=== PATIENT | male | born 1970 | race Caucasian/White ===

== ENCOUNTER → 2025-03-07 | Outpatient (CLI) | payer SELFPAY ==
--- NOTE | 2025-03-07 | LES_PTH ---
PATIENT: YEMI SALEH LOC: [facility] U#:[id number] AGE/SX: 54/M ROOM: RE03/07/[address]: Dr. Thaddeus Ro MD : [id number] BED: DIS: 03/07/2025 SPEC #: [id number] RECD: 03/07/25 14:49 STATUS: ROCIO REAlondra #: [id number] VALERIA: 03/07/25 00:[address]: Thaddeus Ro DEPT: SURGICAL PATHOLOGY RECD BY: Anibal Hickman ENTERED: 03/08/25 10:11 SP TYPE: Lesion OTHR DR: HENRRY Darnell Tissues: A - Skin of forearm, NOS Procedures: Surgery Specimen Level IV HEADER OPERATION: Left forearm biopsy PRE-OP DIAGNOSIS: Left forearm biopsy TISSUE SUBMITTED: A- Left forearm tissue MICROSCOPIC DIAGNOSIS A. Left forearm, core biopsy: * Focal epidermis with solar lentigo. * Fragments of keratin debris with focal squamous lining, consistent with epidermal inclusion cyst. * No evidence of malignancy seen in these sections. MICROSCOPIC DESCRIPTION Slides are reviewed. GROSS DESCRIPTION A. Received in formalin in a container labeled with the patient's name, date of , and forearm tissue are multiple white-simon, wispy, and friable fragments of soft tissue measuring 1.5 x 0.6 x 0.3 cm in aggregate. No distinct skin is identified. The specimen is submitted in toto in A1. [facility] 03/07/2025 CPT:25582
== END | disposition home or self-care (01) ==
PROVIDERS: PCP Physician Assistant; Referring Provider Surgery; Visit Provider Surgery
DX: L81.4 Other melanin hyperpigmentation (principal); L72.0 Epidermal cyst
CPT/HCPCS: 88305

== ENCOUNTER 2025-04-16 14:27 | Observation (INO) | payer SELFPAY ==
--- NOTE | 2025-04-09 07:30 | EKG12_ITS ---
Test Reason : PREOP Blood Pressure : */* mmHG Vent. Rate : 72 BPM Atrial Rate : 72 BPM P-R Int : 168 ms QRS Dur : 98 ms QT Int : 382 ms P-R-T Axes : 44 -13 33 degrees QTcB Int : 418 ms Normal sinus rhythm Inferior infarct , age undetermined Abnormal ECG Confirmed by ANTONIO JENNINGS, RC ([id number]), video effects editor KALEB ROSALES ([id number]) on 04/10/2025 11:01:26 AM Referred By: Thaddeus Ro Confirmed By: RC ALVAREZ MD
[2025-04-09 09:13] LABS: Hematocrit 45.0 % (40-54); Hemoglobin 14.6 g/dL (13.0-16.5); Mean Corp Hgb Conc 32.4 g/dL (32-36); Mean Corpuscular Volume 91.1 fL (80-94); Mean Platelet Vol. 10.8 fl (6.2-12.0); Platelet Count 325 K/mm3 (150-450); RBC Distribution Width CV 13.1 % (11.6-14.6); RBC Distribution Width SD 42.8 fl (35.1-43.9); Red Blood Count 4.94 M/mm3 (4.6-6.2); White Blood Count 8.6 K/mm3 (4.4-11.0)
[2025-04-09 09:45] LABS: Anion Gap 14 (5-15); BUN 15 mg/dL (4-19); BUN/Creat Ratio 13.1 RATIO (10-20); Calcium,Total 9.3 mg/dL (7.6-11.0); Carbon Dioxide 21.5 mmol/L (21.0-32.0); Chloride 102 mmol/L (98-108); Glucose 265 mg/dL (70-99); Potassium 4.8 mmol/L (3.3-5.1)
--- NOTE | 2025-04-09 21:55 | PAT.ANESEVAL ---
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 When Was Last Pacemaker Check QUESTION #4 FULL TEXT: You/Your Family Experience fever (hyperthermia) with Anesthesia Last Oral Intake Last Oral intake: Last Oral Intake NPO since Meds taken in AM with sips of water? Meds patient instructed to take am of surgery PONV PONV - sprinkler repair technician: PONV - sprinkler repair technician Female No 04/02/25 11:11 HX of Motion Sickness No 04/02/25 11:11 HX of N/V After Surgery No 04/02/25 11:11 Non-Smoker Yes 04/02/25 11:11 Duration of Surgery greater No 04/02/25 11:11 than 60 minutes Number of Risk Factors 1 04/02/25 11:11 PONV Score Low Risk 04/02/25 11:11 Height & Weight Height & Weight: Anesthesia: Height & Weight Height 5 ft 10 in 03/07/25 09:22 Respiratory Assessment Respiratory Assessment - sprinkler repair technician: Respiratory Tract Infection Hx - sprinkler repair technician Hx Respiratory Tract Infection No 04/02/25 11:11 STOP Sleep Apnea STOP Sleep Apnea - sprinkler repair technician: STOP Sleep Apnea - sprinkler repair technician Hx Hypertension Yes 04/02/25 11:11 Hx Sleep Apnea No 04/02/25 11:11 CPAP BIPAP Do you snore loudly (louder No 04/02/25 11:11 than talking or can be heard Do you often feel tired/ No 04/02/25 11:11 fatigued/ sleepy during daytime? Has anyone observed you stop No 04/02/25 11:11 breathing during sleep? STOP Results Negative 04/02/25 11:11 QUESTION #5 FULL TEXT : Do you snore loudly (louder than talking or can be heard through closed doors)? 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 Specify any problems Hx of Preganancy in last 3 N/A 04/02/25 11:11 Months Nurse Filling Out Transfusion [facility] 04/02/25 11:11 & Questions: Date: 04/02/25 04/02/25 11:11 Time: 11:18 04/02/25 11:11 Patient unable to answer at this time (ie. 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 Home Medications ?Medication ?Instructions ?Recorded ?Last Taken ?Type aspirin 81 mg tablet,delayed 81 mg PO QDAY 03/07/25 Unknown History release (Adult Aspirin Regimen) atorvastatin 40 mg tablet 40 mg PO QPM 03/07/25 Unknown History carvedilol 3.125 mg tablet 3.125 mg PO BID 03/07/25 Unknown History clopidogrel 75 mg tablet 75 mg PO QDAY 03/07/25 Unknown History glipizide 10 mg tablet, extended 10 mg PO QDAY 03/07/25 Unknown History release 24 hr metformin 1,000 mg tablet 1,000 mg PO BID 03/07/25 Unknown History rosuvastatin 10 mg tablet (Crestor) 10 mg PO QDAY 03/07/25 Unknown History Allergy/AdvReac Type Severity Reaction Status Date / Time No Known Allergies Allergy Verified 04/02/25 11:09 Surgical History H/O lithotripsy Hx of right heart catheterization Social History (Updated 03/07/25 @ 09:22 by Harriet Lozano LPN) Smoking Status: Former smoker alcohol intake: never substance use type: does not use Audit: Pertinent Findings Pertinent Findings EKG Perinent findings: April 09, 2025. Normal sinus rhythm. Inferior infarct, age undetermined. Recommendation Anesthesia Recommendation Anesthesia recommendation: OPTIMIZED for anesthesia
--- NOTE | 2025-04-10 08:31 | PAT.ANESEVAL ---
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 When Was Last Pacemaker Check QUESTION #4 FULL TEXT: You/Your Family Experience fever (hyperthermia) with Anesthesia Last Oral Intake Last Oral intake: Last Oral Intake NPO since Meds taken in AM with sips of water? Meds patient instructed to take am of surgery PONV PONV - mental health unit lead psychologist: PONV - mental health unit lead psychologist Female No 04/02/25 11:11 HX of Motion Sickness No 04/02/25 11:11 HX of N/V After Surgery No 04/02/25 11:11 Non-Smoker Yes 04/02/25 11:11 Duration of Surgery greater No 04/02/25 11:11 than 60 minutes Number of Risk Factors 1 04/02/25 11:11 PONV Score Low Risk 04/02/25 11:11 Height & Weight Height & Weight: Anesthesia: Height & Weight Height 5 ft 10 in 03/07/25 09:22 Respiratory Assessment Respiratory Assessment - mental health unit lead psychologist: Respiratory Tract Infection Hx - mental health unit lead psychologist Hx Respiratory Tract Infection No 04/02/25 11:11 STOP Sleep Apnea STOP Sleep Apnea - mental health unit lead psychologist: STOP Sleep Apnea - mental health unit lead psychologist Hx Hypertension Yes 04/02/25 11:11 Hx Sleep Apnea No 04/02/25 11:11 CPAP BIPAP Do you snore loudly (louder No 04/02/25 11:11 than talking or can be heard Do you often feel tired/ No 04/02/25 11:11 fatigued/ sleepy during daytime? Has anyone observed you stop No 04/02/25 11:11 breathing during sleep? STOP Results Negative 04/02/25 11:11 QUESTION #5 FULL TEXT : Do you snore loudly (louder than talking or can be heard through closed doors)? 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 Specify any problems Hx of Preganancy in last 3 N/A 04/02/25 11:11 Months Nurse Filling Out Transfusion [facility] 04/02/25 11:11 & Questions: Date: 04/02/25 04/02/25 11:11 Time: 11:18 04/02/25 11:11 Patient unable to answer at this time (ie. 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 Home Medications ?Medication ?Instructions ?Recorded ?Last Taken ?Type aspirin 81 mg tablet,delayed 81 mg PO QDAY 03/07/25 Unknown History release (Adult Aspirin Regimen) atorvastatin 40 mg tablet 40 mg PO QPM 03/07/25 Unknown History carvedilol 3.125 mg tablet 3.125 mg PO BID 03/07/25 Unknown History clopidogrel 75 mg tablet 75 mg PO QDAY 03/07/25 Unknown History glipizide 10 mg tablet, extended 10 mg PO QDAY 03/07/25 Unknown History release 24 hr metformin 1,000 mg tablet 1,000 mg PO BID 03/07/25 Unknown History rosuvastatin 10 mg tablet (Crestor) 10 mg PO QDAY 03/07/25 Unknown History Allergy/AdvReac Type Severity Reaction Status Date / Time No Known Allergies Allergy Verified 04/02/25 11:09 Surgical History H/O lithotripsy Hx of right heart catheterization Social History (Updated 03/07/25 @ 09:22 by Harriet Lozano LPN) Smoking Status: Former smoker alcohol intake: never substance use type: does not use Audit: Pertinent Findings HISTORY of Pertinent Findings History of Pertinent Findings: EKG Pertinent Findings EKG Perinent findings April 09, 2025. Normal sinus 04/09/25 21:58 rhythm. Inferior infarct, age undetermined. Recommendation Anesthesia Recommendation Anesthesia recommendation: F/U recommended (Contact Dr. Ro with A1C and glucose results, ask for clearance from him as this will impair wound healing for the mastectomy)
[2025-04-16] VITALS (15 sets, daily range): BP systolic 128–170; BP diastolic 66–96; PULSE 75–93; RESP 16–20; TEMP 36.2–36.8; O2SAT 89–97; BMI 39.5
--- NOTE | 2025-04-16 09:32 | NM_ITS ---
PROCEDURE: LYMPH NODE INJECTION ONLY 04/16/2025 REASON FOR EXAM: LEFT BREAST CANCER TECHNIQUE: LYMPH NODE INJECTION ONLY Multiple injections of 99m Tc filtered Lymphoseek were administered into the left breast tissue surrounding the lesion site. Anterior and lateral projection images of the chest were subsequently obtained. A hand-held gamma probe was also used to iona the site of sentinel lymph node on the skin surface. At the end of the procedure, the probe was supplied to the general surgery service for intraoperative localization of the sentinel node. RADIOPHARMACEUTICAL DOSE: Intradermal injection of 580 uCi Lymphoseek for left sentinel node imaging. COMPARISON: None. NM/Lymph Node Injection Only IMPRESSION: Intradermal injection Lymphoseek in the left breast for sentinel node imaging. Reading Location: [place] [id number]
[2025-04-16] MEDS: Lactated Ringers 1,000 ML 15 ML IV (10:08)
--- NOTE | 2025-04-16 10:32 | PCM.PRE.AN2 ---
ASA Classification* ASA Classification ASA Classification: 3 Assessment & Plan Anesthesia* Anesthesia Assessment Anesthesia Assessment: Discussed sedation and/or anesthesia options, risks, benefits, and alternatives with patient/parents/legal guardian/POA. Questions invited. The patient/parents/legal guardian/POA seems to understand and agrees to proceed with anesthesia plan. Reviewed the physical assessment, medical history, allergy history and patient home medications list prior to surgery/procedure/anesthetic and documented any changes. Performed airway and anesthesia risk assessments. Anesthesia Type Anesthesia Type: General History Source History Obtained from:: Patient and Chart Anesthesia Focused Assessment* Temperature: 98.1 F Pulse Rate: 75 Blood Pressure: 170/96 Respiratory Rate: 20 Pulse Ox: 96 Oxygen Delivery Method: Room Air Airway Assessment Mouth opens: >3 cm Mallampati Score: II Teeth Condition: Intact Neck Range of motion (ROM): Full ROM Labs Anesthesia Preop lab: CBC WBC 8.6 K/mm3 (4.4-11.0) 04/09/25 07:45 04/09/25 RBC 4.94 M/mm3 (4.6-6.2) 04/09/25 07:45 04/09/25 Hgb 14.6 g/dL (13.0-16.5) 04/09/25 07:45 04/09/25 Hct 45.0 % (40-54) 04/09/25 07:45 04/09/25 Plt Count 325 K/mm3 (150-450) 04/09/25 07:45 04/09/25 CHEMISTRY Potassium 4.8 mmol/L (3.3-5.1) 04/09/25 07:45 04/09/25 Sodium 137 mmol/L (133-145) 04/09/25 07:45 04/09/25 BUN 15 mg/dL (4-19) 04/09/25 07:45 04/09/25 Creatinine 1.14 mg/dL (0.70-1.20) 04/09/25 07:45 04/09/25 Glucose 265 mg/dL (70-99) H 04/09/25 07:45 04/09/25 POC Glucose 247 mg/dL (74-106) H 04/16/25 09:53 04/16/25 COAG Pre-Assessment Diagnosis/Proposed Procedure Planned Operative Procedure(s): (L) Mastectomy Left with SLN biopsy and excision of left forearm mass Anesthesia History Anesthesia History - 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 When Was Last Pacemaker Check QUESTION #4 FULL TEXT: You/Your Family Experience fever (hyperthermia) with Anesthesia Last Oral Intake Last Oral intake: Last Oral Intake NPO since 21:00 04/16/25 09:55 Meds taken in AM with sips of Yes 04/16/25 09:55 water? Meds patient instructed to take am of surgery PONV PONV - channel lip stiffener insoles: PONV - channel lip stiffener insoles Female No 04/02/25 11:11 HX of Motion Sickness No 04/02/25 11:11 HX of N/V After Surgery No 04/02/25 11:11 Non-Smoker Yes 04/02/25 11:11 Duration of Surgery greater No 04/02/25 11:11 than 60 minutes Number of Risk Factors 1 04/02/25 11:11 PONV Score Low Risk 04/02/25 11:11 Height & Weight Height & Weight: Anesthesia: Height & Weight Height 5 ft 10 in 04/16/25 09:55 Weight: 125 kg 04/16/25 09:55 Body Mass Index (BMI) 39.5 04/16/25 09:55 Respiratory Assessment Respiratory Assessment - channel lip stiffener insoles: Respiratory Tract Infection Hx - channel lip stiffener insoles Hx Respiratory Tract Infection No 04/02/25 11:11 STOP Sleep Apnea STOP Sleep Apnea - channel lip stiffener insoles: STOP Sleep Apnea - channel lip stiffener insoles Hx Hypertension Yes 04/02/25 11:11 Hx Sleep Apnea No 04/02/25 11:11 CPAP BIPAP Do you snore loudly (louder No 04/02/25 11:11 than talking or can be heard Do you often feel tired/ No 04/02/25 11:11 fatigued/ sleepy during daytime? Has anyone observed you stop No 04/02/25 11:11 breathing during sleep? STOP Results Negative 04/02/25 11:11 QUESTION #5 FULL TEXT : Do you snore loudly (louder than talking or can be heard through closed doors)? 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 Specify any problems Hx of Preganancy in last 3 N/A 04/02/25 11:11 Months Nurse Filling Out Transfusion [facility] 04/02/25 11:11 & Questions: Date: 04/02/25 04/02/25 11:11 Time: 11:18 04/02/25 11:11 Patient unable to answer at this time (ie. confused, unrespo /Reproduction History /Reproductive History - channel lip stiffener insoles: /Reproductive Hx- channel lip stiffener insoles Hx Now Gestational Age (in weeks): EDC: Hx Hx Para Hx Section SAB Active Medications Active Medications: Current Medications Generic Name Dose Route Start Last Admin Trade Name Freq PRN Reason Stop Dose Admin Cefazolin Sodium 3 gm/ Sodium 115 mls @ 200 mls/hr 04/16/25 11:00 Chloride IV 04/16/25 11:34 INTRAOP ONE Lactated Ringer's 1,000 mls @ 15 mls/hr 04/16/25 09:45 04/16/25 10:08 IV 15 mls/hr .Q48H JACQUIE Administration PFSH Medical History Cardiology follow-up encounter Wears dentures Diabetes History of renal disease Fatty liver High cholesterol Easy bruising Dietary restriction Former smoker Hypertension History of heart attack Mass of left forearm Normal colonoscopy 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 Home Medications ?Medication ?Instructions ?Recorded ?Last Taken ?Type aspirin 81 mg tablet,delayed 81 mg PO QDAY 03/07/25 04/08/25 History release (Adult Aspirin Regimen) atorvastatin 40 mg tablet 40 mg PO QPM 03/07/25 04/15/25 History carvedilol 3.125 mg tablet 3.125 mg PO BID 03/07/25 04/16/25 History clopidogrel 75 mg tablet 75 mg PO QDAY 03/07/25 04/08/25 History glipizide 10 mg tablet, extended 10 mg PO QDAY 03/07/25 04/15/25 History release 24 hr metformin 1,000 mg tablet 1,000 mg PO BID 03/07/25 04/15/25 History rosuvastatin 10 mg tablet (Crestor) 10 mg PO QDAY 03/07/25 04/15/25 History Allergy/AdvReac Type Severity Reaction Status Date / Time No Known Allergies Allergy Verified 04/16/25 09:50 Surgical History H/O lithotripsy Hx of right heart catheterization Social History (Updated 03/07/25 @ 09:22 by Harriet Lozano LPN) Smoking Status: Former smoker alcohol intake: never substance use type: does not use Review of Systems (Anesthesia) ROS Narrative System reviewed and no additional complaints, except as documented. Physical Exam Const alert, oriented x3 and average body habitus HEENT dentition normal Neck full ROM Resp normal respiratory effort and normal air movement Cardio regular rate and regular rhythm Back/Spine normal ROM Extremity full ROM Skin Rashes: no rashes Neuro oriented x3 and moves all extremities
--- NOTE | 2025-04-16 10:52 | PCM.HP.STD ---
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 Home Medications ?Medication ?Instructions ?Recorded ?Last Taken ?Type aspirin 81 mg tablet,delayed 81 mg PO QDAY 03/07/25 04/08/25 History release (Adult Aspirin Regimen) atorvastatin 40 mg tablet 40 mg PO QPM 03/07/25 04/15/25 History carvedilol 3.125 mg tablet 3.125 mg PO BID 03/07/25 04/16/25 History clopidogrel 75 mg tablet 75 mg PO QDAY 03/07/25 04/08/25 History glipizide 10 mg tablet, extended 10 mg PO QDAY 03/07/25 04/15/25 History release 24 hr metformin 1,000 mg tablet 1,000 mg PO BID 03/07/25 04/15/25 History rosuvastatin 10 mg tablet (Crestor) 10 mg PO QDAY 03/07/25 04/15/25 History Allergy/AdvReac Type Severity Reaction Status Date / Time No Known Allergies Allergy Verified 04/16/25 09:50 Surgical History H/O lithotripsy Hx of right heart catheterization Social History (Updated 03/07/25 @ 09:22 by Harriet Lozano LPN) Smoking Status: Former smoker alcohol intake: never substance use type: does not use ROS Constitutional Constitutional: Reports systems reviewed and no addt'l complaints, except as documented Eyes Eyes: Reports systems reviewed and no addt'l complaints, except as documented ENT HEENT: Reports systems reviewed and no addt'l complaints, except as documented Cardiovascular Cardiovascular: Reports systems reviewed and no addt'l complaints, except as documented Respiratory/Chest Respiratory/Chest: Reports systems reviewed and no addt'l complaints, except as documented Gastrointestinal Gastrointestinal: Reports systems reviewed and no addt'l complaints, except as documented Genitourinary Genitourinary: Reports systems reviewed and no addt'l complaints, except as documented Musculoskeletal Musculoskeletal: Reports systems reviewed and no addt'l complaints, except as documented Integumentary Integumentary: Reports systems reviewed and no addt'l complaints, except as documented Vital Signs Vital Signs Vital Signs: 04/16/25 09:55 04/16/25 09:55 04/16/25 10:33 Temperature 98.1 F 98.1 F Temperature Source Temporal Pulse Rate 75 75 Respiratory Rate 20 H 20 H Respiratory Pattern Normal Blood Pressure 170/96 H 170/96 H Blood Pressure Mean 120 Blood Pressure Source Monitor Blood Pressure Position Semi-Fowlers Blood Pressure Location Left Arm Pulse Ox 96 96 Oxygen Delivery Method Room Air Room Air Weight Weight: 275 lb 9.245 oz Body Mass Index (BMI) 39.5 Physical Exam Const alert, oriented x3 and no apparent distress Results Lab / Micro Data 04/09/25 07:45 04/09/25 07:45 Labs: Laboratory Results - last 24 hr 04/16/25 09:53: POC Glucose 247 H Assessment & Plan Assessment/Plan (1) Mass of left forearm: (2) 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
[2025-04-16] MEDS: Cefazolin 3 GM in 0.9% Normal Saline (100mL Bag) 100 ML IV (11:00)
--- NOTE | 2025-04-16 11:00 | LYMN_PTH ---
PATIENT: YEMI SALEH LOC: MS3 U#:[id number] AGE/SX: 54/M [place] [facility] [place]16/[address]: Dr. Thaddeus Ro MD : 1970 BED: 1 DIS: 04/17/2025 SPEC #: [id number] RECD: 04/16/25 12:09 STATUS: ROCIO REAlondra #: [id number] VALERIA: 04/16/25 11:[address]: Thaddeus Ro DEPT: SURGICAL PATHOLOGY RECD BY: Anibal Hickman ENTERED: 04/16/25 12:53 SP TYPE: LYMPH NODE OTHR DR: HENRRY Darnell Tissues: A - LYMPH NODE BIOPSY B - Left breast, NOS C - LYMPH NODE BIOPSY D - Forearm, NOS Procedures: Frozen Section (charge) Immunohistochemical Stains Frozen Section Add'l ([facility]) Surgery Specimen Level V IHC Stain ADDITIONAL HEADER OPERATION: Mastectomy with left sentinel lymph node biopsy and excision of left forearm PRE-OP DIAGNOSIS: Mass of left forearm, 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 Left sentinel lymph node, biopsy: Negative for macrometastasis. B. Left sentinel lymph node, #2, biopsy: Negative for macrometastasis. MICROSCOPIC DIAGNOSIS A. Lymph node, sentinel, left excision: - Negative for metastasis (0/1). - IHC for panKeratin supports the histologic impression. B. Breast, left, invasive ductal carcinoma, mastectomy: - Invasive carcinoma with sebaceus differentiation (2.1 cm), surgical margins free - see note. Note: The histologic differential diagnosis includes sebaceous carcinoma of the skin vs invasive ductal carcinoma of the breast with sebaceous differentiation. Formal (outside) consultation with a breast expert pathologist is PENDING and the beauty sales consultant's opinion will be reported in an addendum. C. Lymph node, sentinel, left, excision: - Negative for metastasis (0/1). - IHC for panKeratin supports the histologic impression. D. Forearm, left, mass, excision: - Epidermal inclusion cyst. COMMENT The case was discussed with Dr Tu Ro 05/07/25. The case will be sent for formal consultation with a breast specialist pathologist. The beauty sales consultant's diagnosis will be reported in an addendum. MICROSCOPIC DESCRIPTION Slides are reviewed. All matched controls reacted appropriately. These tests were developed and their performance characteristics determined by [facility]. They may not have been cleared or approved by the U.S. Food and Drug Administration. The FDA has determined that such clearance or approval is not necessary.? The above immunohistochemical/dualISH?markers are reviewed by the Pathologist. GROSS DESCRIPTION A. Received fresh for frozen section diagnosis labeled with the patient's name and date of . Designated as left sentinel lymph node is a 1.0 x 0.7 x 0.4 cm intact lymph node. Blue dye is present. The specimen is serially sectioned and entirely submitted for frozen section diagnosis and subsequently placed in cassette A1 for permanent sections. B. Received fresh and subsequently placed in formalin, labeled with the patient's name and date of . Designated as L breast mastectomy long tag lateral short tag superior is a 472.2 g mastectomy measuring 21.4 x 17.3 x 4.5 cm (ML/SI/AP). The specimen is surfaced by a 16.0 x 6.5 cm dos santos skin ellipse. There is a central nipple and areola, 1.4 cm and 2.3 cm, respectively. The nipple is firm with red-purple discoloration. There is blue surgical dye discoloration of the skin at the inferior and posterior aspects of the specimen. An axillary tail is not grossly present. Muscle is not present on the posterior aspect.There is a long suture designated as lateral and a short suture designated as superior. The specimen is inked as follows: Superior: BlueInferior: Green Posterior: BlackMedial: YellowLateral: Louisa The specimen is serially sectioned into 18 levels revealing a 2.1 x 2.0 x 1.9 cm indurated, white subareolar mass with slightly irregular borders, spanning levels 9 and 10. A ribbon biopsy clip is identified in level 9. The mass is located the following distances from:Superior: 3.6 cmInferior: 1.7 cmPosterior: 3.1 cmNipple: Grossly involved No secondary masses are grossly appreciated The remaining cut surfaces are fibrofatty (95% fatty, 5% fibrotic) with patchy blue dye discoloration throughout. Produce Team Member sections are submitted as follows: B1: Mass to nipple/areolaB2: Mass to nipple and areola with biopsy siteB3: Mass to surrounding parenchyma, level 10B4: Closest superior/inferior margins, level 9/10B5: Closest posterior margin, level 9B6: Upper outer quadrant, level 17B7: Upper inner quadrant, level 6B8: Lower outer quadrant, level 14B9: Lower inner quadrant, level 7 Cold ischemic time: 36 minutesFormalin fixation time: 31 hours C. Received fresh for frozen section diagnosis labeled with the patient's name and date of . Designated as left sentinel node #2 is a 1.3 x 0.8 x 0.8 cm lymph node with attached soft tissue. Blue dye is present. Sectioning reveals an additional, possible 0.9 x 0.5 x 0.2 cm lymph node which is bisected. The specimen is entirely submitted for frozen section diagnosis and subsequently placed 2 cassettes as follows: C1: Smaller, possible lymph nodeC2: Larger lymph node with blue dye D. Received in formalin labeled with the patient's name and date of . Designated as left forearm mass is a 3.3 x 2.3 x 0.4 cm previously disrupted dos santos-white cyst wall with adherent, sebaceous like material. Produce Team Member sections are submitted in 1 cassette. [place] 04/17/2025 CPT:[id number] ADDENDUM ADDENDUM ADDENDUM ADDENDUM ADDENDUM ADDENDUM ADDENDUM ADDENDUM ADDENDUM ADDENDUM ADDENDUM ADDENDUM ADDENDUM ADDENDUM ADDENDUM ADDENDUM ADDENDUM ADDENDUM ADDENDUM ADDENDUM ADDENDUM ADDENDUM ADDENDUM ADDENDUM ADDENDUM ADDENDUM ADDENDUM 07/04/2025 08:46 ADDENDUM 05/31/2025 16:28 ADDENDUM 05/31/2025 16:28 ADDENDUM 05/31/2025 16:28 ADDENDUM 05/31/2025 16:28 ADDENDUM 05/31/2025 16:28 This addendum is added to incorporate an outside pathology consultation report. The case was examined at [facility] by Dr. Jay and the following diagnosis was rendered. Left breast, mastectomy: Invasive carcinoma with sebaceous differentiation, involving skin, subcutaneous tissue and breast tissue, 2.1cm by report. See note. NOTE: On provided immunostains the tumor cells are positive for ER (>95%, moderate to strong), MS (>95%, strong), AR (>95%, strong), CK7, GATA3 and TRPS1 and show strong membrane staining for E-cadherin. They are negative for HER2 (0; null) and negative mucin on a provided mucicarmine stain. On immunostains performed at [facility], the tumor cells are negative for CD10 and D2-40. On the slides provided for review, the bulk of the tumor appears to be in skin and subcutaneous tissue with superficial involvement of the breast paranchema. While this raises concern for a cutaneous rather than a breast origin, after reviewing this case Dr. Rusty Cummins ([facility] Dermatopathology) favors a breast over a cutaneous origin for the following reasons : 1) there is no clear evidence of an epidermal connection or in situ component; 2) sebaceous carcinomas are less likely than breast carcinomas to express ER and MS, particularly extra-ocular sebaceous carcinomas which are typically triple negative; 3) the strong expression of TRPS1 is uncommon in sebaceous carcinomas, However, the possibility of a cutaneous origin cannot be completely excluded. Please see complete above mentioned consultation report in EMR This addendum is added to incorporate an outside pathology consultation report. ONCOTYPE DX BREAST RECURRENCE SCORE REPORT: Recurrence Score Result: 7 Distant recurrence Risk at 10 years: 5% Group Average Absolute Chemotherapy Benefit: No apparent chemotherapy benefit (<1%) Please see complete above mentioned consultation report in EMR
[2025-04-16] MEDS: Bupiv/Epi 0.25% 30 ML Vial ×2 (11:25→12:31)
--- NOTE | 2025-04-16 13:15 | PCM.POST.ANE ---
Anesthesia: Postop Eval I Current Vital Signs Temperature: 97.3 F Pulse Rate: 82 Blood Pressure: 148/94 Respiratory Rate: 16 Pulse Ox: 94 Oxygen Delivery Method: Nasal Cannula Oxygen Flow Rate (L/min): 4 Assessment Airway patent: Yes Spontaneous unlabored respirations: Yes Mental status: Awake and Calm nausea: No Vomiting: No Anesthesia Complication: No Fluid Hydration Crystalloid volume administer (ml): 1,000 Total IV fluid infused: 1,000 Progress Note Anesthesia document: Postop Eval 1 completed: Yes
--- NOTE | 2025-04-16 13:19 | PCM.OPRPT ---
Problems Associated Problem List Diagnoses (1) Mass of left forearm: (2) 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: Oncology: Neville Requirements . Oncology surgical intervention performed: [place] Node Biopsy for Breast Cancer performed [place] Node Bx - Breast Cancer: Synoptic Portion: Element Response Options Operation performed with curative intent. Yes Tracer(s) used to identify sentinel nodes in the upfront surgery (non-neoadjuvant) setting (select all that apply). Dye; Radioactive tracer Tracer(s) used to identify sentinel nodes in the neoadjuvant setting (select all that apply).[ N/A.] All nodes (colored or non-colored) present at the end of a dye-filled lymphatic channel were removed. Yes All significantly radioactive nodes were removed. Yes All palpably suspicious nodes were removed. Yes Biopsy-proven positive nodes marked with clips prior to chemotherapy were identified N/A.] Multi Select Codes Integumentary Integumentary CPT Codes: 33907 Mast simple complete Musculoskeletal Musculoskeletal CPT Codes: 69501 Ex arm/elbow anastasia deep < 5 cm Respiratory/Cardiovascular Resp/Cardiovascular CPT Codes: 59811 Biopsy/removal lymph nodes Operative Report (Standard) Operative Information Date of Procedure: 04/16/25 Pre-Operative Diagnosis: 1. Left breast cancer 2. Left forearm sebaceous cyst Post-Operative Diagnosis: Same Surgery/Procedure Performed: 1. Left breast simple mastectomy 2. Left axillary sentinel lymph node biopsy 3. Excision of left forearm sebaceous cyst airline flight attendant: Yes Clinical Programmer: Jaymie Lakhani Tasks completed by operations administrative assistant: Closing and Retracting Additional statistical assistant?: No Type of Anesthesia: General and Local RN Documented Start/Stop Times: Operation Date: 04/16/25 11:00 Case Time Into Pre-Op 04/16/25 09:31 Anesthesia Start 04/16/25 11:00 Into Room 04/16/25 11:00 Out of Pre-Op 04/16/25 11:00 Procedure Start 04/16/25 11:26 Procedure End 04/16/25 13:04 Anesthesia End 04/16/25 13:06 Out of Room 04/16/25 13:06 Into Recovery 04/16/25 13:11 Procedure Start Time: 11:26 Procedure Stop Time: 13:04 Select all DRAINS/GRAFTS/IMPLANTS that apply: Implanted device Implanted device details: MONSERRAT drain x 2 Special Medications: 3 g Ancef IV preop Estimated Blood Loss: 30 cc Specimen collected: Yes Description of specimen(s) removed: 1. Left breast tissue 2. Left axillary sentinel lymph node x 2 3. Left forearm subcutaneous mass Description of surgery: The patient is a 54-year-old male recently seen through the office with an abnormality involving the left breast/nipple. This was biopsied at an outside hospital and came back positive for infiltrating ductal carcinoma. He also described a mass on the forearm of the left upper extremity. I offered him a left breast mastectomy with sentinel lymph node biopsy along with excision of the left forearm mass. We discussed the details of the planned procedure including risk benefits and alternatives. He wished to proceed. Patient was brought to the operative room today following informed consent. Preoperative antibiotics were given and a timeout was performed. Earlier in the day Lymphoseek was injected into the left periareolar area. Once placed on the operative table general anesthesia was induced. Once asleep 10 mL of Lymphazurin blue was injected into the left periareolar area. The area was then prepped and draped in the usual sterile manner. The planned incision was marked out using 2 hemostats and a suture and then the marking pen was used to traced the planned incision. Local anesthetic was injected into the area of planned incision. #10 blade was then used to make the incisions. Bovie electrocautery was then used to develop a subcutaneous plane. Skin rakes were used to aid with retraction. The superior flap was created first followed by the inferior flap. Once these flaps were taken down to the chest wall superiorly and inferiorly, the left breast tissue was taken off the chest wall in a medial to lateral fashion. The left breast was oriented such that a long stitch ivy the lateral aspect of the specimen and a short stitch ivy the superior aspect. This was then sent off for permanent pathology. Next the sentinel lymph node portion of the operation was begun. Neoprobe was used to identify regions of elevated radioactivity. Careful dissection was performed using a tonsil. A total of 2 sentinel lymph nodes were identified by both blue dye as well as elevated radioactivity counts. These were sent to pathology for frozen section. The frozen section for both lymph nodes eventually came back as negative. The wound was then irrigated with a liter of saline. Hemostasis was excellent. 2 MONSERRAT drains were then brought out through the left chest laterally. These were then secured to the skin using drain sutures. The mastectomy incision was then closed in layers using first 2-0 Vicryl in a subdermal layer. 4-0 Vicryl was then used to run the skin incision. Skin glue and a Mepilex was then applied. Attention was then turned to the left forearm. Local anesthetic was infiltrated into this region. About a 3 cm incision was made overlying the left forearm mass. The mass itself measured 4.6 cm in greatest diameter. Clinically that this was consistent with a sebaceous cyst. The cyst capsule and contents were excised completely. The resultant wound was then copiously irrigated and then closed using 3-0 Vicryl and 4-0 Vicryl. Skin glue and an OpSite were then applied as dressing. The patient was then awakened from anesthesia. A double wide [place] wrap was placed around the chest for compression. He was placed back on the transport cart and taken to recovery in good condition Surgical Findings: [place] lymph nodes x 2 both negative Complications Complications: No Admit VTE Documentation VTE Present on Admission: No VTE Mechan Device Prophylaxis: SCD's VTE Pharm Prophylaxis ordered?: No Reason prophylaxis not ordered: Treatment Not Indicated
--- NOTE | 2025-04-16 14:17 | POSTOPAN2_ITS ---
Anesthesia Postop Eval I Sum Postop Eval Completion status Anesthesia document: Postop Eval 1 completed: Yes Anesthesia Postop Eval I Summary Anesthesia Postop Eval I Summary: Anesthesia Postop Eval I: Assessment Summary Airway patent Yes 04/16/25 13:16 HOME OFFICE REPRESENTATIVE.[email or web address] Spontaneous unlabored Yes 04/16/25 13:16 HOME OFFICE REPRESENTATIVE.ANANT respirations Mental status Awake,Calm 04/16/25 13:16 HOME OFFICE REPRESENTATIVE.[email or web address] nausea No 04/16/25 13:16 HOME OFFICE REPRESENTATIVE.[email or web address] Vomiting No 04/16/25 13:16 HOME OFFICE REPRESENTATIVE.[email or web address] Anesthesia Postop Eval I: Fluid Summary Crystalloid volume administer 1,000 04/16/25 13:16 HOME OFFICE REPRESENTATIVE.SKOBY (ml) Colloids volume administered ( ml) Blood Product volume administered (ml) Total IV fluid infused 1,000 04/16/25 13:16 HOME OFFICE REPRESENTATIVE.[email or web address] Anesthesia Postop Eval I: Summary Notes Anesthesia Complication No 04/16/25 13:16 HOME OFFICE REPRESENTATIVE.ANANT Anesthesia Complication Comment: Post-operative progress note Anesthesia: Postop Eval II Evaluation Mental status: Awake and Calm Pain Level: 4 nausea: No Vomiting: No Complications Anesthesia Complication: No
--- NOTE | 2025-04-16 14:17 | PCM.POSTANE2 ---
Anesthesia Postop Eval I Sum Postop Eval Completion status Anesthesia document: Postop Eval 1 completed: Yes Anesthesia Postop Eval I Summary Anesthesia Postop Eval I Summary: Anesthesia Postop Eval I: Assessment Summary Airway patent Yes 04/16/25 13:16 INTAKE ASSESSOR.[email or web address] Spontaneous unlabored Yes 04/16/25 13:16 INTAKE ASSESSOR.ANANT respirations Mental status Awake,Calm 04/16/25 13:16 INTAKE ASSESSOR.[email or web address] nausea No 04/16/25 13:16 INTAKE ASSESSOR.SKOBY Vomiting No 04/16/25 13:16 INTAKE ASSESSOR.[email or web address] Anesthesia Postop Eval I: Fluid Summary Crystalloid volume administer 1,000 04/16/25 13:16 INTAKE ASSESSOR.[email or web address] (ml) Colloids volume administered ( ml) Blood Product volume administered (ml) Total IV fluid infused 1,000 04/16/25 13:16 INTAKE ASSESSOR.[email or web address] Anesthesia Postop Eval I: Summary Notes Anesthesia Complication No 04/16/25 13:16 INTAKE ASSESSOR.ANANT Anesthesia Complication Comment: Post-operative progress note Anesthesia: Postop Eval II Evaluation Mental status: Awake and Calm Pain Level: 4 nausea: No Vomiting: No Complications Anesthesia Complication: No
[2025-04-16] MEDS: 0.9% Saline Lock 10 ML Syringe IV ×2 (19:38→22:36)
[2025-04-16] MEDS: 0.9% Normal Saline (1000mL) 1,000 ML 100 ML IV (22:36)
--- OUTSIDE RECORDS SUMMARY | 2025-04-16 22:57 | XMS RPT_ITS | CCD ---
Author Organization [facility] Care Team Providers Care Insole Rounder Name Role Phone Ivy Julian PA-C Unavailable Ivy Julian PA-C Unavailable Cardiology Provider Unavailable Unavailable General Surgery Provider Unavailable Unavail able Seble VALLESN, Kat Unavailable Seth VALLESN, Clara Unavailable Unavailable Trung DROP BOARD MAN, Negro Unavailable Unavailable Inder DROP BOARD MAN, Nerissa K Unavailable Unavai Ernestine Sawyer Unavailable Unavailable Rick DROP BOARD MAN, Rosio Sultana Unavailable Unavailab ras Crowley LPN, Anastasiya Unavailable Unavailabl e Unavailable Unavailable Holli Sam LPN Unavailable Unavailabl e Unavailable Unavailable IVY LAWRENCE Primary Care Physician [phone] [facility] Attending Unava ilIVY Lopez Primary Care Unavailable GUSTAVO BELLO MD Attending Unavailable IVY LAWRENCE Primary Care Unavailable GUSTAVO BELLO MD Attending Unavailable IVY LAWRENCE Primary Care Unavailable [facility] [place] Attending Unava ilmelanie SALES IVY Primary Care Unavailable IVY JULIAN Primary Care Provider Yang Ibanez DO Emergency Provider UnavailLakesha Benitez MD Attending Provider Lakesha Bradford Attending Unavailable DINO GOMEZ Primary Care Unavailable Lakesha Bradford Attending Unavailable DINO GOMEZ Primary Care Unavailable Lakesha Bradford Attending Unavailable DINO GOMEZ Primary Care Unavailable DINO GOMEZ Primary Care Unavailable Yang Ibanez Attending Unavailable Lakesha Bradford Attending Unavailable DINO GOMEZ Primary Care Unavailable JUSTICE SHANNON Attending Unavailable ELIEL SALES IVY Primary Care Unavailable [facility] Unavailable IVY JULIAN Primary Care Unavailable IVY JULIAN Consulting Unavailable IVY JULIAN Attending Unavailable IVY JULIAN Admitting Unavailable PROVIDER, UNKNOWN Consulting Unavailable IVY JULIAN Consulting Unavailable LAKESHA CHOWDARY Admitting Unavailable LAKESHA CHOWDARY Primary Care Unavailable LAKESHA CHOWDARY Attending Unavailable PROVIDER, UNKNOWN Consulting Unavailable Julian PA, Ivy Primary Care Provider Ivy Lawrence Referring Provider [phone] Jia JENNINGS, Dr. Thaddeus Forte Attending Provider Jia JENNINGS, Dr. Thaddeus Forte Referring Provider Thaddeus Ro Attending Unavailable Ivy Lawrence Primary Care Unavailable Ivy Lawrence Referring Unavailable Thaddeus Ro Attending Unavailable Thaddeus Ro Referring Unavailable Eliel SALES Ivy Primary Care Unavailable Thaddeus Ro Referring Unavailable Eliel SALES, [place] Primary Care Unavailable Thaddeus Ro Attending Unavailable Medications Current Medications Medication Drug Class(es) Dates Sig (Normalized) Sig (Original) acetaminophen 300 mg-codeine 30 mg tablet (1 source) Start: 06-11-2024 take 1 tablet by mouth every six hours as needed acetaminophen 300 mg-codeine 30 mg tablet acetaminophen 300 mg-codeine 30 mg tablet, TAKE 1 TABLET BY MOUTH EVERY 6 HOURS NEEDED Start Date: 06/11/24 Status: Ordered aspirin 81 mg delayed release oral tablet (20 sources) Platelet Aggregation Inhibitor, Nonsteroidal Anti-inflammatory Drug Start: 03-07-2025 take 1 tablet by mouth once daily Aspirin (Adult Aspirin Regimen) 81 mg tablet,delayed release (DR/EC) Active 81 mg PO daily March 07, 2025 12:00am Start: 06-06-2024 take 1 tablet by naveen th once daily Aspirin 81 mg Tablet Active 81 MG PO Every Day June 06, 2024 12:00am Start: 07-08-2021 take 1 tablet by naveen th once daily Aspirin Childrens 81 MG Oral Tablet Chewable ; 1 Tablet Chewable daily for 0 days Quantity: 90 {Tablet} Refills: 1 Ordered: 08-Jul-2021 SARAH Julian Start: 08-Jul-2021 Start: 11-15-2014 Aspir-Low 81 m g oral delayed release tablet Dose : 81 mg = 1 tab(s), Oral, Daily, # 30 tab(s), 5 Refill(s) Start Date: 11/15/14 Status: Ordered atorvastatin 40 mg oral tablet (20 sources) HMG-CoA Reductase Inhibitor Start: 12-07-2024 atorvastatin 40 mg tablet ; 1 (one) tablet at bedtime or with evening meal for 0 days Quantity: 90 {Tablet} Refills: 0 Ordered: 07-Dec-2024 SARAH Julian Start: 07-Dec-2024 Comments: replacing pravastatin Start: 12-03-2024 atorvastatin 4 0 mg tablet ; 1 (one) tablet at bedtime or with evening meal for 0 days Quantity: 90 {Tablet} Refills: 0 Ordered: 03-Dec-2024 MD Hal Vora Start: 03-Dec-2024 Comments: replacing pravastatin Start: 09-03-2024 atorvastatin 4 0 mg tablet ; 1 (one) tablet at bedtime or with evening meal for 0 days Quantity: 30 {Tablet} Refills: 2 Ordered: 03-Sep-2024 MD Hal Vora Start: 03-Sep-2024 Comments: replacing pravastatin Start: 08-03-2023 atorvastatin 4 0 mg tablet ; 1 (one) tablet at bedtime or with evening meal for 0 days Quantity: 30 {Tablet} Refills: 2 Ordered: 03-Aug-2023 KOREY Nino Start: 03-Aug-2023 Comments: replacing pravastatin Start: 10-07-2015 End: 06-09-2016 take 1.5 tablets by mouth once daily ATORVASTATIN CALCIUM, 20MG (Oral Tablet) ; 1.5 Tablet qd for 0 days Quantity: 45 {Tablet} Refills: 5 Ordered: 09-Jun-2016 KOREY Crowley Start: 07-Oct-2015 End: 09-Jun-2016 Status: Inactive Comment on above: replacing pravastati n carvedilol 3.125 mg oral tablet (20 sources) alpha-Adrenergic Hermila, beta-Adrenergic Hermila Start: 12-03-2024 carvediloL 3.125 mg tablet ; 1 Tablet two times daily for 0 days Quantity: 180 {Tablet} Refills: 0 Ordered: 01-Mar-2025 SARAH Julian Start: 01-Mar-2025 Start: 11-15-2014 carvediloL 3.1 25 mg tablet ; 1 Tablet bid for 30 days Quantity: 180 {Tablet} Refills: 1 Ordered: 30-May-2023 SARAH Julian Start: 30-May-2023 clopidogrel 75 mg oral tablet (20 sources) P2Y12 Platelet Inhibitor Start: 12-03-2024 clopidogreL 75 mg tablet ; 1 Tablet daily for 0 days Quantity: 90 {Tablet} Refills: 0 Ordered: 01-Mar-2025 SARAH Julian Start: 01-Mar-2025 Start: 11-15-2014 clopidogreL 75 mg tablet ; 1 Tablet daily for 0 days Quantity: 90 {Tablet} Refills: 1 Ordered: 30-May-2023 SARAH Julian Start: 30-May-2023 glipiZIDE er 10 mg 24 hr extended release oral tablet (20 sources) Sulfonylurea Start: 12-03-2024 glipiZIDE ER 1 0 mg tablet, extended release 24 hr ; 1 (one) Tablet daily for 0 days Quantity: 90 {Tablet} Refills: 0 Ordered: 01-Mar-2025 SARAH Julian Start: 01-Mar-2025 Start: 06-06-2024 take 1 tablet by naveen th once daily Glipizide 5 mg Tablet Active 5 MG PO Every Day June 06, 2024 12:00am Start: 05-28-2024 glipiZIDE ER 1 0 mg tablet, extended release 24 hr ; 1 (one) Tablet daily for 0 days Quantity: 90 {Tablet} Refills: 1 Ordered: 28-May-2024 SARAH Julian Start: 28-May-2024 Comments: Dose increase 12/31/22 Start: 11-28-2023 glipiZIDE ER 1 0 mg tablet, extended release 24 hr ; 1 (one) Tablet daily for 0 days Quantity: 90 {Tablet} Refills: 1 Ordered: 28-Nov-2023 SARAH Julian Start: 28-Nov-2023 Comments: Dose increase 12/31/22 Start: 05-30-2023 glipiZIDE ER 1 0 mg tablet, extended release 24 hr ; 1 (one) Tablet daily for 0 days Quantity: 90 {Tablet} Refills: 1 Ordered: 30-May-2023 SARAH Julian Start: 30-May-2023 Comments: Dose increase 12/31/22 Comment on above: Dose increase 3 metFORMIN hydrochloride 1000 mg oral tablet (20 sources) Biguanide Start: 01-18-2025 metFORMIN 1,000 mg tablet ; 1 (one) Tablet BID for 0 days Quantity: 180 {Tablet} Refills: 5 Ordered: 18-Jan-2025 SARAH Julian Start: 18-Jan-2025 Start: 05-29-2024 metFORMIN 1,00 0 mg tablet ; 1 (one) Tablet BID for 0 days Quantity: 180 {Tablet} Refills: 5 Ordered: 29-May-2024 MD Hal Vora Start: 29-May-2024 Start: 03-11-2023 take 1 tablet by [facility] twice daily metFORMIN HCl 1000 MG Oral Tablet ; 1 (one) Tablet BID for 0 days Quantity: 180 {Tablet} Refills: 5 Ordered: 11-Mar-2023 SARAH Julian Start: 11-Mar-2023 Start: 11-15-2014 metFORMIN 500 mg oral tablet Dose : 500 mg = 1 tab(s), Oral, BIDM, # 60 tab(s), 5 Refill(s) Start Date: 11/15/14 Status: Ordered nitroglycerin 0.4 mg sublingual tablet (20 sources) Nitrate Vasodilator Start: 12-30-2021 Nitrostat 0.4 MG Sublingual Tablet Sublingual ; 1 Tablet prn chest pain for 0 days Quantity: 1 {Tablet} Refills: 0 Ordered: 30-Dec-2021 SARAH Julian Start: 30-Dec-2021 Start: 11-15-2014 Nitrostat 0.4 mg sublingual tablet Dose : 0.4 mg = 1 tab(s), Sublingual, q5min, PRN Chest pain, # 150 tab(s), 5 Refill(s) Start Date: 11/15/14 Status: Ordered ondansetron 4 mg oral tablet (5 sources) Serotonin-3 Receptor Antagonist Start: 06-11-2024 take 1 tablet by mouth every six hours as needed ondansetron 4 mg oral tablet TAKE 1 TABLET BY MOUTH EVERY 6 HOURS NEEDED Start Date: 06/11/24 Status: Ordered Start: 06-06-2024 End: 06-14-2024 take 1 tablet by mouth every six hours Ondansetron 4 mg tablet,disintegrating Discontinued 4 MG PO Q6H June 06, 2024 12:00am June 14, 2024 3:35pm pravastatin sodium 40 mg oral tablet (20 sources) HMG-CoA Reductase Inhibitor Start: 06-06-2024 take 1 tablet by mouth once daily Pravastatin 40 mg Tablet Active 40 MG PO Every Day June 06, 2024 12:00am Start: 03-11-2023 End: 08-03-2023 pravastatin 40 mg tablet ; 1 (one) Tablet qhs for 0 days Quantity: 90 {Tablet} Refills: 5 Ordered: 03-Aug-2023 SARAH Julian Start: 11-Mar-2023 End: 03-Aug-2023 Status: Inactive Comments: dose increase Comment on above: dose increase rosuvastatin calcium 10 mg oral tablet (6 sources) HMG-CoA Reductase Inhibitor Start: 02-28-20 Crestor 10 mg tablet ; 1 (one) tablet at bedtime or with evening meal for 0 days Quantity: 30 {Tablet} Refills: 3 Ordered: 27-Feb-2025 SARAH Julian Start: 27-Feb-2025 Comments: No longer on atorvastatin Comment on above: No longer on atorvas tatin tamsulosin hydrochloride 0.4 mg oral capsule (1 source) alpha-Adrenergic Hermila Start: 06-11-20 take 1 capsule by mouth at bedtime tamsulosin 0.4 mg oral capsule TAKE 1 CAPSULE BY MOUTH AT BEDTIME Start Date: 06/11/24 Status: Ordered Completed/Discontinued Medications Medication Drug Class(es) Dates Sig (Normalized) Sig (Original) acetaminophen 300 mg / codeine phosphate 30 mg oral tablet (3 sources) Opioid Agonist Start: 06-20-2024 End: 06-23-2024 take 1 tablet by mouth every four hours as needed Acetaminophen-Code ine 300-30 mg tablet Discontinued 1 TAB PO Every 4 Hours as Needed 29 12June 20, 2024 12:00am June 23, 2024 12:01am acetaminophen 325 mg / oxyCODONE hydrochloride 5 mg oral tablet (4 sources) Opioid Agonist Start: 06-06-2024 End: 06-14-2024 take 1 tablet by mouth every six hours as needed Oxycodone-Acetamin ophen (Percocet) 5-325 mg tablet Discontinued 1 TAB PO Q6H as needed June 06, 2024 June 14, 2024 3:35pm azithromycin 250 mg oral tablet (20 sources) Macrolide Antimicrobial Start: 01-24-2013 End: 11-13-2014 ZITHROMAX Z-LINDSAY, 250MG (Oral Tablet) ; 2 (two) Tablet today and then 1 tablet daily x 4 days for 0 days Quantity: 1 {z-lindsay} Refills: 0 Ordered: 13-Nov-2014 KOREY Crowley Start: 24-Jan-2013 End: 13-Nov-2014 Status: Inactive cephalexin 500 mg oral capsule (3 sources) Cephalosporin Antibacterial Start: 06-20-2024 End: 06-25-2024 take 1 capsule by mouth every six hours Cephalexin 500 mg capsule Discontinued 500 MG PO Every 6 Hours 05 03June 20, 2024 12:00am June 25, 2024 12:01am lisinopril 10 mg oral tablet (20 sources) Angiotensin Converting Enzyme Inhibitor Start: 07-08-2023 End: 09-30-2023 lisinopriL 10 mg tablet ; 1 (one) tablet daily for 0 days Quantity: 30 {Tablet} Refills: 5 Ordered: 30-Sep-2023 SARAH Julian Start: 08-Jul-2023 End: 30-Sep-2023 Status: Inactive Problems Active Problems Problem Classification Problem Date Documented Da te Episodic/Chronic Abdominal pain (1 source) Unspecified abdominal pain; Translations: [Unspecified abdominal pain] Onset: 06-06-2024 Episodic Calculus of urinary tract (8 sources) Calculus of ureter; Translations: [Kidney stone] Onset: 06-11-2024 Episodic Cancer of breast (11 sources) Malignant neoplasm of unspecified site of left male breast; Translations: [Malignant neoplasm of other and unspecified sites of male breast] Onset: 03-07-2025 03-01-2025 Chronic Coronary atherosclerosis and other heart disease (20 sources) Acute coronary syndrome; Translations: [Acute ischemic heart disease, unspecified] 07-18-2019 Chronic Diabetes mellitus with complications (20 sources) Diabetes mellitus; Translations: [Type 2 diabetes mellitus with hyperglycemia] 09-30-2023 Chronic Diabetes mellitus without complication (20 sources) Diabetes mellitus without complication; Translations: [Type 2 diabetes mellitus without complications] 12-30-2022 Chronic Disorders of lipid metabolism (20 sources) Hyperlipidemia; Translations: [Hyperlipidemia, unspecified] 09-30-2023 Chronic Essential hypertension (20 sources) Hypertensive disorder; Translations: [Essential (primary) hypertension] 09-30-2023 Chronic Immunizations and screening for infectious disease (20 sources) Needs influenza immunization; Translations: [Encounter for immunization] 07-02-2020 Episodic Nonmalignant breast conditions (20 sources) Lump in left breast; Translations: [Unspecified lump in the left breast, unspecified quadrant] 01-18-2025 Episodic Other circulatory disease (20 sources) H/O: heart disorder; Translations: [Personal history of other diseases of the circulatory system] 09-30-2023 Episodic Other connective tissue disease (20 sources) Plantar fasciitis; Translations: [Plantar fascial fibromatosis] 01-15-2019 Episodic Other diseases of kidney and ureters (2 sources) Unspecified hydronephrosis; Translations: [Unspecified hydronephrosis] Onset: 06-11-2024 Episodic Other diseases of kidney and ureters (4 sources) Hydronephrosis; Translations: [Unspecified hydronephrosis] 06-06-2024 Episodic Other gastrointestinal disorders (20 sources) Stool DNA-based colorectal cancer screening positive; Translations: [Other fecal abnormalities] 12-30-2022 Episodic Other nutritional; endocrine; and metabolic disorders (20 sources) Body mass index 30+ - obesity; Translations: [Body mass index (BMI) 34.0-34.9, adult] 01-15-2019 Chronic Other skin disorders (14 sources) Nodule of subcutaneous tissue of upper limb; Translations: [Localized swelling, mass and lump, unspecified upper limb] 01-21-2025 Episodic Other skin disorders (2 sources) Mass of forearm; Translations: [Localized swelling, mass and lump, left upper limb] 03-07-2025 Episodic Other skin disorders (1 source) Other melanin hyperpigmentation; Translations: [Other melanin hyperpigmentation] Onset: 03-13-2025 Episodic Other upper respiratory infections (20 sources) Acute upper respiratory infections of unspecified site 01-24-2013 Episodic Screening and history of mental health and substance abuse codes (20 sources) Patient encounter status; Translations: [Encounter for screening for malignant neoplasm of colon] 12-30-2021 Episodic Spondylosis; intervertebral disc disorders; other back problems (20 sources) Backache; Translations: [Dorsalgia, unspecified] 11-13-2014 Episodic Unclassified (20 sources) Follow up for multiple chronic conditions - The patient is here for follow-up of diabetes, hyperlipidemia, hypertension and obesity. The patient always takes the prescribed medications. No side effects noted. The patient has an active lifestyle but no regular exercise program. The patient's glucose levels are monitored several time(s) per week. The patient states that the disease has no overall impact. Note for Multiple chronic conditions follow-up: BP this morning was 142/80. Has been doing better with eating and weight is down 9 pounds since last OV. 09-30-2023 Unclassified (20 sources) Follow up for multiple chronic conditions - The patient is here for follow-up of diabetes, hyperlipidemia and hypertension. The patient always takes the prescribed medications. No side effects noted. The patient has an active lifestyle but no regular exercise program. The patient's glucose levels are monitored several time(s) per week, out of office blood pressure checks occur frequently and dietary compliance is fairly good usually adhering to recommendations. The patient states that there is no recent angina or dyspnea, weight has increased and they do not have headaches. The patient states that the disease has no overall impact. 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 07-08-2023 Unclassified (20 sources) Follow up for multiple chronic conditions - The patient is here for follow-up of diabetes, hyperlipidemia and hypertension. The patient always takes the prescribed medications. No side effects noted. The patient has an active lifestyle but no regular exercise program. The patient's out of office blood pressure checks occur occasionally and dietary compliance is fairly good usually adhering to recommendations. The patient states that weight has decreased. The patient states that the disease has no overall impact. 06-30-2022 Unclassified (8 sources) Follow up for multiple chronic conditions - The patient is here for follow-up of depression, diabetes, hyperlipidemia and hypertension. The patient always takes the prescribed medications. No side effects noted. The patient has an active lifestyle but no regular exercise program. The patient's glucose levels are monitored on rare occasion, out of office blood pressure checks occur rarely and dietary compliance is fairly good usually adhering to recommendations. The patient states that weight has increased. The patient states that the disease has no overall impact. Note for Multiple chronic conditions follow-up: Currently dealing with dental issues so eating hasn't been as good recently. 12-30-2021 Unclassified (8 sources) [ADDITIONAL REASON] Well adult male - The patient feels well with no complaints and has good energy level. The patient has a balanced diet and takes no supplemental vitamins & iron. The patient exercises none (very active at work). The patient sleeps 6 hours per night. 12-30-2021 Unclassified (20 sources) Follow up for multiple chronic conditions - The patient is here for follow-up of coronary artery disease, diabetes, hyperlipidemia and hypertension. The patient always takes the prescribed medications. No side effects noted. The patient has an active lifestyle but no regular exercise program. The patient's glucose levels are monitored on rare occasion, out of office blood pressure checks occur rarely and dietary compliance is fairly good usually adhering to recommendations. The patient states that weight has decreased. The patient states that the disease has no overall impact. Note for Multiple chronic conditions follow-up: Tolerating higher dose of statin just fine.No concerns today. 07-01-2021 Unclassified (20 sources) Follow up for multiple chronic conditions - The patient is here for follow-up of coronary artery disease, diabetes, hyperlipidemia and hypertension. The patient always takes the prescribed medications. No side effects noted. The patient has an active lifestyle but no regular exercise program. The patient's glucose levels are monitored on rare occasion, out of office blood pressure checks occur rarely and dietary compliance is fairly good usually adhering to recommendations. The patient states that weight has decreased. The patient states that the disease has no overall impact. Note for Multiple chronic conditions follow-up: Received cologuard but never did it and isn't sure where the kit is at. 12-31-2020 Unclassified (20 sources) Follow up for multiple chronic conditions - The patient is here for follow-up of coronary artery disease, diabetes, hyperlipidemia and hypertension. The patient always takes the prescribed medications. No side effects noted. The patient has an active lifestyle but no regular exercise program. The patient's glucose levels are monitored on rare occasion, out of office blood pressure checks occur rarely and dietary compliance is fairly good usually adhering to recommendations. The patient states that weight has increased (27 lb). The patient states that the disease has no overall impact. Note for Multiple chronic conditions follow-up: YAN 08/04.Weight is up 27 pounds - hasn't been watching his diet. 07-02-2020 Unclassified (20 sources) Follow up for multiple chronic conditions - The patient is here for follow-up of coronary artery disease, diabetes, hyperlipidemia and hypertension. The patient always takes the prescribed medications. No side effects noted. The patient engages in regular exercise program 3-5 times per week. The patient's glucose levels are monitored on rare occasion (does not check), out of office blood pressure checks occur rarely (check it once this past month-states was good.) and dietary compliance is fairly good usually adhering to recommendations. The patient states that breathing effort is stable, there is no recent angina or dyspnea, there are no vision changes or weakness (check here in office last.), pain is worse (none), sleep patterns have improved and they do not have headaches. Note for Multiple chronic conditions follow-up: Last office visit 01/17/2019.No concerns today. 07-18-2019 Unclassified (20 sources) Follow up for multiple chronic conditions - The patient is here for follow-up of coronary artery disease, diabetes, hyperlipidemia and hypertension. The patient always takes the prescribed medications. No side effects noted. The patient has an active lifestyle but no regular exercise program. The patient's glucose levels are monitored on rare occasion (hasnt in last 6months), out of office blood pressure checks occur rarely (check this am 124/70.) and dietary compliance is fairly good usually adhering to recommendations. The patient states that breathing effort is stable, there is no recent angina or dyspnea, there are no vision changes or weakness (check here in office last.), pain is worse (left leg- lower back; planning to see chiropractor as that usually helps), sleep patterns have improved and they do not have headaches. 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 01-17-2019 Unclassified (20 sources) Follow up for multiple chronic conditions - The patient is here for follow-up of coronary artery disease, diabetes, hyperlipidemia and hypertension. The patient always takes the prescribed medications. No side effects noted. The patient has an active lifestyle but no regular exercise program. The patient's glucose levels are monitored on rare occasion and dietary compliance is fairly good usually adhering to recommendations. The patient states that breathing effort is stable, there is no recent angina or dyspnea, there are no vision changes or weakness, pain is generally stable (lower back.), sleep patterns have improved and they do not have headaches. Note for Multiple chronic conditions follow-up: Weight is down 3 pounds from last OV. 07-19-2018 Unclassified (20 sources) Follow up for multiple chronic conditions - The patient is here for follow-up of diabetes, hyperlipidemia, hypertension and other condition(s) (acute coronary syndrome). The patient always takes the prescribed medications. No side effects noted. The patient has an active lifestyle but no regular exercise program. The patient's glucose levels are monitored several time(s) per week (once), out of office blood pressure checks occur occasionally and dietary compliance is fairly good usually adhering to recommendations. The patient states that there is no recent angina or dyspnea, there are no vision changes or weakness, weight has increased (3 pounds) and they do not have headaches. Note for Multiple chronic conditions follow-up: No concerns today. Hasn't been eating as many salads recently due to dental work. 01-18-2018 Unclassified (20 sources) Follow-up for multiple chronic conditions ([facility]) - The patient is here for follow-up of hypertension, hyperlipidemia, diabetes and other condition(s) (acute coronary syndrome). The patient always takes the prescribed medications. No side effects noted. The patient has an active lifestyle but no regular exercise program. The patient's glucose levels are monitored several time(s) a month (about once a month and usually around 110-120), out of office blood pressure checks occur rarely (only if he feels like he needs to) and dietary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 [address] [place], [address] Glucose [Mass/Vol] 265 mg/dL High 70-99 [facility] Comment on above: Performed By: #### L 501.9985, L100.0500, L500.2500 #### [facility] [address] [place], [address] Potassium [Moles/Vol] 4.8 mmol/L Normal 3.3-5.1 [facility] Comment on above: Result Comment: Hemo lysis present, Results??could be affected. ?? Performed By: #### L 501.9985, L100.0500, L500.2500 #### [facility] [address] [place], [address] Sodium [Moles/Vol] 137 mmol/L Normal 133-145 [facility] Comment on above: Performed By: #### L 501.9985, L100.0500, L500.2500 #### [facility] [address] [place], [address] Urea nitrogen [Mass/Vol] 15 mg/dL Normal 4-19 [facility] Comment on above: Performed By: #### L 501.9985, L100.0500, L500.2500 #### [facility] [address] [place], [address] CBC-Complete Blood Cnt No Di ffon 04-09-2025 Erythrocyte distribution width (RBC) [Ratio] 13.1 % Normal 11.6-14.6 [facility] Comment on above: Performed By: #### L 501.9985, L100.0500, L500.2500 #### [facility] [address], [address] Hematocrit (Bld) [Volume fraction] 45.0 % Normal 40-54 [facility] Comment on above: Performed By: #### L 501.9985, L100.0500, L500.2500 #### [facility] [address] [place], [address] Hemoglobin (Bld) [Mass/Vol] 14.6 g/dL Normal 13.0-16.5 [facility] Comment on above: Performed By: #### L 501.9985, L100.0500, L500.2500 #### [facility] [address] [place], [address] MCH (RBC) [Entitic mass] 29.6 pg Normal 27.0-32.0 [facility] Comment on above: Performed By: #### L 501.9985, L100.0500, L500.2500 #### [facility] [address] [place], [address] MCHC (RBC) [Mass/Vol] 32.4 g/dL Normal 32-36 [facility] Comment on above: Performed By: #### L 501.9985, L100.0500, L500.2500 #### [facility] [address] [place], [address] MCV (RBC) [Entitic vol] 91.1 fL Normal 80-94 [facility] Comment on above: Performed By: #### L 501.9985, L100.0500, L500.2500 #### [facility] [address] [place], [address] Platelet mean volume (Bld) [Entitic vol] 10.8 fL Normal 6.2-12.0 [facility] Comment on above: Performed By: #### L 501.9985, L100.0500, L500.2500 #### [facility] [address] [place], [address] Platelets (Bld) [#/Vol] 325 10*3/uL Normal 150-450 [facility] Comment on above: Performed By: #### L 501.9985, L100.0500, L500.2500 #### [facility] [address] [place], [address] RBC (Bld) [#/Vol] 4.94 10*6/uL Normal 4.6-6.2 [facility] Comment on above: Performed By: #### L 501.9985, L100.0500, L500.2500 #### [facility] [address] [place], [address] RDW SD 42.8 fl Normal 35.1-43.9 [facility] Comment on above: Performed By: #### L 501.9985, L100.0500, L500.2500 #### [facility] [address] [place], [address] WBC (Bld) [#/Vol] 8.6 10*3/uL Normal 4.4-11.0 [facility] Comment on above: Performed By: #### L 501.9985, L100.0500, L500.2500 #### [facility] [address] [place], [address] Hemoglobin A1con 04-09-2025 HbA1c (Bld) [Mass fraction] 8.4 % High <=5.6 [facility] Comment on above: Result Comment: Norm al < 5.7 % Prediabetic 5.7 - 6.4 % Diabetic >or= 6.5 % Please note range changes. Performed By: #### L 501.9985, L100.0500, L500.2500 #### [facility] [address] [facility] [place], [address] MR/PAT.ANEon 04-09-2025 MR/PAT.[facility] Medical Records Department [address] [place] [address] PAT - Anesthesia 04/09/252154 MR#: [id number] Acct: [id number] Name: DELFINOYEMI Rep #: [id number] : 1970 54 From: Taras Sparrow MD PCP: HENRRY Darnell Status:PRE [facility] Y Race: C Location: [facility] Pre-Assessment Diagnosis/Proposed Procedure Planned Operative Procedure(s): (L) Mastectomy Left with SLN biopsy and excision of left forearm mass Anesthesia History Anesthesia History - director of managed care: Anesthesia History - director of managed care Hx Hospitalization Yes: [facility] 04/02/25 11:11 Any Problems With Anesthesia No 04/02/25 11:11 Cholinesterase deficiency No 04/02/25 11:11 You/Your Family Experience No 04/02/25 11:11 fever (hyperthermia) with Relationship Recent Exposure to Contagious Disease Does patient have nerve No 04/02/25 11:11 stimulator Patient instructed to have device shut off --Does patient have Pacemaker or ICD? When Was Last Pacemaker Check QUESTION #4 FULL TEXT: You/Your Family Experience fever (hyperthermia) with Anesthesia Last Oral Intake Last Oral intake: Last Oral Intake NPO since Meds taken in AM with sips of water? Meds patient instructed to take am of surgery PONV PONV - director of managed care: PONV - director of managed care Female No 04/02/25 11:11 HX of Motion Sickness No 04/02/25 11:11 HX of N/V After Surgery No 04/02/25 11:11 Non-Smoker Yes 04/02/25 11:11 Duration of Surgery greater No 04/02/25 11:11 than 60 minutes Number of Risk Factors 1 04/02/25 11:11 PONV Score Low Risk 04/02/25 11:11 Height Weight Height Weight: Anesthesia: Height Weight Height 5 ft 10 in 03/07/25 09:22 Respiratory Assessment Respiratory Assessment - director of managed care: Respiratory Tract Infection Hx - director of managed care Hx Respiratory Tract Infection No 04/02/25 11:11 STOP Sleep Apnea STOP Sleep Apnea - director of managed care: STOP Sleep Apnea - director of managed care Hx Hypertension Yes 04/02/25 11:11 Hx Sleep Apnea No 04/02/25 11:11 CPAP BIPAP Do you snore loudly (louder No 04/02/25 11:11 than talking or can be heard Do you often feel tired/ No 04/02/25 11:11 fatigued/ sleepy during daytime? Has anyone observed you stop No 04/02/25 11:11 breathing during sleep? STOP Results Negative 04/02/25 11:11 QUESTION #5 FULL TEXT : Do you snore loudly (louder than talking or can be heard through closed doors)? 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 Specify any problems Hx of Preganancy in last 3 N/A 04/02/25 11:11 Months Nurse Filling Out Transfusion [facility] 04/02/25 11:11 Questions: Date: 04/02/25 04/02/25 11:11 Time: 11:18 04/02/25 11:11 Patient unable to answer at this time (ie. 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 Normal [facility] pathology reportOrd ered By: Tiffanie Banuelos on 03-12-2025 Surgical pathology study [facility] Specimen Level Clau 03-07-2025 Surgery Specimen Level IV Patient Age/Sex Location Account Attending Physician YEMI SALEH 54[id number]. Thaddeus Ro MD Specimen: [id number] Received: 03/07/25 Status: ROCIO [place] Num: [id number] Spec Type: Lesion Subm Dr: Dr. Thaddeus Ro MD HEADER OPERATION: Left forearm biopsy PRE-OP DIAGNOSIS: Left forearm biopsy TISSUE SUBMITTED: A- Left forearm tissue MICROSCOPIC DIAGNOSIS A. Left forearm, core biopsy: * Focal epidermis with solar lentigo. * Fragments of keratin debris with focal squamous lining, consistent with epidermal inclusion cyst. * No evidence of malignancy seen in these sections. MICROSCOPIC DESCRIPTION Slides are reviewed. GROSS DESCRIPTION A. Received in formalin in a container labeled with the patient's name, date of , and forearm tissue are multiple white-simon, wispy, and friable fragments of soft tissue measuring 1.5 x 0.6 x 0.3 cm in aggregate. No distinct skin is identified. The specimen is submitted in toto in A1. [facility] 03/07/2025 CPT:94208 Patient Age/Sex Location Account Attending Physician YEMI SALEH 54/M [facility] [id number] Dr. Thaddeus Ro MD Signed (signature on file) Dr. Tiffanie Banuelos MD 03/12/25 0906 Normal [facility] Comment on above: Performed By: #### P SUIV #### [facility] [address] [place], [place], [id number] Surgery Visit Reporton 03-07 Surgery Visit Report [facility] [address] [place] [address] OFFICE VISIT Date of Service: 03/07/25 MR#: [id number] Acct: [id number] Name: YEMI SALEH Rep #: [id number] : 1970 Provider: Dr. Thaddeus og MD Age/Sex: 54/M Location: [facility] Status: Signed Intake Vital Signs 03/07/25 09:22 Height 5 ft 10 in Weight: 278 lb 8 oz BMI 39.9 BP 155/84 H Blood Pressure Location Rt brachial Position Sitting Respiration 18 Pulse 84 Pulse Source Monitor Temp 97.2 F L Temp Source Temporal Pulse Oximetry (%) 98 Oxygen Delivery Method room air Intake Visit Reasons: BREAST CANCER- SELF PAY - DISCUSS OPTIONS Chief Complaint: breast cancer- self pay- discuss options Accompanied by: Is patient in pain?: No Allergies No Known Allergies Allergy (Unverified 03/07/25 09:22) Medications ???Medication ???Instructions ???Recorded ???Confirmed ???Type aspirin 81 mg tablet,delayed 81 mg PO QDAY 03/07/25 03/07/25 Hi story release (Adult Aspirin Regimen) atorvastatin 40 mg tablet 40 mg PO QPM 03/07/25 03/07/25 His tory carvedilol 3.125 mg tablet 3.125 mg PO BID 03/07/25 03/07/25 History clopidogrel 75 mg tablet 75 mg PO QDAY 03/07/25 03/07/25 Hi story glipizide 10 mg tablet, extended 10 mg PO QDAY 03/07/25 03/07/25 Hi story release 24 hr metformin 1,000 mg tablet 1,000 mg PO BID 03/07/25 03/07/25 History rosuvastatin 10 mg tablet (Crestor) 10 mg PO QDAY 03/07/25 03/07/25 History PFSH Medical History (Updated 03/07/25 @ 12:06 by Darcy Souza) Mass of left forearm Normal colonoscopy 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 Patient had a recent episode of trauma to the left nipple region. He stated that he had pain for many hours after this incident. In the process of examining this area he noticed that this area was quite hard and he found this concerning. He brought this to the attention of his PCP who ordered imaging. These imaging studies showed a suspicious 2 cm mass. Ultrasound-guided core biopsy was performed and came back as an infiltrating ductal carcinoma. Patient sought initial opinion from a surgeon in [place] however he is seeking a second opinion. He presents today to discuss treatment options. Patient also describes a mass on the left forearm that he has had for 20+ years. He also wonders if this could be addressed at the same time as well. ROS General General: Yes breast cancer; No weight change, appetite, fatigue, colon cancer or weakness HEENT HEENT: No difficulty swallowing, eye injury, eye surgery, swollen glands or hoarseness Endo Endocrine: Yes diabetes mellitus; No thyroid disease, thyroid cancer, Hair loss, heat intolerance or cold intolerance Skin Skin: No rash or changing moles Musc Musculoskeletal: Yes back problems; No arthritis, rheumatoid arthritis, gout or joint pain Cardio Cardiovascular: Yes heart disease, heart attack and heart stent; No murmur, pacemaker, atrial fibrillation, high blood pressure, palpitations, shortness of breath with exertion or chest pain Psych Psychiatric: No depression, anxiety or hearing voices Resp Respiratory: No shortness of breath, No sleep apnea, No cough, No COPD, No asthma, No emphysema and No wheezing Gastro Gastrointestinal: No abdominal pain, No nausea or vomiting, No diarrhea, No constipation, No blood in stool, No acid reflux, Yes hemorrhoids, No ulcers, No gallbladder problem and No black,tarry stools Evens Hematologic: Yes blood thinners, No blood disorders, No bleeding, No anemia and No blood clots Neuro Neurologic: No numbness, No tingling and No weakness Exam Const General: cooperative, comfortable and no acute distress [facility] Head: normal to inspection Eyes General: appearance normal, both eyes and all related structures Neck Neck: normal visual inspection Chest Other: Examination of the right breast and axilla are unremarkable. Examination of the left breast reveals obvious mass just deep to the left nipple areolar complex. This measures about 2 or so centimeters in size. The nipple itself appears swollen compared to the right. I did not appreciate any obvious lymphadenopathy in the left axilla. Skin Other: Examination of the left forearm revealed about a 4 cm subcutaneous mass on the dorsal aspect of the le (more content not included)... Normal [facility] Final Surgical Pathology Rep elicia 02-25-2025 Final Surgical Pathology Report . Pathology Reports Accession: Collected Date/Time: Received Date/Time: Pathologist: [id number] 02/21/2025 13:46 EDT 02/22/2025 09:06 EDT NERY HOLLINS MD Final Surgical Pathology Report DIAGNOSIS: LEFT BREAST 12:00: - INVASIVE GRADE 2 DUCTAL CARCINOMA Comment: IHC pending Breast Biomarker Reporting Template TEST(S) PERFORMED: ESTROGEN RECEPTOR (ER) STATUS: Positive (greater than 10% of cells demonstrate nuclear positivity) PERCENTAGE OF CELLS WITH NUCLEAR POSITIVITY: 71-80% AVERAGE INTENSITY OF STAINING: Strong PROGESTERONE RECEPTOR (PGR) STATUS: Positive PERCENTAGE OF CELLS WITH NUCLEAR POSITIVITY: 71-80% AVERAGE INTENSITY OF STAINING: Strong HER2 BY IMMUNOHISTOCHEMISTRY: Negative (Score 0) COLD ISCHEMIA AND FIXATION TIMES: Meet requirements specified in latest version of the ASCO / CAP Guidelines, unless otherwise specified in the gross description. COMMENT(S): Test types for ER, GA and Her2: All FDA cleared, Vendor: [employer]. Primary antibody clones: ER: SP1, GA:1E2, Her2:4B5; Detection system: Ultraview If specimens were decalcified, loss of immunoreactivity may occur; negative results should be interpreted with caution. Isolated GA positivity (in the absence of ER staining) at low levels is not a reproducible result, could be an artifact, and may not be clinically significant. Invasive carcinomas with 1 to 10% of cells staining for ER (not PgR) are reported as Low Positive and the following comment is applicable: There are limited data on the overall benefit of endocrine therapies for patients with low level (1-10%) ER expression but they currently suggest possible benefit, so patients are considered eligible for endocrine treatment. There are data that suggest invasive cancers with these results are heterogeneous in both behavior and biology and often have gene expression profiles more similar to ER negative cancers. ASSEMBLER DIELECTRIC HEATER TUMOR BLOCK(S): A COMMENT: [facility] [id number] CLINICAL INFORMATION: UNSPECIFIED LUMP IN LEFT BREAST, SUBAREOLAR; HIGH SUSPICION MASS SPECIMEN: A LEFT BREAST MASS 12:00 POSITION GROSS DESCRIPTION: All parts labelled with patient name and [id number] Received in formalin labelled left breast 12:00 Are 7 cylindrical breast cores ranging from 0.3 to 1.5 cm. Specimen removed from patient @1346. Placed in Formalin Fixative @1346. Cold Ischemia time 1 minute. Pathology Reports Accession: Collected Date/Time: Received Date/Time: Pathologist: [id number] 02/21/2025 13:46 EDT 02/22/2025 09:06 EDT NERY HOLLINS MD GROSS DESCRIPTION: Total time in formalin (in processor) 1 hrs. Total Time in Formalin Fixative 37 hrs. TS-1 Fernando Mcnally, Pathologists' Thermograph Operator (ASCP) Performed by FERNANDO MCNALLY MICROSCOPIC DESCRIPTION: The microscopic examination is performed, except in the case of Gross Only. Verified by Pathology Report verified by [facility] NERY HOLLINS Sign out Date: 02/25/2025 14:56 Performing Lab: [facility], [address] [place] [address] Pathology Dept Disclaimer If ancillary studies were utilized, the following Laboratory Developed Test (LDT) disclaimer will apply: Under CLIA requirements, [facility] is qualified to perform high complexity testing. For all ancillary stains, positive and negative controls stain appropriately. Performance characteristics of immunohistochemical and chromogenic in-situ hybridization tests have been determined by [facility]. These tests are used for clinical purposes, They should not be regarded as investigational or for research. Normal [facility] LT MAMM CLIP PLACEMENTon LT MAMM CLIP PLACEMENT [place] [address] Patient: YEMI SALEH Phone#: : 1970 Age: 54 Gender: M Pt. Type: Out Account: [id number] Location: Ordering: LAKESHA CHOWDARY Exam Date: 02/21/2025/14:18 Family Phys: Charge Code: [id number] Physician: [place] Order #: [id number] Dose#: PROCEDURE: LEFT MAMMOGRAM CLIP PLACEMENT COMPARISON: [facility], , 3D BILAT DIAGNOSTIC, 01/21/2025, 9:24. INDICATIONS: Clip placement. FINDINGS: LEFT BREAST: A metallic marker is present in the retroareolar breast. CONCLUSION: Postprocedure mammogram for biopsy marker placement PLEASE NOTE: A NORMAL MAMMOGRAM DOES NOT EXCLUDE THE POSSIBILITY OF BREAST CANCER. A CLINICALLY SUSPICIOUS PALPABLE LUMP SHOULD BE BIOPSIED. THIS FACILITY UTILIZES A REMINDER SYSTEM TO ENSURE THAT ALL PATIENTS RECEIVE REMINDER LETTERS FOR APPOINTMENTS. THIS INCLUDES REMINDERS FOR ROUTINE MAMMOGRAMS, DIAGNOSITC MAMMOGRAMS, OR OTHER BREAST IMAGING INTERVENTIONS WHEN APPROPRIATE. THIS PATIENT WILL BE PLACED IN THE APPROPRIATE REMINDER SYSTEM. Dictated by: Susie Martinez MD on 02/21/2025 at 14:53 Approved by: Susie Martinez MD on 02/21/2025 at 14:54 Normal [facility] US CORE BX BREAST LEFT 1ST L ESIONon 02-21-2025 US CORE BX BREAST LEFT 1ST LESION [place] [address] Patient: YEMI SALEH Phone#: : 1970 Age: 54 Gender: M Pt. Type: Out Account: [id number] Location: Ordering: LAKESHA CHOWDARY Exam Date: 02/21/2025/12:51 Family Phys: Charge Code: [id number] Physician: [place] Order #: [id number] Dose#: This report includes an Addendum and supersedes previous reports for this exam. PROCEDURE: PERCUTANEOUS LT BREAST ULTRASOUND GUIDED BIOPSY COMPARISON: None. INDICATIONS: Left breast mass DESCRIPTION: The risks and benefits were explained to the patient. Informed consent was obtained. Using ultrasound the lesion was localized. The skin was marked. The skin was prepped and draped in the usual sterile fashion. An ultrasound-guided biopsy was performed in the usual sterile manner. FINDINGS: SPECIMEN #, LOCATION: Left breast retroareolar lesion measuring 1.9 x 1.8 x 2.1 cm. Five passes were performed. BIOPSY NEEDLE: 12 gauge Achieve core biopsy needle. MARKERS(S) PLACED: A single metallic marker was placed in the appropriate targeted location. MEDICATION: 2% lidocaine with epinephrine administered locally. 2% lidocaine administered superficially. COMPLICATIONS: None. PATHOLOGY LAB: Specimen submitted to pathology. CONCLUSION: Uneventful ultrasound-guided breast biopsy. The patient was instructed to obtain follow up care and biopsy results from the referring physician. An addendum to this report will be provided with radiological-pathological correlation after the pathology results are available. Dictated by: Susie Martinez MD on 02/21/2025 at 14:51 Approved by: Susie Martinez MD on 02/21/2025 at 14:52 ADDENDUM: The pathology report is now available and shows malignancy (invasive grade 2 ductal carcinoma) concordant with the imaging findings. Continued Report - Page 2 of 2 Patient: YEMI SALEH Phone#: : 1970 Age: 54 Gender: M Pt. Type: Out Account: [id number] Location: Ordering: LAKESHA CHOWDARY Exam Date: 02/21/2025/12:51 Family Phys: Charge Code: [id number] Physician: [place] Order #: [id number] Dose#: Dictated by: Susie Martinez MD on 03/05/2025 at 8:31 Approved by: Susie Martinez MD on 03/05/2025 at 8:32 Normal [facility] 3D MAMM BILAT DIAGNOSTICon 0 01-21-2025 3D MAMM BILAT DIAGNOSTIC [place] [address] Patient: YEMI SALEH Phone#: : 1970 Age: 54 Gender: M Pt. Type: Out Account: [id number] Location: Ordering: [facility] Exam Date: 01/21/2025/9:24 Family Phys: Charge Code: [id number] Physician: [place] Order #: [id number] Dose#: PROCEDURE: BILATERAL DIAGNOSTIC BREAST TOMOSYNTHESIS MAMMOGRAM WITH CAD COMPARISON: None. INDICATIONS: Left breast mass. BREAST COMPOSITION: Almost entirely fatty. FINDINGS: DIAGNOSTIC CATEGORY 0--INCOMPLETE: NEED ADDITIONAL IMAGING EVALUATION. RIGHT BREAST: No significant suspicious finding. LEFT BREAST: MASS (finding with convex borders visible on two orthogonal views), characterized by microlobulated suspicious morphology, subareolar depth, 12 o'clock position, and 16 x 14 x 14 mm size. Additional evaluation by ultrasound will be performed. RECOMMENDATIONS: ULTRASOUND: LEFT BREAST --We will call the patient back for an ultrasound and provide an additional report. PLEASE NOTE: A NORMAL MAMMOGRAM DOES NOT EXCLUDE THE POSSIBILITY OF BREAST CANCER. A CLINICALLY SUSPICIOUS PALPABLE LUMP SHOULD BE BIOPSIED. THIS FACILITY UTILIZES A REMINDER SYSTEM TO ENSURE THAT ALL PATIENTS RECEIVE REMINDER LETTERS FOR APPOINTMENTS. THIS INCLUDES REMINDERS FOR ROUTINE MAMMOGRAMS, DIAGNOSITC MAMMOGRAMS, OR OTHER BREAST IMAGING INTERVENTIONS WHEN APPROPRIATE. THIS PATIENT WILL BE PLACED IN THE APPROPRIATE REMINDER SYSTEM. Dictated by: Radha Gonzalez MD on 01/21/2025 at 11:04 Approved by: Radha Gonzalez MD on 01/21/2025 at 11:07 Normal [facility] US BREAST LT UNILATERAL COMP LETEon 01-21-2025 US BREAST LT UNILATERAL [place] [address] Patient: YEMI SALEH Phone#: : 1970 Age: 54 Gender: M Pt. Type: Out Account: [id number] Location: Ordering: [facility] Exam Date: 01/21/2025/9:01 Family Phys: Charge Code: [id number] Physician: [place] Order #: [id number] Dose#: PROCEDURE: ULTRASOUND BREAST LT COMPARISON: None. INDICATIONS: Left breast mass. TECHNIQUE: Breast ultrasound was performed, with evaluation focusing on all four quadrants. FINDINGS: DIAGNOSTIC CATEGORY 4c-HIGH SUSPICION, BUT NOT CLASSIC FOR MALIGNANCY; SUSPICIOUS LEFT BREAST: Solid suspicious-appearing lesion, hypoechoic echotexture, subareolar depth, 12 o'clock position, and 17 x 20 x 17 mm size. The finding correlates with the mammogram finding. RECOMMENDATIONS: ULTRASOUND-GUIDED CORE BIOPSY: LEFT BREAST PLEASE NOTE: A NORMAL MAMMOGRAM DOES NOT EXCLUDE THE POSSIBILITY OF BREAST CANCER. A CLINICALLY SUSPICIOUS PALPABLE LUMP SHOULD BE BIOPSIED. Dictated by: Radha Gonzalez MD on 01/21/2025 at 11:14 Approved by: Radha Gonzalez MD on 01/21/2025 at 11:15 Normal [facility] COMPREHENSIVE METABOLIC PANE [place] 01-19-2025 Albumin [Mass/Vol] 4.9 g/dL Normal 3.6-5.1 [facility] Comment on above: Performed By: #### 1 0231, 5363, 7600 #### [facility] of [place] [address] [employer] Grower: Phi Fernandes MD Albumin/Globulin [Mass ratio] 1.9 {ratio} Normal 1.0-2.5 [facility] Comment on above: Performed By: #### 1 0231, 5363, 7600 #### [facility] of [address], [address] [place] [address] [employer]drop[employer] Grower: Phi Fernandes MD ALP [Catalytic activity/Vol] 67 U/L Normal 35-144 [facility] Comment on above: Performed By: #### 1 0231, 5363, 7600 #### [facility] of [place] [address] [employer] Grower: Phi Fernandes MD ALT [Catalytic activity/Vol] 34 U/L Normal 9-46 [facility] Comment on above: Performed By: #### 1 0231, 5363, 7600 #### [facility] of [place] [address] [employer] Grower: Phi Fernandes MD AST [Catalytic activity/Vol] 18 U/L Normal 10-35 [facility] Comment on above: Performed By: #### 1 0231, 5363, 7600 #### [facility] of [place] [address] [employer] Grower: Phi Fernandes MD Bilirubin [Mass/Vol] 0.6 mg/dL Normal 0.2-1.2 [facility] Comment on above: Performed By: #### 1 0231, 5363, 7600 #### [facility] of [place] [address] [employer] Grower: Phi Fernandes MD BUN/CREATININE RATIO SEE NOTE: Normal 6-22 [facility] Comment on above: Result Comment: Not Reported: BUN and Creatinine are within reference range. Performed By: #### 1 023, 5363, 7600 #### [facility] of [address], [address] [place] [address] [employer] Grower: Phi Fernandes MD Calcium [Mass/Vol] 9.9 mg/dL Normal 8.6-10.3 [facility] Comment on above: Performed By: #### 1 023, 5363, 7600 #### [facility] of [address], [address] [place] [address] [employer]drop[employer] Grower: Phi Fernandes MD Chloride [Moles/Vol] 102 mmol/L Normal 98-110 [facility] Comment on above: Performed By: #### 1 230, 5363, 7600 #### [facility] of [place] [address] [employer] Grower: Phi Fernandes MD CO2 [Moles/Vol] 24 mmol/L Normal 20-32 [facility] Comment on above: Performed By: #### 1 230, 5363, 7600 #### [facility] of [place] [address] [employer] Grower: Phi Fernandes MD Creatinine [Mass/Vol] 1.13 mg/dL Normal 0.70-1.[address] [facility] Comment on above: Performed By: #### 1 230, 5363, 7600 #### [facility] of [place] [address] [employer]er: Phi Fernandes MD GFR/1.73 sq M.predicted among non-blacks MDRD (S/P/Bld) [Vol rate/Area] 77 mL/min/{1.73_m2} Normal > OR = 60 [facility] Comment on above: Performed By: #### 1 023, 5363, 7600 #### [facility] of [place] [address] [employer] Grower: Phi Fernandes MD Globulin (S) [Mass/Vol] 2.6 g/dL Normal 1.9-3.7 [facility] Comment on above: Performed By: #### 1 023, 5363, 7600 #### [facility] [place] [address] [employer] Grower: Phi Fernandes MD Glucose [Mass/Vol] 147 mg/dL High 65-99 [facility] Comment on above: Result Comment: Fasting reference interval For someone without known diabetes, a glucose value >125 mg/dL indicates that they may have diabetes and this should be confirmed with a follow-up test. Performed By: #### 1 023, 5363, 7600 #### [facility] [address], [address] [place] [address] [employer] Grower: Phi Fernandes MD Potassium [Moles/Vol] 4.6 mmol/L Normal 3.5-5.[address] [facility] Comment on above: Performed By: #### 1 230, 5363, 7600 #### [facility] [place] [address] [employer] Grower: Phi Fernandes MD Protein [Mass/Vol] 7.5 g/dL Normal 6.1-8.1 [facility] Comment on above: Performed By: #### 1 230, 5363, 7600 #### [facility] [place] [address] [employer] Grower: Phi Fernandes MD Sodium [Moles/Vol] 137 mmol/L Normal 135-146 [facility] Comment on above: Performed By: #### 1 230, 5363, 7600 #### [facility] of [place] [address] [employer] Grower: Phi Fernandes MD Urea nitrogen [Mass/Vol] 17 mg/dL Normal 7-25 [facility] Comment on above: Performed By: #### 1 023, 5363, 7600 #### [facility] of [place] [address] [employer] Grower: Phi Fernandes MD LIPID PANEL, [facility] Cholesterol [Mass/Vol] 132 mg/dL Normal <200 [facility] Comment on above: Performed By: #### 1 0231, 5363, 7600 #### [facility] [address], [address] [place] [address] [employer]drop[employer] Grower: Phi Fernandes MD Cholesterol in HDL [Mass/Vol] 45 mg/dL Normal > OR = 40 [facility] Comment on above: Performed By: #### 1 0231, 5363, 7600 #### [facility] [address], [address] [place] [address] [employer]drop[employer] Grower: Phi Fernandes MD Cholesterol in LDL [Mass/Vol] 67 mg/dL Normal [facility] Comment on above: Result Comment: Refe rence range: <100 Desirable range <100 mg/dL for primary prevention; <70 mg/dL for patients with CHD or diabetic patients with > or = 2 CHD risk factors. LDL-C is now calculated using the Skyler calculation, which is a validated novel method providing better accuracy than the Friedewald equation in the estimation of LDL-C. Bolivar GOYAL et al. MICHELLE. 2013;310(19): 3261-3165 (http://education.[employer].Global Locate/faq/JDN286) Performed By: #### 1 023, 5363, 7600 #### [facility] [place] [address] [employer] Grower: Phi Fernandes MD Cholesterol.total/Chol esterol in HDL [Mass ratio] 2.9 {ratio} Normal <5.0 [facility] Comment on above: Performed By: #### 1 023, 5363, 7600 #### [facility] [address], [address] [place] [address] [employer]dropon[employer] Grower: Phi Fernandes MD NON HDL CHOLESTEROL 87 mg/dL (calc) Normal <130 [facility] Comment on above: Result Comment: For patients with diabetes plus 1 major ASCVD risk factor, treating to a non-HDL-C goal of <100 mg/dL (LDL-C of <70 mg/dL) is considered a therapeutic option. Performed By: #### 1 023, 5363, 7600 #### [facility] [address], [address] [place] [address] [employer]drop[employer] Grower: Phi Fernandes MD Triglyceride [Mass/Vol] 123 mg/dL Normal <150 [facility] Comment on above: Performed By: #### 1 0231, 5314, 7600 #### [facility] [address], [address] [place] [address] [employer]drop[employer] Grower: Phi Fernandes MD PSA, TOTALon 01-19-2025 PSA, TOTAL 0.41 ng/mL Normal < OR = 4.00 [facility] Comment on above: Result Comment: The total PSA value from this assay system is standardized against the WHO standard. The test result will be approximately 20% lower when compared to the equimolar-standardized total PSA (Sofiya [place]). Comparison of serial PSA results should be interpreted with this fact in mind. This test was performed using the Siemens chemiluminescent method. Values obtained from different assay methods cannot be used interchangeably. PSA levels, regardless of value, should not be interpreted as absolute evidence of the presence or absence of disease. Performed By: #### 1 0231, 5360, 4235 #### [facility] [address], [address] [place], [place] [id number] [employer] Grower: Phi Fernandes MD Laboratory - Chemistry and C hemistry - challengeon 01-18-2025 Albumin [Mass/Vol] 4.9 g/dL Normal 3.6 - 5.1 g/dL [facility] [employer] Albumin/Globulin [Mass ratio] 1.9 {ratio} Normal 1.0 - 2.5 [employer] ALP [Catalytic activity/Vol] 67 U/L Normal 35 - 144 U/L [employer] ALT [Catalytic activity/Vol] 34 U/L Normal 9 - 46 U/L [employer] AST [Catalytic activity/Vol] 18 U/L Normal 10 - 35 U/L [employer] Bilirubin [Mass/Vol] 0.6 mg/dL Normal 0.2 - 1 .2 mg/dL [facility], [facility].; [facility], [facility]. Calcium [Mass/Vol] 9.9 mg/dL Normal 8.6 - 10. 3 mg/dL [facility], [facility].; [facility], [facility]. Chloride [Moles/Vol] 102 mmol/L Normal 98 - 11 0 mmol/L [facility], [facility].; [facility], [facility]. Cholesterol [Mass/Vol] 132 mg/dL Normal [facility], [facility] Cholesterol in HDL [Mass/Vol] 45 mg/dL Normal [facility], [facility].; [facility], [facility] Cholesterol in LDL [Mass/Vol] 67 mg/dL Normal [facility], [facility].; [facility], [facility]. CO2 [Moles/Vol] 24 mmol/L Normal 20 - 32 mmol/L [facility], [facility].; [facility], [facility]. Creatinine [Mass/Vol] 1.13 mg/dL Normal 0.70 - 1.30 mg/dL [facility], [facility].; [facility], [facility]. GFR/1.73 sq M.predicted among non-blacks MDRD (S/P/Bld) [Vol rate/Area] 77 mL/min/{1.73_m2} Normal [facility], [facility].; [facility], [facility]. Glucose [Mass/Vol] 147 mg/dL Abnormal 65 - 99 mg/dL [facility], [facility].; [facility], [facility]. Potassium [Moles/Vol] 4.6 mmol/L Normal 3.5 - 5.3 mmol/L [facility], [facility].; [facility], [facility]. Protein [Mass/Vol] 7.5 g/dL Normal 6.1 - 8.1 g/dL [facility], [facility].; [facility], [facility]. Sodium [Moles/Vol] 137 mmol/L Normal 135 - 146 mmol/L [facility], [facility].; [facility] Triglyceride [Mass/Vol] 123 mg/dL Normal [facility], [facility].; [facility], [facility]. Urea nitrogen [Mass/Vol] 17 mg/dL Normal 7 - 25 mg/dL [facility], [facility].; [employer]. Laboratory - Hematology and Cell countson 01-18-2025 HbA1c (Bld) [Mass fraction] 8.3 % Abnormal 4.6 - 7.1 % [employer]. No Panel Informationon 01-18 BUN/CREATININE RATIO SEE NOTE: Normal 6 - 22 [employer]. CHOL/HDLC RATIO 2.9 Normal [employer]. GLOBULIN 2.6 Normal 1.9 - 3.7 [employer]. NON HDL CHOLESTEROL 87 Normal [facility].; [employer]. PSA, TOTAL 0.41 ng/mL Normal [employer]. X-ray reportOrdered By: Terrence Shipley on 08-13-2024 Study report [facility] [address] [place] [address] XRay Report Signed Patient: YEMI SALEH MR#: [id number] : 1970 Acct:[id number] Age/Sex: 53 / M Admit Date: 08/13 Loc: [facility] Attending Dr: Lakesha Brdaford MD Ordering Physician: Lakesha Bradford MD Date of Service: 08/13/24 Procedure(s): XR abdomen 1V Accession Number(s): [id number] cc: Lakesha Bradford MD HISTORY: Follow-up kidney stones. TECHNIQUE: Abdomen, single view. FINDINGS: There is a 4 mm calcification in the right pola pelvis which when correlated with CT of 06/06/2024 may be within the seminal vesicle rather than along the ureter. No stones overlie the kidneys. Suspect phleboliths in the pelvis. Normal bowel gas pattern. Impression Abdomen, single view: 1. 4 mm calcification in the right pola pelvis which when correlated with CT of06/06/2024 may be within the seminal vesicle rather than along the ureter. 2. No stones overlie the kidneys. Dictated By: Obdulio Shipley/ 121 Signed By: Obdulio Shipley MD 08/13/241214 [employer]: BRITNEY 08/13/2412[address] [facility] Work Phone: XR abdomen 1Von 08-13-2024 XR abdomen 1V [facility] [address] [place] [address] XRay Report Signed Patient: YEMI SALEH MR#: [id number] : 1970 Acct:[id number] Age/Sex: 53 / M Admit Date: 08/13/24 Loc: [facility] Attending Dr: Lakesha Bradford MD Ordering Physician: Lakesha Bradford MD Date of Service: 08/13/24 Procedure(s): XR abdomen 1V Accession Number(s): [id number] cc: Lakesha Bradford MD HISTORY: Follow-up kidney stones. TECHNIQUE: Abdomen, single view. FINDINGS: There is a 4 mm calcification in the right pola pelvis which when correlated with CT of 06/06/2024 may be within the seminal vesicle rather than along the ureter. No stones overlie the kidneys. Suspect phleboliths in the pelvis. Normal bowel gas pattern. Impression Abdomen, single view: 1. 4 mm calcification in the right pola pelvis which when correlated with CT of 06/06/2024 may be within the seminal vesicle rather than along the ureter. 2. No stones overlie the kidneys. Dictated By: Obdulio Shipley MD DD/ 14 Signed By: Obdulio Shipley MD 08/13/241214 [employer]: BRITNEY 08/13/2412[address] [facility] ([place] Calculi, Urinary w/Photoon 0 07-03-2024 2,8 Dihydroxyadenine TNP Normal . [facility] ([place] Comment on above: Order Comment: COORD INATES WITH [id number] Performed By: #### S TONE #### [facility] [place] [address] [place] [address] Ammonium urate (Stone) [Mass fraction] TNP Normal . [facility] ([place] Comment on above: Order Comment: COORD INATES WITH [id number] Performed By: #### S TONE #### [facility] [place] [address] [place] [address] Bilirubin Infrared spectroscopy (Stone) [Mass fraction] TNP Normal . [facility] ([place] Comment on above: Order Comment: COORD INATES WITH [id number] Performed By: #### S TONE #### [facility] [place] [address] [place] [address] Blood.dried (Stone) [Mass fraction] TNP Normal . [facility] ([place] Comment on above: Order Comment: COORD INATES WITH [id number] Performed By: #### S TONE #### [facility] [place] [address] [place] [address] Calcium bilirubinate (Stone) [Mass fraction] TNP Normal . [facility] ([place] Comment on above: Order Comment: COORD INATES WITH [id number] Performed By: #### S TONE #### [facility] [address] [address] Calcium carbonate (Stone) [Mass fraction] TNP Normal . [facility] ([place] Comment on above: Order Comment: COORD INATES WITH [id number] Performed By: #### S TONE #### [facility] [place] [id number] [place] [address] Calcium hydrogen phosphate dihydrate (Stone) [Mass fraction] TNP Normal . [facility] ([place] Comment on above: Order Comment: COORD INATES WITH [id number] Performed By: #### S TONE #### [facility] [place] [address] [place] [address] Calcium oxalate dihydrate Infrared spectroscopy (Stone) [Mass fraction] 30 % Normal . [facility] ([place] Comment on above: Order Comment: COORD INATES WITH [id number] Performed By: #### S TONE #### [facility] [place] [address] [place] [address] Calcium oxalate monohydrate crystals Infrared spectroscopy Ql (Stone) 70 % Normal . [facility] ([place] Comment on above: Order Comment: COORD INATES WITH [id number] Performed By: #### S TONE #### [facility] [place] [address] [place] [address] Calcium phosphate (Stone) [Mass fraction] TNP Normal . [facility] ([place] Comment on above: Order Comment: COORD INATES WITH [id number] Performed By: #### S TONE #### [facility] [place] [address] [place] [address] Calcium Ql (Stone) TNP Normal . [facility] ([place] Comment on above: Order Comment: COORD INATES WITH [id number] Result Comment: TNP Performed By: #### S TONE #### [facility] [place] [address] [place] [address] Calculus analysis [Interp] Comment Normal . [facility] ([place] Comment on above: Order Comment: COORD INATES WITH [id number] Result Comment: Bárbara tarango questions regarding Calculi Analysis contact [facility] at: [phone]. Performed By: #### S TONE #### [facility] [place] [address] [place] [address] Calculus analysis Laz [Interp] Comment Normal . [facility] ([place] Comment on above: Order Comment: COORD INATES WITH [id number] Result Comment: Calc jim report will follow via computer, mail or baking powder mixer delivery. Comment This test was developed and its performance characteristics determined by [facility]. It has not been cleared or approved by the Food and Drug Administration. Performed at: [address] [id number] Director Apparel: Carlos Ponce PhD, Phone: [phone] Performed By: #### S TONE #### [facility]3] [address] [place] [address] Calculus analysis with calculus photography [Interp] Comment Normal . [facility] ([place] Comment on above: Order Comment: COORD INATES WITH [id number] Result Comment: Phot ograph will follow under a separate cover Performed By: #### S TONE #### [facility] [place] [address] [place] [address] Cellular material Est (Stone) [Mass/Mass] TNP Normal . [facility] ([place] Comment on above: Order Comment: COORD INATES WITH [id number] Performed By: #### S TONE #### [facility] [place] [address] [place] [address] Cholesterol (Stone) [Mass fraction] TNP Normal . [facility] ([place] Comment on above: Order Comment: COORD INATES WITH [id number] Performed By: #### S TONE #### [facility] [place] [address] [place] [address] Color (Stone) Brown Normal . [facility] ([place] Comment on above: Order Comment: COORD INATES WITH [id number] Performed By: #### S TONE #### [facility] [place] [address] [place] [address] Composition Nom (Stone) Comment Normal . [facility] ([place] Comment on above: Order Comment: COORD INATES WITH [id number] Result Comment: Perc entage (Represents the % composition) Performed By: #### S TONE #### [facility] [place] [address] [place] [address] Cystine (Stone) [Mass fraction] TNP Normal . [facility] ([place] Comment on above: Order Comment: COORD INATES WITH [id number] Performed By: #### S TONE #### [facility]3] [address] [place] [address] Drug or Metabolite TNP Normal . [facility] ([place] Comment on above: Order Comment: COORD INATES WITH [id number] Performed By: #### S TONE #### [facility] [place] [address] [place] [address] Newberyite (Stone) [Mass fraction] TNP Normal . [facility] ([place] Comment on above: Order Comment: COORD INATES WITH [id number] Performed By: #### S TONE #### [facility] [place] [address] [place] [address] Size (Stone) [Entitic vol] 3x2 Normal . [facility] ([place] Comment on above: Order Comment: COORD INATES WITH [id number] Result Comment: Mult iple pieces received. Dimensions of the largest piece reported. Performed By: #### S TONE #### [facility] [place] [address] [place] [address] Sodium urate Infrared spectroscopy (Stone) [Mass fraction] TNP Normal . [facility] ([place] Comment on above: Order Comment: COORD INATES WITH [id number] Performed By: #### S TONE #### [facility] [place] [address] [place] [address] Specimen source Nom (Unsp spec) Ureter Normal . [facility] ([place] Comment on above: Order Comment: COORD INATES WITH [id number] Performed By: #### S TONE #### [facility] [address] [place] [address] Test performance information Laz (Unsp spec) TNP Normal . [facility] ([place] Comment on above: Order Comment: COORD INATES WITH [id number] Performed By: #### S TONE #### [facility] [place] [address] [place] [address] Triamterene (Stone) [Mass fraction] TNP Normal . [facility] ([place] Comment on above: Order Comment: COORD INATES WITH [id number] Performed By: #### S TONE #### [facility]3] [address] [place] [address] Triple phosphate crystals LM Ql (Urine sed) TNP Normal . [facility] ([place] Comment on above: Order Comment: COORD INATES WITH [id number] Performed By: #### S TONE #### [facility]3] [address] [place] [address] Urate dihydrate (Stone) [Mass fraction] TNP Normal . [facility] ([place] Comment on above: Order Comment: COORD INATES WITH [id number] Performed By: #### S TONE #### [facility]3] [address] [place] [address] Urate Ql (Stone) TNP Normal . [facility] ([place] Comment on above: Order Comment: COORD INATES WITH [id number] Performed By: #### S TONE #### [facility] [place] [address] [place] [address] Weight (Stone) 63.0 mg Normal . [facility] ([place] Comment on above: Order Comment: COORD INATES WITH [id number] Performed By: #### S TONE #### [facility] [place] [address] [place] [address] Xanthine (Stone) [Mass fraction] TNP Normal . [facility] ([place] Comment on above: Order Comment: COORD INATES WITH [id number] Performed By: #### S TONE #### [facility] [place] [address] [place] [address] X-ray reportOrdered By: Terrence Shipley on 07-02-2024 Study report [facility] [address] [place] [address] XRay Report Signed Patient: YEMI SALEH MR#: [id number] : 1970 Acct:[id number] Age/Sex: 53 / M Admit Date: 07/02 Loc: [facility] Attending Dr: Lakesha Bradford MD Ordering Physician: Lakesah Bradford MD Date of Service: 07/02/24 Procedure(s): XR abdomen 1V Accession Number(s): [id number] cc: Lakesha Bradford MD HISTORY: Ureteral stone. TECHNIQUE: Abdomen, single view. FINDINGS: There is a new right ureteral stent in place with fragmented appearing 4 mm stone along the distal aspect of the stent at the ureteral vesicle junction having migrated from 06/18/2024. No left-sided stones. Normal bowel gas pattern. Impression Abdomen, single view: 1. New right ureteral stent in place with fragmented appearing 4 mm stone alongthe distal aspect of the stent at the ureteral vesicle junction having migrated from 06/18/2024. Dictated By: Obdulio Shipley/ 1251 Signed By: Obdulio Shipley MD 07/02/24 1251 [employer]: BRITNEY 07/02/[address] [facility] Work Phone: XR abdomen 1Von 07-02-2024 XR abdomen 1V [facility] [address] [place] [address] XRay Report Signed Patient: YEMI SALEH MR#: [id number] : 1970 Acct:[id number] Age/Sex: 53 / M Admit Date: 07/02/24 Loc: ANC Attending Dr: Lakesha Bradford MD Ordering Physician: Lakesha Bradford MD Date of Service: 07/02/24 Procedure(s): XR abdomen 1V Accession Number(s): [id number] cc: Lakesha Bradford MD HISTORY: Ureteral stone. TECHNIQUE: Abdomen, single view. FINDINGS: There is a new right ureteral stent in place with fragmented appearing 4 mm stone along the distal aspect of the stent at the ureteral vesicle junction having migrated from 06/18/2024. No left-sided stones. Normal bowel gas pattern. Impression Abdomen, single view: 1. New right ureteral stent in place with fragmented appearing 4 mm stone along the distal aspect of the stent at the ureteral vesicle junction having migrated from 06/18/2024. Dictated By: Obdulio Shipley MD DD/ 1251 Signed By: Obdulio Shipley MD 07/02/24 1251 [employer]: BRITNEY 07/02/[address] [facility] ([place] Ammonium urate/total calculu s mass ratioOrdered By: Lakesha Bradford on 06-20-2024 Ammonium urate (Stone) [Mass fraction] Ammonium urate/total calculus mass ratio [facility] Comment on above: Test not performed Brushite/total calculus mass ratioOrdered By: Lakesha Bradford on 06-20-2024 Calcium hydrogen phosphate dihydrate (Stone) [Mass fraction] Brushite/total calculus mass ratio [facility] Comment on above: Test not performed Calcium carbonate/total calc ulus mass ratioOrdered By: Lakesha Bradford on 06-20-2024 Calcium carbonate (Stone) [Mass fraction] Calculus calcium carbonate measurement [facility] Comment on above: Test not performed Calcium detection in calculu sOrdered By: Lakesha Bradford on 06-20-2024 Calcium Ql (Stone) Calcium detection in calculus [facility] Comment on above: Test not performed Calcium oxalate dihydrate/to salma calculus mass ratio by infrared spectroscopyOrdered By: Lakesha Bradford on 06-20-2024 Calcium oxalate dihydrate Infrared spectroscopy (Stone) [Mass fraction] Calcium oxalate dihydrate/total calculus mass ratio by infrared spectroscopy . [facility] Calcium oxalate monohydrate crystal detectionOrdered By: Lakesha Bradford on 06-20-2024 Calcium oxalate monohydrate crystals Infrared spectroscopy Ql (Stone) Calcium oxalate monohydrate crystal detection . [facility] Calcium phosphate measuremen tOrdered By: Lakesha Bradford on 06-20-2024 Calcium phosphate (Stone) [Mass fraction] Calcium phosphate measurement [facility] Comment on above: Test not performed Calculus analysis interpreta tion in stoneOrdered By: Lakesha Bradford on 06-20-2024 Calculus analysis [Interp] Calculus analysis [Interpretation] in Stone . [facility] Comment on above: Test not performed Calculus received we t. Wet calculi must be dried beforeanalysis, which delays reporting of results. Leaving calculiwet (such as water, saline, blood, urine) may lead tochanges in composition. Physician questions regarding Calculi Analysis [facility] at: [phone]. Calculus analysis interpreta tion in stone (narrative result)Ordered By: Lakesha Bradford on 06-20-2024 Calculus analysis Laz [Interp] Calculus analysis interpretation in stone (narrative result) . [facility] Comment on above: Calculi report will follow via computer, mail or courierdelivery. This test was develo ped and its performance characteristicsdetermined by [employer]. It has not been cleared or approvedby the Food and Drug Administration.Performed at: [address] [id number] Director: Carlos Ponce PhD, Phone: [phone] Calculus calcium bilirubinat e measurementOrdered By: Lakesha Bradford on 06-20-2024 Calcium bilirubinate (Stone) [Mass fraction] Calcium bilirubinate/Total in Stone [facility] Comment on above: Test not performed Calculus cholesterol measure mentOrdered By: Lakesha Bradford on 06-20-2024 Cholesterol (Stone) [Mass fraction] Cholesterol/Total in Stone [facility] Comment on above: Test not performed Calculus newberyite measurem entOrdered By: Lakesha Bradford on 06-20-2024 Newberyite (Stone) [Mass fraction] Newberyite/Total in Stone [facility] Comment on above: Test not performed Cystine/total calculus mass ratioOrdered By: Lakesha Bradford on 06-20-2024 Cystine (Stone) [Mass fraction] Cystine/total calculus mass ratio [facility] Comment on above: Test not performed Determination of calculus co mpositionOrdered By: Lakesha Bradford on 06-20-2024 Composition Nom (Stone) Determination of calculus composition . [facility] Comment on above: Percentage (Represen ts the % composition) Determination of color of ca lculusOrdered By: Lakesha Bradford on 06-20-2024 Color (Stone) Determination of col or of calculus . [facility] Estimation of cellular mater ial in calculus (mass/mass)Ordered By: Lakesha Bradford on 06-20-2024 Cellular material Est (Stone) [Mass/Mass] Estimation of cellular material in calculus (mass/mass) [facility] Comment on above: Test not performed Glucose Glucometer (BldC) [M ass/Vol]on 06-20-2024 Glucose [Mass/Vol] 168 mg/dL Normal 70-[address] [facility] ([place] Comment on above: Performed By: #### 4 1653-7 #### [facility] [address] [place] [address] Glucose [Mass/Vol] 88 mg/dL Normal 70-[address] [facility] [place] Comment on above: Performed By: #### 4 1653-7 #### [facility] [address] [place] [address] Glucose Glucometer (BldC) [M ass/Vol]Ordered By: Lakesha Bradford on 06-20-2024 Glucose [Mass/Vol] Capillary whole bloo d glucose measurement by glucometer (mass/volume) -[address] [facility] IR urological procedureon IR urological procedure [facility] [address] [place] [address] Interventional Radiology Rpt Signed Patient: YEMI SALEH MR#: [id number] : 1970 Acct:[id number] Age/Sex: 53 / M Admit Date: 06/20/24 Loc: OR Attending Dr: Lakesha Bradford MD Ordering Physician: Lakesha Bradford MD Date of Service: 06/20/24 Procedure(s): IR urological procedure Accession Number(s): [id number] cc: Lakesha Bradford MD Image intensifying/fluoroscopy equipment was used in a procedure by Dr. Lakesha Bradford on 06/20/2024 from 12:50 to 13:15. Total fluoroscopy time was 3.48 minutes. No static images were archived and no radiologist review for interpretation was performed. This report is intended for documentation purposes only, related to the use of equipment, and does not reflect any medical evaluation or diagnosis. See operative report for details. Dictated By: Documentation, Rad DD/ 1453 Signed By: Documentation,Rad 06/20/24 145 [employer]: AC 06/20/[address] [facility] ([place] Identification of specimen s ourceOrdered By: Lakesha Bradford on 06-20-2024 Specimen source Nom (Unsp spec) Specimen source identified . [facility] Magnesium ammonium phosphate crystal detectionOrdered By: Lakesha Bradford on 06-20-2024 Triple phosphate crystals LM Ql (Urine sed) Magnesium ammonium phosphate crystal detection [facility] Comment on above: Test not performed Measurement of proportion of calculus composed of dried blood (mass/mass)Ordered By: Lakesha Bradford on 06-20-2024 Blood.dried (Stone) [Mass fraction] Measurement of proportion of calculus composed of dried blood (mass/mass) [facility] Comment on above: Test not performed Measurement of weight of sto neOrdered By: Lakesha Bradford on 06-20-2024 Weight (Stone) Measurement of weigh t of stone . [facility] No Panel InformationOrdered By: Gustavo Herrera on 06-20-[address] [facility] Other Phone: No Panel InformationOrdered By: Lakesha Bradford on 06-20-2024 Stone 2,8 Dihydroxyadenine TNP [facility] Comment on above: Test not performed Stone Drug or Metabolite [facility] Comment on above: Test not performed Size of stoneOrdered By: Reed Bradford on 06-20-2024 Size (Stone) [Entitic vol] Size of stone . [facility] Comment on above: Multiple pieces rece ived. Dimensions of the largest piecereported. Sodium urate/total calculus mass ratio by infrared spectroscopyOrdered By: Lakesha Bradford on 06-20-2024 Sodium urate Infrared spectroscopy (Stone) [Mass fraction] Sodium urate/Total in Stone by Infrared spectroscopy [facility] Comment on above: Test not performed Stone analysis with imageOrd ered By: Lakesha Bradford on 06-20-2024 Calculus analysis with calculus photography [Interp] Stone analysis with image . [facility] Comment on above: Photograph will foll ow under a separate cover Test performance information narrativeOrdered By: Lakesha Bradford on 06-20-2024 Test performance information Laz (Unsp spec) Test performance information narrative [facility] Comment on above: Test not performed Total bilirubin/total calcul us mass ratio by infrared spectroscopyOrdered By: Lakesha Bradford on 06-20-2024 Bilirubin Infrared spectroscopy (Stone) [Mass fraction] Total bilirubin/total calculus mass ratio by infrared spectroscopy [facility] Comment on above: Test not performed Triamterene measurement in c alculusOrdered By: Lakesha Bradford on 06-20-2024 Triamterene (Stone) [Mass fraction] Triamterene/Total in Stone [facility] Comment on above: Test not performed Uric acid detection in stone Ordered By: Lakesha Bradford on 06-20-2024 Urate Ql (Stone) Uric acid detection in stone [facility] Comment on above: Test not performed Uric acid dihydrate measurem ent in calculusOrdered By: Lakesha Bradford on 06-20-2024 Urate dihydrate (Stone) [Mass fraction] Uric acid dihydrate measurement in stone [facility] Comment on above: Test not performed Xanthine/total calculus mass ratioOrdered By: Lakesha Bradford on 06-20-2024 Xanthine (Stone) [Mass fraction] Xanthine/total calculus mass ratio [facility] Comment on above: Test not performed X-ray reportOrdered By: Terrence Shipley on 06-18-2024 Study report [facility] [address] [place], [place] [id number] XRay Report Signed Patient: YEMI SALEH MR#: [id number] : 1970 Acct:[id number] Age/Sex: 53 / M Admit Date: 06/18 Loc: ANC Attending Dr: Lakesha Bradford MD Ordering Physician: Lakesha Bradford MD Date of Service: 06/18/24 Procedure(s): XR abdomen 1V Accession Number(s): [id number] cc: Lakesha Bradford MD HISTORY: Obstructing stone. TECHNIQUE: Abdomen, single view. FINDINGS: There has been slight interval movement of 4 x 10 mm stone now in theright mid ureter at the L4 level from CT of 06/06/2024. Additional calcifications in the right pola pelvis are believed to be phleboliths. No stones overlie the kidneys. Normal bowel gas pattern. Impression Abdomen, single view: 1. Slight interval movement of 4 x 10 mm stone now in the right mid ureter at the L4 level from CT of 06/06/2024. 2. No stones overlie the kidneys. Dictated By: Obdulio Shipley MDDD/ 111 Signed By: Obdulio Shipley MD 06/18/24 111 [employer]: BRITNEY 06/18/[address] [facility] Work Phone: XR abdomen 1Von 06-18-2024 XR abdomen 1V [facility] [address] [place] [address] XRay Report Signed Patient: YEMI SALEH MR#: [id number] : 1970 Acct:[id number] Age/Sex: 53 / M Admit Date: 06/18/24 Loc: ANC Attending Dr: Lakesha Bradford MD Ordering Physician: Lakesha Bradford MD Date of Service: 06/18/24 Procedure(s): XR abdomen 1V Accession Number(s): [id number] cc: Lakesha Bradford MD HISTORY: Obstructing stone. TECHNIQUE: Abdomen, single view. FINDINGS: There has been slight interval movement of 4 x 10 mm stone now in the right mid ureter at the L4 level from CT of 06/06/2024. Additional calcifications in the right pola pelvis are believed to be phleboliths. No stones overlie the kidneys. Normal bowel gas pattern. Impression Abdomen, single view: 1. Slight interval movement of 4 x 10 mm stone now in the right mid ureter at the L4 level from CT of 06/06/2024. 2. No stones overlie the kidneys. Dictated By: Obdulio Shipley MD DD/ 111 Signed By: Obdulio Shipley MD 06/18/24 111 [employer]: BRITNEY 06/18/[address] [facility] ([place]) ALT (SGPT) ser/plasOrdered B y: Yang Ibanez on 06-06-2024 ALT [Catalytic activity/Vol] ALT (SGPT) ser/plas 7-[address] [facility] Alkaline phosphatase ser/britney sOrdered By: Yang Ibanez on 06-06-2024 ALP [Catalytic activity/Vol] Alkaline phosphatase [Enzymatic activity/volume] in Serum or Plasma 42-[address] [facility] Appearance urOrdered By: Pasquale Ibanez on 06-06-2024 Appearance (U) Appearance ur [facility] Automated lymphocyte countOr dered By: Yang Ibanez on 06-06-2024 Lymphocytes Auto (Unsp spec) [#/Vol] Absolute lymphocyte count 1.10-4.[address] [facility] Automated urine white blood cell countOrdered By: Yang Ibanez on 06-06-2024 WBC Auto (U) [#/Vol] Automated urine whi te blood cell count None Seen [facility] Basophils Auto (Bld) [#/Vol] Ordered By: Yang Ibanez on 06-06-2024 Basophils (Bld) [#/Vol] Automated basophil count 0.00-0.[address] [facility] Basophils/100 WBC Auto (Bld) Ordered By: Yang Ibanez on 06-06-2024 Basophils/100 WBC (Bld) Basophil % 0.0-1.[address] [facility] Blood hemoglobin measurement (mass/volume)Ordered By: Yang Ibanez on 06-06-2024 Hemoglobin (Bld) [Mass/Vol] Hemoglobin [Mass/volume] in Blood 13.5-16.[address] [facility] CBC W Auto Differential pane l (Bld)on 06-06-2024 Basophils (Bld) [#/Vol] 0.1 10*3/uL Normal 0.00-0.[address] [facility] [place] Comment on above: Performed By: #### 5 7021-8 #### [facility] [address] [place] [address] Basophils/100 WBC (Bld) 0.6 % Normal 0.0-1.[address] [facility] [place] Comment on above: Performed By: #### 5 7021-8 #### [facility] [address] [place] [address] Eosinophils (Bld) [#/Vol] 0.0 10*3/uL Normal 0.00-0.[address] [facility] ([place] Comment on above: Performed By: #### 5 7021-8 #### [facility] [address] [place] [address] Eosinophils/100 WBC (Bld) 0.2 % Normal 0.0-3.[address] [facility] ([place] Comment on above: Performed By: #### 5 7021-8 #### [address] [address] Erythrocyte distribution width (RBC) [Ratio] 13.4 % Normal 10.9-14.[address] [facility] [place] Comment on above: Performed By: #### 5 7021-8 #### [address] [address] Hematocrit (Bld) [Volume fraction] 45.0 % Normal 41.0-50.[address] [facility] [place] Comment on above: Performed By: #### 5 7021-8 #### [facility] [address] [place] [address] Hemoglobin (Bld) [Mass/Vol] 15.5 g/dL Normal 13.5-16.[address] [facility] [place] Comment on above: Performed By: #### 5 7021-8 #### [facility] [address] [place] [address] Lymphocytes Auto (Unsp spec) [#/Vol] 1.7 10*3/uL Normal 1.10-4.[address] [facility] [place] Comment on above: Performed By: #### 5 7021-8 #### [facility] [address] [place] [address] Lymphocytes/100 WBC (Bld) 11.5 % Low 24.0-44.[address] [facility] [place] Comment on above: Performed By: #### 5 7021-8 #### [facility] [address] [place] [address] MCH (RBC) [Entitic mass] 29.9 pg Normal 28.0-34.[address] [facility] [place] Comment on above: Performed By: #### 5 7021-8 #### [facility] [address] [place] [address] MCHC (RBC) [Mass/Vol] 34.5 g/dL Normal 33.0-37.0 [facility] ([place]) Comment on above: Performed By: #### 5 7021-8 #### [facility] [address] [place] [address] MCV (RBC) [Entitic vol] 86.8 fL Normal 80.0-100.[address] [facility] [place] Comment on above: Performed By: #### 5 7021-8 #### [facility] [address] [place] [address] Monocytes (Bld) [#/Vol] 1.0 10*3/uL High 0.20-0.[address] [facility] [place] Comment on above: Performed By: #### 5 7021-8 #### [facility] [address] [place] [address] Monocytes/100 WBC (Bld) 6.7 % Normal 3.4-9.[address] [facility] [place] Comment on above: Performed By: #### 5 7021-8 #### [facility] [address] [place] [address] Neutrophils (Bld) [#/Vol] 12.3 10*3/uL High 1.83-8.[address] [facility] ([place] Comment on above: Performed By: #### 5 7021-8 #### [facility] [address] [place] [address] Neutrophils/100 WBC (Bld) 81.0 % High 40.0-74.[address] [facility] [place] Comment on above: Performed By: #### 5 7021-8 #### [facility] [address] [place] [address] Platelet mean volume (Bld) [Entitic vol] 8.5 fL Normal 7.4-10.[address] [facility] ([place] Comment on above: Performed By: #### 5 7021-8 #### [facility] [address] [place] [address] Platelets (Bld) [#/Vol] 324 10*3/uL Normal 150-[address] [facility] ([place] Comment on above: Performed By: #### 5 7021-8 #### [facility] [address] [place] [address] RBC (Bld) [#/Vol] 5.19 10*6/uL Normal 4.50-5.[address] [facility] ([place] Comment on above: Performed By: #### 5 7021-8 #### [address] [address] WBC (Bld) [#/Vol] 15.1 10*3/uL High 4.5-11.[address] [facility] ([place] Comment on above: Performed By: #### 5 7021-8 #### [facility] [address] [place] [address] CT abdomen pelvis wo conon 0 06-06-2024 CT abdomen pelvis wo con [facility] [address] [place] [address] CT Scan Report Signed Patient: YEMI SALEH MR#: [id number] : 1970 Acct:[id number] Age/Sex: 53 / M Admit Date: 06/06/24 Loc: ER Attending Dr: Ordering Physician: Yang Ibanez DO Date of Service: 06/06/24 Procedure(s): CT abdomen pelvis wo con Accession Number(s): [id number] cc: Yang Ibanez DO PHYSICIAN INDICATIONS: R flank pain Technique: Axial images through the abdomen and pelvis without intravenous contrast. CT Dose Index: 12.8 mGy. DLP: 736 mGy-cm AEC. k=0.015 mSv/(mGy-cm) Findings: The heart size is normal. The lung bases are clear. Obstructing 4 x 10 mm stone proximal right ureter at the L3 level with moderate hydronephrosis and perinephric stranding right kidney. No additional stones. Liver is enlarged measuring 20 cm in length with decreased attenuation suggesting fatty infiltration. The adrenal glands are unremarkable. The spleen and pancreas are unremarkable. Gallbladder is present. No biliary dilation. No adenopathy or mass lesion in the mesentery or retroperitoneum. The aorta is normal in caliber. Bowel is not distended. No inflammation around the expected position of the appendix. Bladder is unremarkable. No masses are seen in the pelvis. Impression: CT Abdomen and Pelvis without contrast: 1. Obstructing 4 x 10 mm stone proximal right ureter at the L3 level with moderate hydronephrosis and perinephric stranding right kidney. 2. Liver is enlarged measuring 20 cm in length with decreased attenuation suggesting fatty infiltration. Dictated By: Obdulio Shipley MD DD/ 21 Signed By: Obdulio Shipley MD 06/06/241921 [employer]: BRITNEY 06/06/241921 Normal [facility] ([place]) Comprehensive metabolic 2000 panelon 06-06-2024 Albumin [Mass/Vol] 4.5 g/dL Normal 3.5-5.[address] [facility] [place] Comment on above: Performed By: #### 2 4323-8 #### [facility] [address] [place] [address] Albumin/Globulin [Mass ratio] 1.7 {ratio} Normal 1.1-2.[address] [facility] ([place] Comment on above: Performed By: #### 2 4323-8 #### [facility] [address] [place] [address] ALP [Catalytic activity/Vol] 63 U/L Normal 42-[address] [facility] ([place] Comment on above: Performed By: #### 2 4323-8 #### [facility] [address] [place] [address] ALT [Catalytic activity/Vol] 26 U/L Normal 7-[address] [facility] ([place] Comment on above: Performed By: #### 2 4323-8 #### [facility] [address] [place] [address] Anion gap [Moles/Vol] 12 mmol/L Normal 4-14 [facility] ([place] Comment on above: Performed By: #### 2 4323-8 #### [facility] [address] [place] [address] AST [Catalytic activity/Vol] 16 U/L Normal 10-[address] [facility] ([place] Comment on above: Performed By: #### 2 4323-8 #### [facility] [address] [place] [address] Bilirubin [Mass/Vol] 0.6 mg/dL Normal 0.3-1.5 [facility] ([place]) Comment on above: Performed By: #### 2 4323-8 #### [facility] [address] [place] [address] Calcium [Mass/Vol] 10.2 mg/dL Normal 8.5-10.[address] [facility] ([place] Comment on above: Performed By: #### 2 4323-8 #### [facility] [address] [place] [address] Chloride [Moles/Vol] 102 mmol/L Normal 98-107 [facility] ([place] Comment on above: Performed By: #### 2 4323-8 #### [facility] [address] [place] [address] CO2 [Moles/Vol] 22 mmol/L Normal 21-[address] [facility] ([place] Comment on above: Performed By: #### 2 4323-8 #### [facility] [address] [place] [address] Creatinine [Moles/Vol] 1.35 mg/dL High 0.70-1.30 [facility] ([place] Comment on above: Performed By: #### 2 4323-8 #### [facility] [address] [place] [address] Creatinine and Glomerular filtration rate.predicted panel (S/P/Bld) 67 mL/min Normal >[address] [facility] ([place] Comment on above: Performed By: #### 2 4323-8 #### [facility] [address] [place] [address] GFR/1.73 sq M.predicted among non-blacks MDRD (S/P/Bld) [Vol rate/Area] 55 mL/min/{1.73_m2} Normal >[address] [facility] ([place] Comment on above: Performed By: #### 2 4323-8 #### [facility] [address] [place] [address] Globulin (S) [Mass/Vol] 2.7 g/dL Normal 1.9-3.[address] [facility] ([place] Comment on above: Performed By: #### 2 4323-8 #### [address] [place] [address] Glucose [Mass/Vol] 208 mg/dL High 70-[address] [facility] ([place] Comment on above: Performed By: #### 2 4323-8 #### [facility] [address] [place] [address] Potassium [Moles/Vol] 4.1 mmol/L Normal 3.6-5.0 [facility] ([place] Comment on above: Performed By: #### 2 4323-8 #### [facility] [address] [place] [address] Protein [Mass/Vol] 7.2 g/dL Normal 6.2-8.[address] [facility] ([place] Comment on above: Performed By: #### 2 4323-8 #### [facility] [address] [place] [address] Sodium [Moles/Vol] 136 mmol/L Normal 135-[address] [facility] [place] Comment on above: Performed By: #### 2 4323-8 #### [facility] [address] [place] [address] Urea nitrogen [Mass/Vol] 16 mg/dL Normal 7-[address] [facility] ([place] Comment on above: Performed By: #### 2 4323-8 #### [facility] [address] [place] [address] Creatinine and Glomerular fi ltration rate.predicted panel (S/P/Bld)Ordered By: Yang Ibanez on 06-06-2024 Creatinine measurement and estimated glomerular filtration rate (GFR) Creatinine measurement and estimated glomerular filtration rate (GFR) >[address] [facility] Detection in urine of either or both bilirubin and urobilinogenOrdered By: Yang Ibanez on 06-06-2024 Bilirubin+Urobilinogen Ql (U) Detection in urine of either or both bilirubin and urobilinogen Negative [facility] Eosinophils Auto (Bld) [#/Vo l]Ordered By: Yang Ibanez on 06-06-2024 Eosinophils (Bld) [#/Vol] Automated eosinophil count 0.00-0.[address] [facility] Eosinophils/100 WBC Auto (Bl d)Ordered By: Yang Ibanez on 06-06-2024 Eosinophils/100 WBC (Bld) Eosinophil % 0.0-3.[address] [facility] Erythrocyte distribution wid th Auto (RBC) [Ratio]Ordered By: Yang Ibanez on 06-06-2024 Erythrocyte distribution width (RBC) [Ratio] Automated erythrocyte distribution width ratio 10.9-14.[address] [facility] Estimated glomerular filtrat ion rate (GFR) non- AmericanOrdered By: Yang Ibanez on 06-06-2024 GFR/1.73 sq M.predicted among non-blacks MDRD (S/P/Bld) [Vol rate/Area] Estimated glomerular filtration rate (GFR) non- >[address] [facility] Hematocrit Auto (Bld) [Volum e fraction]Ordered By: Yang Ibanez on 06-06-2024 Hematocrit (Bld) [Volume fraction] Automated blood hematocrit (percentage) 41.0-50.[address] [facility] Lymphocytes/100 WBC Auto (Bl d)Ordered By: Yang Ibanez on 06-06-2024 Lymphocytes/100 WBC (Bld) Automated blood lymphocytes/100 leukocytes 24.0-44.[address] [facility] MCH Auto (RBC) [Entitic mass ]Ordered By: Yang Ibanez on 06-06-2024 MCH (RBC) [Entitic mass] Automated erythrocyte mean corpuscular hemoglobin (mass per erythrocyte) 28.0-34.[address] [facility] MCHC Auto (RBC) [Mass/Vol]Or dered By: Yang Ibanez on 06-06-2024 MCHC (RBC) [Mass/Vol] Automated erythroc yte mean corpuscular hemoglobin concentration measurement (mass/vol 33.0-37.[address] [facility] MCV (mean corpuscular volume ) determinationOrdered By: Yang Ibanez on 06-06-2024 MCV (RBC) [Entitic vol] MCV (mean corpuscular volume) determination 80.0-100.[address] [facility] Microscopic examination of u rineOrdered By: Yang Ibanez on 06-06-2024 Microscopic observation LM Nom (Urine sed) Microscopic examination of urine [facility] Microscopic observation LM N om (Urine sed)on 06-06-2024 RBC Ql (U) >100 Normal None Seen [facility] ([place] Comment on above: Order Comment: Urine Collect Clean Catch Performed By: #### 1 2235-8, UAS #### [facility] [address] [place] [address] WBC Auto (U) [#/Vol] 21-50 Normal None Seen [facility] ([place]) Comment on above: Order Comment: Urine Collect Clean Catch Performed By: #### 1 2235-8, UAS #### [facility] [address] [place] [address] Monocytes Auto (Bld) [#/Vol] Ordered By: Yang Ibanez on 06-06-2024 Monocytes (Bld) [#/Vol] Absolute monocyte count 0.20-0.[address] [facility] Monocytes/100 WBC Auto (Bld) Ordered By: Yang Ibanez on 06-06-2024 Monocytes/100 WBC (Bld) Monocyte % 3.4-9.[address] [facility] Neutrophils Auto (Bld) [#/Vo l]Ordered By: Yang Ibanez on 06-06-2024 Neutrophils (Bld) [#/Vol] Automated blood neutrophil count 1.83-8.[address] [facility] Neutrophils/100 WBC Auto (Bl d)Ordered By: Yang Ibanez on 06-06-2024 Neutrophils/100 WBC (Bld) Automated neutrophil % 40.0-74.[address] [facility] Platelet mean volume Auto (B ld) [Entitic vol]Ordered By: Yang Ibanez on 06-06-2024 Platelet mean volume (Bld) [Entitic vol] Automated blood platelet mean volume measurement 7.4-10.[address] [facility] Platelets Auto (Bld) [#/Vol] Ordered By: Yang Ibanez on 06-06-2024 Platelets (Bld) [#/Vol] Automated blood platelet count 150-[address] [facility] Potassium [Moles/volume] in Serum or PlasmaOrdered By: Yang Ibanez on 06-06-2024 Potassium [Moles/Vol] Potassium [Moles/v olume] in Serum or Plasma 3.6-5.[address] [facility] RBC Auto (Bld) [#/Vol]Ordere d By: Yang Ibanez on 06-06-2024 RBC (Bld) [#/Vol] Automated blood erythrocyte count (number/volume) 4.50-5.[address] [facility] RBC LM Ql (Urine sed)Ordered By: Yang Ibanez on 06-06-2024 RBC Ql (U) Erythrocytes detecti on in urine sediment by light microscopy None Seen [facility] Serum globulin measurement ( mass/volume)Ordered By: Yang Ibanez on 06-06-2024 Globulin (S) [Mass/Vol] Serum globulin measurement (mass/volume) 1.9-3.[address] [facility] Serum glucose measurement (m ass/volume)Ordered By: Yang Ibanez on 06-06-2024 Glucose [Mass/Vol] Serum glucose measur ement (mass/volume) 70-[address] [facility] Serum or plasma albumin roberto carlos urementOrdered By: Yang Ibanez on 06-06-2024 Albumin [Mass/Vol] Albumin [Mass/volume ] in Serum or Plasma 3.5-5.[address] [facility] Serum or plasma albumin/glob ulin mass ratioOrdered By: Yang Ibanez on 06-06-2024 Albumin/Globulin [Mass ratio] Albumin/Globulin [Mass Ratio] in Serum or Plasma 1.1-2.[address] [facility] Serum or plasma anion gap de termination (moles/volume)Ordered By: Yang Ibanez on 06-06-2024 Anion gap [Moles/Vol] Serum or plasma an ion gap determination (moles/volume) 4-[address] [facility] Serum or plasma aspartate am inotransferase measurement (enzymatic activity/volume)Ordered By: Yang Ibanez on 06-06-2024 AST [Catalytic activity/Vol] Aspartate aminotransferase [Enzymatic activity/volume] in Serum or Plasma 10-[address] [facility] Serum or plasma calcium roberto carlos urement (mass/volume)Ordered By: Yang Ibanez on 06-06-2024 Calcium [Mass/Vol] Serum or plasma calc ium measurement (mass/volume) 8.5-10.[address] [facility] Serum or plasma chloride george surement (moles/volume)Ordered By: Yang Ibanez on 06-06-2024 Chloride [Moles/Vol] Chloride [Moles/vol ume] in Serum or Plasma 98-[address] [facility] Serum or plasma creatinine m easurement (moles/volume)Ordered By: Yang Ibanez on 06-06-2024 Creatinine [Moles/Vol] Serum or plasma c reatinine measurement (moles/volume) 0.70-1.[address] [facility] Serum or plasma sodium measu rement (mass or moles/volume)Ordered By: Yang Ibanez on 06-06-2024 Sodium [Moles/Vol] Serum or plasma sodi um measurement (moles/volume) 135-[address] [facility] Serum or plasma total biliru bin measurement (mass/volume)Ordered By: Yang Ibanez on 06-06-2024 Bilirubin [Mass/Vol] Bilirubin.total [Mass/volume] in Serum or Plasma 0.3-1.[address] [facility] Serum or plasma total carbon dioxide measurement (moles/volume)Ordered By: Yang Ibanez on 06-06-2024 CO2 [Moles/Vol] Carbon dioxide, tota l [Moles/volume] in Serum or Plasma [facility] Serum or plasma urea nitroge n measurement (mass/volume)Ordered By: Yang Ibanez on 06-06-2024 Urea nitrogen [Mass/Vol] Serum or plasma urea nitrogen measurement (mass/volume) 7-[address] [facility] Serum total protein measurem entOrdered By: Yang Ibanez on 06-06-2024 Protein [Mass/Vol] Total protein blood 6.2-8.[address] [facility] Transitional cells detection in urine sediment by light microscopyOrdered By: Yang Ibanez on 06-06-2024 Transitional cells LM Ql (Urine sed) Transitional cells detection in urine sediment by light microscopy [facility] Urinalysison 06-06-2024 Appearance (U) CLOUDY Normal [facility] ([place]) Comment on above: Order Comment: Urine Collect Clean Catch Performed By: #### 1 2235-8, UAS #### [facility] [address] [place] [address] Bilirubin+Urobilinogen Ql (U) Negative Normal Negative [facility] ([place]) Comment on above: Order Comment: Urine Collect Clean Catch Performed By: #### 1 8, UAS #### [facility] [address] [place] [address] Color (U) ISRA Normal [facility] ([place]) Comment on above: Order Comment: Urine Collect Clean Catch Performed By: #### 1 8, UAS #### [facility] [address] [place] [address] Glucose Auto test strip (U) [Mass/Vol] Negative Normal Negative [facility] [place] Comment on above: Order Comment: Urine Collect Clean Catch Performed By: #### 1 2235-05, UAS #### [facility] [address] [place] [address] Ketones Ql (U) 20 mg/dL Normal Negative [facility] [place] Comment on above: Order Comment: Urine Collect Clean Catch Performed By: #### 1 2235-05, UAS #### [facility] [address] [place] [address] Microscopic observation LM Nom (Urine sed) YES Normal [facility] ([place] Comment on above: Order Comment: Urine Collect Clean Catch Performed By: #### 1 2235-05, UAS #### [facility] [address] [place] [address] Nitrate Ql (U) Negative Normal Negative [facility] ([place] Comment on above: Order Comment: Urine Collect Clean Catch Performed By: #### 1 2235-05, UAS #### [facility] [address] [place] [address] pH (U) 7.0 [pH] Normal 4.6-8.[address] [facility] ([place] Comment on above: Order Comment: Urine Collect Clean Catch Performed By: #### 1 2235-05, UAS #### [facility] [address] [place] [address] Protein Auto test strip Ql (U) 100 mg/dL Abnormal Negative [facility] ([place] Comment on above: Order Comment: Urine Collect Clean Catch Performed By: #### 1 2235-05, UAS #### [facility] [address] [place] [address] RBC Ql (U) LARGE Abnormal Negative [facility] ([place] Comment on above: Order Comment: Urine Collect Clean Catch Performed By: #### 1 2235-05, UAS #### [facility] [address] [place] [address] Specific gravity (U) [Rel density] 1.021 Normal 1.001-1.[address] [facility] ([place] Comment on above: Order Comment: Urine Collect Clean Catch Performed By: #### 1 2235-05, UAS #### [facility] [address] [place] [address] Urobilinogen (U) [Mass/Vol] Negative Normal Negative [facility] ([place] Comment on above: Order Comment: Urine Collect Clean Catch Performed By: #### 1 2235-05, UAS #### [facility] [address] [place] [address] WBC Visual Ql (U) Negative Normal Negative [facility] ([place] Comment on above: Order Comment: Urine Collect Clean Catch Performed By: #### 1 2235-05, UAS #### [address] [address] Urine blood detectionOrdered By: Yang Ibanez on 06-06-2024 RBC Ql (U) Urine blood detection Negative [facility] Urine colorOrdered By: Yang Ibanez on 06-06-2024 Color (U) Color ur [facility] Urine glucose measurement by automated test strip (mass/volume)Ordered By: Yang Ibanez on 06-06-2024 Glucose Auto test strip (U) [Mass/Vol] Glucose [Mass/volume] in Urine by Automated test strip Negative [facility] Urine ketones detectionOrder ed By: Yang Ibanez on 06-06-2024 Ketones Ql (U) Urine ketones detection Negative [facility] Urine leukocytes detection b y microscopyOrdered By: Yang Ibanez on 06-06-2024 WBC Visual Ql (U) Urine leukocytes det ection by microscopy Negative [facility] Urine nitrate detectionOrder ed By: Yang Ibanez on 06-06-2024 Nitrate Ql (U) Urine nitrate detection Negative [facility] Urine pHOrdered By: Yang burciaga on 06-06-2024 pH (U) Urine pH 4.6-8.[address] [facility] Urine protein detection by a utomated test stripOrdered By: Yang Ibanez on 06-06-2024 Protein Auto test strip Ql (U) Urine protein detection by automated test strip Negative [facility] Urine specific gravity measu rementOrdered By: Yang Ibanez on 06-06-2024 Specific gravity (U) [Rel density] Specific gravity of Urine 1.001-1.[address] [facility] Urobilinogen Test strip (U) [Mass/Vol]Ordered By: Yang Ibanez on 06-06-2024 Urobilinogen (U) [Mass/Vol] Urobilinogen [Mass/volume] in Urine by Test strip Negative [facility] WBC Auto (Bld) [#/Vol]Ordere d By: Yang Ibanez on 06-06-2024 WBC (Bld) [#/Vol] Automated white bloo d cell (WBC) differential count 4.5-11.[address] [facility] Laboratory - Chemistry and C hemistry - challengeon 12-29-2023 Creatinine (U) [Mass/Vol] 216 mg/dL Normal 20 - 320 mg/dL [facility], [facility].; [employer] [facility], [facility]. Laboratory - Hematology and Cell countson 12-29-2023 HbA1c (Bld) [Mass fraction] 7.3 % Abnormal 4.6 - 7.1 % [facility], [facility].; [employer] [facility], [facility]. No Panel Informationon 12-28 ALBUMIN, URINE 4.7 mg/dL Normal [facility], [facility].; [employer] [facility], [facility]. ALBUMIN/CREATININE RATIO, RANDOM URINE 22 Normal [facility].; [facility]. PSA, TOTAL 0.36 ng/mL Normal [facility].; [facility], [facility] Laboratory - Chemistry and C hemistry - challengeon 09-30-2023 Albumin [Mass/Vol] 4.6 g/dL Normal 3.6 - 5.1 g/dL [facility].; [facility], [facility] Albumin/Globulin [Mass ratio] 1.8 {ratio} Normal 1.0 - 2.5 [facility]; [facility], [facility]. ALP [Catalytic activity/Vol] 66 U/L Normal 35 - 144 U/L [facility].; [facility], [facility]. ALT [Catalytic activity/Vol] 75 U/L Abnormal 9 - 46 U/L [facility].; [facility], [facility]. AST [Catalytic activity/Vol] 33 U/L Normal 10 - 35 U/L [facility].; [facility], [facility]. Bilirubin [Mass/Vol] 0.5 mg/dL Normal 0.2 - 1 .2 mg/dL [facility].; [facility], [facility]. Calcium [Mass/Vol] 9.9 mg/dL Normal 8.6 - 10. 3 mg/dL [facility].; [facility], [facility]. Chloride [Moles/Vol] 103 mmol/L Normal 98 - 11 0 mmol/L [facility].; [facility], [facility]. Cholesterol [Mass/Vol] 116 mg/dL Normal [facility].; [facility], [facility]. Cholesterol in HDL [Mass/Vol] 41 mg/dL Normal [facility].; [facility], [facility]. Cholesterol in LDL [Mass/Vol] 57 mg/dL Normal [facility], [facility].; [facility], [facility]. CO2 [Moles/Vol] 29 mmol/L Normal 20 - 32 mmol/L [facility], [facility].; [facility], [facility]. Creatinine [Mass/Vol] 0.99 mg/dL Normal 0.70 - 1.30 mg/dL [facility], [facility].; [facility], [facility]. GFR/1.73 sq M.predicted among non-blacks MDRD (S/P/Bld) [Vol rate/Area] 91 mL/min/{1.73_m2} Normal [facility]; [place] [employer] [facility], [facility] Glucose [Mass/Vol] 141 mg/dL Abnormal 65 - 99 mg/dL [facility].; [place] [employer] [facility], [facility] Potassium [Moles/Vol] 4.9 mmol/L Normal 3.5 - 5.3 mmol/L [facility].; [place] [employer] [facility], [facility] Protein [Mass/Vol] 7.2 g/dL Normal 6.1 - 8.1 g/dL [facility]; [place] [employer] [facility], [facility] Sodium [Moles/Vol] 141 mmol/L Normal 135 - 146 mmol/L [facility].; [place] [employer] [facility], [employer]. Triglyceride [Mass/Vol] 95 mg/dL Normal [place] [employer] [facility]; [place] [employer], [employer] Urea nitrogen [Mass/Vol] 13 mg/dL Normal 7 - 25 mg/dL [place] [employer] [facility]; [employer] [facility] Laboratory - Hematology and Cell countson 09-30-2023 HbA1c (Bld) [Mass fraction] 7.2 % Abnormal 4.6 - 7.1 % [facility]; [place] [employer] [facility] No Panel Informationon 09-30 BUN/CREATININE RATIO SEE NOTE: Normal 6 - 22 [facility].; [employer], [employer]. CHOL/HDLC RATIO 2.8 Normal [place] [employer] [facility]; [place] [employer], [facility]. GLOBULIN 2.6 Normal 1.9 - 3.7 [place] [employer] [facility].; [employer], [facility]. NON HDL CHOLESTEROL 75 Normal [facility].; [place] [employer], [employer]. Laboratory - Chemistry and C hemistry - challengeon 08-02-2023 Albumin [Mass/Vol] 4.6 g/dL Normal 3.6 - 5.1 g/dL [facility].; [employer], [facility] Albumin DL <= 20 mg/L (U) [Mass/Vol] 80 mg/dL Normal [place] [employer] [facility].; [facility] Albumin/Creatinine (U) [Mass ratio] 30-300 mg/g Abnormal [facility].; [facility] Albumin/Globulin [Mass ratio] 2.0 {ratio} Normal 1.0 - 2.5 [facility]; [facility] ALP [Catalytic activity/Vol] 58 U/L Normal 35 - 144 U/L [facility].; [facility] ALT [Catalytic activity/Vol] 32 U/L Normal 9 - 46 U/L [facility].; [facility], [facility]. AST [Catalytic activity/Vol] 19 U/L Normal 10 - 35 U/L [facility]; [facility] Bilirubin [Mass/Vol] 0.6 mg/dL Normal 0.2 - 1 .2 mg/dL [facility]; [facility], [facility] Calcium [Mass/Vol] 9.6 mg/dL Normal 8.6 - 10. 3 mg/dL [facility]; [facility] Chloride [Moles/Vol] 102 mmol/L Normal 98 - 11 0 mmol/L [facility]; [facility], [facility]. Cholesterol [Mass/Vol] 164 mg/dL Normal [facility]; [facility], [facility] Cholesterol in HDL [Mass/Vol] 51 mg/dL Normal [facility]; [facility], [facility] Cholesterol in LDL [Mass/Vol] 86 mg/dL Normal [facility]; [facility] CO2 [Moles/Vol] 27 mmol/L Normal 20 - 32 mmol/L [facility]; [facility] Creatinine (U) [Mass/Vol] 200 mg/dL Normal [facility].; [facility], [facility] Creatinine [Mass/Vol] 0.95 mg/dL Normal 0.70 - 1.30 mg/dL [facility].; [facility], [facility] GFR/1.73 sq M.predicted among non-blacks MDRD (S/P/Bld) [Vol rate/Area] 96 mL/min/{1.73_m2} Normal [facility].; [facility]. Glucose [Mass/Vol] 136 mg/dL Abnormal 65 - 99 mg/dL [facility].; [place] [employer] [facility]. Potassium [Moles/Vol] 4.3 mmol/L Normal 3.5 - 5.3 mmol/L [facility].; [place] [employer] [facility] Protein [Mass/Vol] 6.9 g/dL Normal 6.1 - 8.1 g/dL [facility].; [place] [employer] [facility] Sodium [Moles/Vol] 139 mmol/L Normal 135 - 146 mmol/L [facility]; [place] [employer] [facility] Triglyceride [Mass/Vol] 170 mg/dL Abnormal [facility]; [place] [employer] [facility] Urea nitrogen [Mass/Vol] 13 mg/dL Normal 7 - 25 mg/dL [facility]; [place] [employer] [facility] No Panel Informationon 08-02 BUN/CREATININE RATIO SEE NOTE: Normal [facility].; [place] [employer] [facility]. CHOL/HDLC RATIO 3.2 Normal [facility]; [place] [employer] [facility] GLOBULIN 2.3 Normal 1.9 - 3.7 [facility]; [place] [employer] [facility] NON HDL CHOLESTEROL 113 Normal [facility]; [place] [employer] [facility]. Laboratory - Hematology and Cell countson 07-08-2023 HbA1c (Bld) [Mass fraction] 8.1 % Abnormal 4.6 - 7.1 % [facility].; [place] [employer] [facility]. Laboratory - Hematology and Cell countson 12-31-2022 HbA1c (Bld) [Mass fraction] 7.6 % Abnormal 4.6 - 7.1 % [facility].; [place] [employer] [facility]. No Panel Informationon 12-31 PSA, TOTAL 0.33 ng/mL Normal [facility].; [place] [employer] [facility]. Laboratory - Chemistry and C hemistry - challengeon 06-30-2022 Albumin [Mass/Vol] 4.7 g/dL Normal 3.6 - 5.1 g/dL [facility] Albumin/Creatinine DL <= 20 mg/L (U) [Mass ratio] mg/g Normal [facility]; [facility], [facility] Albumin/Globulin [Mass ratio] 2.0 {ratio} Normal 1.0 - 2.5 [facility]; [facility], [facility] ALP [Catalytic activity/Vol] 66 U/L Normal 35 - 144 U/L [facility].; [facility] ALT [Catalytic activity/Vol] 23 U/L Normal 9 - 46 U/L [facility].; [facility], [facility]. AST [Catalytic activity/Vol] 14 U/L Normal 10 - 35 U/L [facility].; [facility], [facility] Bilirubin [Mass/Vol] 0.7 mg/dL Normal 0.2 - 1 .2 mg/dL [facility]; [facility], [facility] Calcium [Mass/Vol] 9.6 mg/dL Normal 8.6 - 10. 3 mg/dL [facility].; [facility], [facility] Chloride [Moles/Vol] 105 mmol/L Normal 98 - 11 0 mmol/L [facility].; [facility], [facility]. Cholesterol [Mass/Vol] 134 mg/dL Normal [facility]; [facility], [facility] Cholesterol in HDL [Mass/Vol] 47 mg/dL Normal [facility].; [facility], [facility] Cholesterol in LDL [Mass/Vol] 71 mg/dL Normal [facility].; [facility], [facility] CO2 [Moles/Vol] 28 mmol/L Normal 20 - 32 mmol/L [facility]; [facility], [facility] Creatinine (U) [Mass/Vol] 200 mg/dL Normal [facility].; [facility], [facility]. Creatinine [Mass/Vol] 1.04 mg/dL Normal 0.70 - 1.30 mg/dL [facility].; [facility], [facility] GFR/1.73 sq M.predicted among non-blacks MDRD (S/P/Bld) [Vol rate/Area] 86 mL/min/{1.73_m2} Normal [facility].; [facility] Glucose [Mass/Vol] 124 mg/dL Abnormal 65 - 99 mg/dL [facility].; [facility] Potassium [Moles/Vol] 4.4 mmol/L Normal 3.5 - 5.3 mmol/L [facility]; [facility] Protein [Mass/Vol] 7.1 g/dL Normal 6.1 - 8.1 g/dL [facility]; [facility], [facility] Sodium [Moles/Vol] 140 mmol/L Normal 135 - 146 mmol/L [facility]; [facility] Triglyceride [Mass/Vol] 82 mg/dL Normal [facility]; [place] [facility] Urea nitrogen [Mass/Vol] 14 mg/dL Normal 7 - 25 mg/dL [facility]; [facility] Laboratory - Hematology and Cell countson 06-30-2022 HbA1c (Bld) [Mass fraction] 6.8 % Normal 4.6 - 7.1 % [facility]; [facility] Laboratory - Urinalysison Protein Ql (U) 30 mg/dL Abnormal [facility]; [place] [facility] No Panel Informationon 06-30 BUN/CREATININE RATIO NOT APPLICABLE Normal 6 - 22 [facility]; [place] [facility] CHOL/HDLC RATIO 2.9 Normal [facility]; [place] [facility]. GLOBULIN 2.4 Normal 1.9 - 3.7 [facility]; [place] [facility], [facility] NON HDL CHOLESTEROL 87 Normal [facility] Laboratory - Hematology and Cell countson 12-30-2021 HbA1c (Bld) [Mass fraction] 7.2 % Abnormal 4.6 - 7.1 % [facility]; [facility] No Panel Informationon 12-30 PSA, TOTAL 0.40 ng/mL Normal [facility].; [facility] Laboratory - Chemistry and C hemistry - challengeon 07-01-2021 Albumin [Mass/Vol] 4.9 g/dL Normal 3.6 - 5.1 g/dL [facility].; [facility], [facility] Albumin/Globulin [Mass ratio] 2.0 {ratio} Normal 1.0 - 2.5 [facility].; [facility] ALP [Catalytic activity/Vol] 60 U/L Normal 35 - 144 U/L [facility].; [facility], [facility]. ALT [Catalytic activity/Vol] 30 U/L Normal 9 - 46 U/L [facility].; [facility], [facility]. AST [Catalytic activity/Vol] 18 U/L Normal 10 - 35 U/L [facility], [facility].; [facility], [facility] Bilirubin [Mass/Vol] 0.7 mg/dL Normal 0.2 - 1 .2 mg/dL [facility].; [facility], [facility] Calcium [Mass/Vol] 9.8 mg/dL Normal 8.6 - 10. 3 mg/dL [facility], [facility].; [facility], [facility]. Chloride [Moles/Vol] 104 mmol/L Normal 98 - 11 0 mmol/L [facility].; [facility], [facility]. Cholesterol [Mass/Vol] 142 mg/dL Normal [facility], [facility] Cholesterol in HDL [Mass/Vol] 48 mg/dL Normal [facility].; [facility], [facility]. Cholesterol in LDL [Mass/Vol] 72 mg/dL Normal [facility], [facility].; [facility], [facility]. CO2 [Moles/Vol] 23 mmol/L Normal 20 - 32 mmol/L [facility].; [facility], [facility]. Creatinine [Mass/Vol] 1.06 mg/dL Normal 0.70 - 1.33 mg/dL [facility], [facility].; [facility], [facility]. GFR/1.73 sq M.predicted among blacks MDRD (S/P/Bld) [Vol rate/Area] 94 mL/min/{1.73_m2} Normal [facility]; [facility], [facility] Glucose [Mass/Vol] 105 mg/dL Abnormal 65 - 99 mg/dL [facility]; [facility] Potassium [Moles/Vol] 4.3 mmol/L Normal 3.5 - 5.3 mmol/L [facility]; [facility], [facility] Protein [Mass/Vol] 7.4 g/dL Normal 6.1 - 8.1 g/dL [facility]; [facility], [facility] Sodium [Moles/Vol] 139 mmol/L Normal 135 - 146 mmol/L [facility]; [facility] Triglyceride [Mass/Vol] 140 mg/dL Normal [facility]; [place] [facility], [facility] Urea nitrogen [Mass/Vol] 13 mg/dL Normal 7 - 25 mg/dL [facility]; [facility] Laboratory - Hematology and Cell countson 07-01-2021 HbA1c (Bld) [Mass fraction] 6.5 % Normal 4.6 - 7.1 % [facility]; [place] [facility] No Panel Informationon 07-01 BUN/CREATININE RATIO NOT APPLICABLE Normal 6 - 22 [facility]; [place] [facility] CHOL/HDLC RATIO 3.0 Normal [facility]; [facility], [facility] eGFR NON-AFR. CROATIAN 81 Normal [facility]; [facility], [facility] GLOBULIN 2.5 Normal 1.9 - 3.7 [facility]; [facility], [facility] NON HDL CHOLESTEROL 94 Normal [facility]; [place] [facility] Laboratory - Chemistry and C hemistry - challengeon 12-31-2020 Albumin [Mass/Vol] 4.8 g/dL Normal 3.6 - 5.1 g/dL [facility]; [facility], [facility] Albumin/Globulin [Mass ratio] 2.2 {ratio} Normal 1.0 - 2.5 [facility]; [facility] ALP [Catalytic activity/Vol] 61 U/L Normal 35 - 144 U/L [facility], [facility].; [facility], [facility]. ALT [Catalytic activity/Vol] 42 U/L Normal 9 - 46 U/L [facility].; [facility], [facility]. AST [Catalytic activity/Vol] 23 U/L Normal 10 - 35 U/L [facility].; [facility], [facility] Bilirubin [Mass/Vol] 0.6 mg/dL Normal 0.2 - 1 .2 mg/dL [facility].; [facility], [facility] Calcium [Mass/Vol] 9.5 mg/dL Normal 8.6 - 10. 3 mg/dL [facility]; [facility], [facility]. Chloride [Moles/Vol] 103 mmol/L Normal 98 - 11 0 mmol/L [facility], [facility].; [facility], [facility] Cholesterol [Mass/Vol] 201 mg/dL Abnormal [facility], [facility] Cholesterol in HDL [Mass/Vol] 44 mg/dL Normal [facility].; [facility], [facility] Cholesterol in LDL [Mass/Vol] 131 mg/dL Abnormal [facility]; [facility], [facility]. CO2 [Moles/Vol] 27 mmol/L Normal 20 - 32 mmol/L [facility]; [facility], [facility] Creatinine [Mass/Vol] 1.00 mg/dL Normal 0.70 - 1.33 mg/dL [facility], [facility].; [facility], [facility]. GFR/1.73 sq M.predicted among blacks MDRD (S/P/Bld) [Vol rate/Area] 101 mL/min/{1.73_m2} Normal [facility], [facility].; [facility], [facility] Glucose [Mass/Vol] 144 mg/dL Abnormal 65 - 99 mg/dL [facility], [facility].; [facility], [facility]. Potassium [Moles/Vol] 4.4 mmol/L Normal 3.5 - 5.3 mmol/L [facility], [facility].; [facility], [facility] Protein [Mass/Vol] 7.0 g/dL Normal 6.1 - 8.1 g/dL [facility]; [facility], [facility] Sodium [Moles/Vol] 138 mmol/L Normal 135 - 146 mmol/L [facility]; [facility] Triglyceride [Mass/Vol] 149 mg/dL Normal [facility]; [facility] TSH Qn 2.15 m[IU]/L Normal 0.40 - 4.50 {mIU/L} [facility]; [facility] Urea nitrogen [Mass/Vol] 12 mg/dL Normal 7 - 25 mg/dL [facility]; [facility], [facility] Laboratory - Hematology and Cell countson 12-31-2020 HbA1c (Bld) [Mass fraction] 7.4 % Abnormal 4.6 - 7.1 % [facility]; [facility] No Panel Informationon 12-31 BUN/CREATININE RATIO NOT APPLICABLE Normal 6 - 22 [facility]; [facility] CHOL/HDLC RATIO 4.6 Normal [facility]; [facility], [facility] eGFR NON-AFR. CROATIAN 87 Normal [facility]; [facility] GLOBULIN 2.2 Normal 1.9 - 3.7 [facility]; [facility], [facility] NON HDL CHOLESTEROL 157 Abnormal [facility]; [facility] PSA, TOTAL 0.4 ng/mL Normal [facility]; [facility], [facility] Laboratory - Hematology and Cell countson 07-02-2020 HbA1c (Bld) [Mass fraction] 7.4 % Abnormal 4.6 - 7.1 % [facility]; [facility], [facility] Laboratory - Chemistry and C hemistry - challengeon 04-02-2020 Albumin [Mass/Vol] 4.7 g/dL Normal 3.6 - 5.1 g/dL [facility]; [place] [facility], [facility] Albumin/Creatinine DL <= 20 mg/L (U) [Mass ratio] mg/g Normal [facility]; [facility], [facility]. Albumin/Globulin [Mass ratio] 2.0 {ratio} Normal 1.0 - 2.5 [facility].; [facility], [facility] ALP [Catalytic activity/Vol] 58 U/L Normal 35 - 144 U/L [facility].; [facility], [facility]. ALT [Catalytic activity/Vol] 29 U/L Normal 9 - 46 U/L [facility].; [facility], [facility]. AST [Catalytic activity/Vol] 21 U/L Normal 10 - 35 U/L [facility].; [facility], [facility] Bilirubin [Mass/Vol] 0.6 mg/dL Normal 0.2 - 1 .2 mg/dL [facility].; [facility], [facility]. Calcium [Mass/Vol] 9.9 mg/dL Normal 8.6 - 10. 3 mg/dL [facility].; [facility], [facility] Chloride [Moles/Vol] 104 mmol/L Normal 98 - 11 0 mmol/L [facility].; [place] [facility], [facility]. Cholesterol [Mass/Vol] 181 mg/dL Normal [facility].; [facility], [facility] Cholesterol in HDL [Mass/Vol] 52 mg/dL Normal [facility].; [facility], [facility]. Cholesterol in LDL [Mass/Vol] 108 mg/dL Abnormal [facility].; [place] [facility], [facility] CO2 [Moles/Vol] 18 mmol/L Abnormal 20 - 32 mmol/L [facility].; [facility], [facility]. Creatinine (U) [Mass/Vol] 300 mg/dL Normal [facility].; [place] [facility], [facility]. Creatinine [Mass/Vol] 1.04 mg/dL Normal 0.70 - 1.33 mg/dL [facility].; [place] [facility], [facility]. GFR/1.73 sq M.predicted among blacks MDRD (S/P/Bld) [Vol rate/Area] 97 mL/min/{1.73_m2} Normal [facility].; [facility], [facility]. Glucose [Mass/Vol] 125 mg/dL Abnormal 65 - 99 mg/dL [facility]; [facility] Potassium [Moles/Vol] 4.5 mmol/L Normal 3.5 - 5.3 mmol/L [facility]; [facility], [facility] Protein [Mass/Vol] 7.0 g/dL Normal 6.1 - 8.1 g/dL [facility]; [facility], [facility] Sodium [Moles/Vol] 138 mmol/L Normal 135 - 146 mmol/L [facility]; [place] [facility] Triglyceride [Mass/Vol] 116 mg/dL Normal [facility]; [place] [facility] Urea nitrogen [Mass/Vol] 17 mg/dL Normal 7 - 25 mg/dL [facility]; [place] [facility] Laboratory - Hematology and Cell countson 04-02-2020 HbA1c (Bld) [Mass fraction] 7.1 % Abnormal [facility]; [place] [facility] Laboratory - Urinalysison Protein Ql (U) 30 mg/dL Abnormal [facility]; [place] [facility] No Panel Informationon 04-02 BUN/CREATININE RATIO NOT APPLICABLE Normal 6 - 22 [facility]; [place] [facility] CHOL/HDLC RATIO 3.5 Normal [facility]; [place] [facility] eGFR NON-AFR. CROATIAN 83 Normal [facility]; [place] [facility] GLOBULIN 2.3 Normal 1.9 - 3.7 [facility]; [place] [facility], [facility] NON HDL CHOLESTEROL 129 Normal [facility]; [place] [facility] Laboratory - Hematology and Cell countson 07-18-2019 HbA1c (Bld) [Mass fraction] 5.7 % Normal 4.6 - 7.1 % [facility]; [place] [employer], [facility] Laboratory - Chemistry and C hemistry - challengeon 01-17-2019 Albumin/Creatinine DL <= 20 mg/L (U) [Mass ratio] mg/g Normal [facility]; [place] [facility]. Creatinine (U) [Mass/Vol] 100 mg/dL Normal [facility].; [facility] Laboratory - Urinalysison Protein Ql (U) 10mg/L Normal [facility].; [place] [facility]. Laboratory - Chemistry and C hemistry - challengeon 01-10-2019 Albumin [Mass/Vol] 4.6 g/dL Normal 3.6 - 5.1 g/dL [facility].; [facility]. Albumin/Globulin [Mass ratio] 2.0 {ratio} Normal 1.0 - 2.5 [facility].; [facility]. ALP [Catalytic activity/Vol] 54 U/L Normal 40 - 115 U/L [facility].; [facility], [facility]. ALT [Catalytic activity/Vol] 21 U/L Normal 9 - 46 U/L [facility].; [facility]. AST [Catalytic activity/Vol] 15 U/L Normal 10 - 40 U/L [facility].; [place] [facility]. Bilirubin [Mass/Vol] 0.8 mg/dL Normal 0.2 - 1 .2 mg/dL [facility].; [place] [facility], [facility]. Calcium [Mass/Vol] 9.5 mg/dL Normal 8.6 - 10. 3 mg/dL [facility].; [place] [facility]. Chloride [Moles/Vol] 105 mmol/L Normal 98 - 11 0 mmol/L [facility].; [facility]. Cholesterol [Mass/Vol] 156 mg/dL Normal [facility]; [facility]. Cholesterol in HDL [Mass/Vol] 51 mg/dL Normal [facility].; [facility], [facility]. Cholesterol in LDL [Mass/Vol] 88 mg/dL Normal 0 - 100 mg/dL [facility].; [place] [facility], [facility]. Cholesterol non HDL [Mass/Vol] 105 mg/dL Normal [facility].; [facility]. Cholesterol.total/Chol esterol in HDL [Mass ratio] 3.1 {ratio} Normal [facility].; [place] [facility]. CO2 [Moles/Vol] 27 mmol/L Normal 20 - 32 mmol/L [facility].; [place] [facility], [employer]. Creatinine [Mass/Vol] 0.98 mg/dL Normal 0.60 - 1.35 mg/dL [facility], [facility].; [place] [employer], [employer]. GFR/1.73 sq M.predicted among blacks MDRD (S/P/Bld) [Vol rate/Area] 104 {ML/MIN/1.73M2} Normal [facility].; [place] [facility], [facility]. GFR/1.73 sq M.predicted MDRD (S/P/Bld) [Vol rate/Area] 90 {ML/MIN/1.73M2} Normal [facility].; [place] [employer], [employer]. Globulin (S) [Mass/Vol] 2.3 g/dL Normal 1.9 - 3.7 g/dL [facility].; [place] [employer], [employer]. Glucose [Mass/Vol] 97 mg/dL Normal 65 - 99 mg/dL [facility].; [employer], [employer]. Potassium [Moles/Vol] 4.3 mmol/L Normal 3.5 - 5.3 mmol/L [facility].; [place] [employer], [employer]. Protein [Mass/Vol] 6.9 g/dL Normal 6.1 - 8.1 g/dL [facility], [facility].; [employer], [employer]. Sodium [Moles/Vol] 139 mmol/L Normal 135 - 146 mmol/L [facility].; [employer], [employer]. Triglyceride [Mass/Vol] 81 mg/dL Normal [place] [facility].; [employer], [employer]. Urea nitrogen [Mass/Vol] 13 mg/dL Normal 7 - 25 mg/dL [facility].; [place] [employer], [facility]. Urea nitrogen/Creatinine [Mass ratio] 13.1 mg/mg Normal 6 - 22 [facility].; [employer]. Laboratory - Hematology and Cell countson 01-10-2019 HbA1c (Bld) [Mass fraction] 5.9 % Abnormal 0 - 5.6 % [facility].; [facility]. Laboratory - Hematology and Cell countson 07-19-2018 HbA1c (Bld) [Mass fraction] 5.9 % Normal 4.6 - 7.1 % [facility].; [place] [employer], [employer]. Laboratory - Chemistry and C hemistry - challengeon 01-18-2018 Albumin [Mass/Vol] 4.9 g/dL Normal 3.6 - 5.1 g/dL [facility], [facility].; [facility], [facility]. Albumin/Globulin [Mass ratio] 2.2 {ratio} Normal 1.0 - 2.5 [facility].; [facility], [facility]. ALP [Catalytic activity/Vol] 57 U/L Normal 40 - 115 U/L [facility].; [facility], [facility] ALT [Catalytic activity/Vol] 31 U/L Normal 9 - 46 U/L [facility], [facility].; [place] [employer] [facility], [employer]. AST [Catalytic activity/Vol] 17 U/L Normal 10 - 40 U/L [facility].; [place] [employer], [employer]. Bilirubin [Mass/Vol] 0.8 mg/dL Normal 0.2 - 1 .2 mg/dL [facility], [facility].; [place] [employer] [facility], [facility]. Calcium [Mass/Vol] 9.9 mg/dL Normal 8.6 - 10. 3 mg/dL [facility], [facility].; [place] [employer] [facility], [facility]. Chloride [Moles/Vol] 105 mmol/L Normal 98 - 11 0 mmol/L [facility].; [place] [employer], [facility]. Cholesterol [Mass/Vol] 170 mg/dL [facility].; [facility], [facility]. Cholesterol in HDL [Mass/Vol] 48 mg/dL Normal [facility], [facility].; [facility], [facility]. Cholesterol in LDL [Mass/Vol] 98 mg/dL Normal 0 - 100 mg/dL [facility], [facility].; [place] [employer] [facility] Cholesterol non HDL [Mass/Vol] 123 mg/dL Normal [facility], [facility].; [place] [employer] [facility], [facility]. Cholesterol.total/Chol esterol in HDL [Mass ratio] 3.5 {ratio} Normal [facility].; [facility]. CO2 [Moles/Vol] 26 mmol/L Normal 20 - 31 mmol/L [facility].; [place] [employer] [facility], [facility]. Creatinine [Mass/Vol] 0.99 mg/dL Normal 0.60 - 1.35 mg/dL [facility], [facility].; [place] [employer] [facility], [facility]. GFR/1.73 sq M.predicted among blacks MDRD (S/P/Bld) [Vol rate/Area] 104 {ML/MIN/1.73M2} Normal [facility].; [facility], [facility]. GFR/1.73 sq M.predicted MDRD (S/P/Bld) [Vol rate/Area] 90 {ML/MIN/1.73M2} Normal [facility], [facility].; [place] [employer] [facility], [employer]. Globulin (S) [Mass/Vol] 2.2 g/dL Normal 1.9 - 3.7 g/dL [facility].; [place] [employer], [facility]. Glucose [Mass/Vol] 109 mg/dL Abnormal 65 - 99 mg/dL [facility].; [place] [employer] [facility], [facility]. Potassium [Moles/Vol] 4.5 mmol/L Normal 3.5 - 5.3 mmol/L [facility].; [place] [employer] [facility], [facility]. Protein [Mass/Vol] 7.1 g/dL Normal 6.1 - 8.1 g/dL [facility], [facility].; [place] [employer], [facility]. Sodium [Moles/Vol] 139 mmol/L Normal 135 - 146 mmol/L [facility].; [place] [employer]. Triglyceride [Mass/Vol] 137 mg/dL Normal [place] [facility].; [place] [employer], [facility] Urea nitrogen [Mass/Vol] 12 mg/dL Normal 7 - 25 mg/dL [facility].; [place] [employer] [facility], [facility]. Urea nitrogen/Creatinine [Mass ratio] 12.1 mg/mg Normal 6 - 22 [facility].; [place] [employer], [facility]. Laboratory - Hematology and Cell countson 01-18-2018 HbA1c (Bld) [Mass fraction] 6.1 % Normal 4.6 - 7.1 % [facility].; [place] [facility] Laboratory - Chemistry and C hemistry - challengeon 07-20-2017 Albumin/Creatinine DL <= 20 mg/L (U) [Mass ratio] mg/g Normal [facility].; [facility], [employer] Creatinine (U) [Mass/Vol] 200 mg/dL Normal [facility].; [place] [employer] [facility] Laboratory - Hematology and Cell countson 07-20-2017 HbA1c (Bld) [Mass fraction] 6 % Normal 4.6 - 7.1 % [facility]; [place] [facility] Laboratory - Urinalysison Protein Ql (U) 10 mg/dL Normal [facility]; [place] [facility] Laboratory - Chemistry and C hemistry - challengeon 01-19-2017 Albumin [Mass/Vol] 4.6 g/dL Normal 3.6 - 5.1 g/dL [facility].; [place] [employer] [facility]. Albumin/Globulin [Mass ratio] 1.8 {ratio} Normal 1.0 - 2.5 [facility].; [place] [employer] [facility]. ALP [Catalytic activity/Vol] 52 U/L Normal 40 - 115 U/L [facility].; [place] [employer] [facility], [facility]. ALT [Catalytic activity/Vol] 24 U/L Normal 9 - 46 U/L [facility].; [place] [employer] [facility]. AST [Catalytic activity/Vol] 11 U/L Normal 10 - 40 U/L [facility].; [place] [facility]. Bilirubin [Mass/Vol] 0.5 mg/dL Normal 0.2 - 1 .2 mg/dL [facility].; [place] [employer] [facility], [employer]. Calcium [Mass/Vol] 10.0 mg/dL Normal 8.6 - 10. 3 mg/dL [place] [facility].; [place] [employer], [employer]. Chloride [Moles/Vol] 108 mmol/L Normal 98 - 11 0 mmol/L [facility], [facility].; [place] [employer], [employer]. Cholesterol [Mass/Vol] 143 mg/dL Normal 125 - 200 mg/dL [facility] [facility].; [facility], [facility]. Cholesterol in HDL [Mass/Vol] 52 mg/dL Normal [facility].; [facility], [facility]. Cholesterol in LDL [Mass/Vol] 71 mg/dL Normal [facility], [facility].; [facility], [facility]. Cholesterol non HDL [Mass/Vol] 91 mg/dL Normal [facility], [facility].; [facility], [facility]. Cholesterol.total/Chol esterol in HDL [Mass ratio] 2.8 {ratio} Normal [facility].; [facility], [facility] CO2 [Moles/Vol] 24 mmol/L Normal 20 - 31 mmol/L [facility], [facility].; [facility], [facility]. Creatinine [Mass/Vol] 0.88 mg/dL Normal 0.60 - 1.35 mg/dL [facility], [facility].; [facility], [facility]. GFR/1.73 sq M.predicted among blacks MDRD (S/P/Bld) [Vol rate/Area] 119 {ML/MIN/1.73M2} Normal [facility], [facility].; [facility], [facility]. GFR/1.73 sq M.predicted MDRD (S/P/Bld) [Vol rate/Area] 102 {ML/MIN/1.73M2} Normal [facility], [facility].; [facility], [facility]. Globulin (S) [Mass/Vol] 2.6 g/dL Normal 1.9 - 3.7 g/dL [facility], [facility].; [facility], [facility]. Glucose [Mass/Vol] 105 mg/dL Abnormal 65 - 99 mg/dL [facility], [facility].; [facility], [facility]. Potassium [Moles/Vol] 4.3 mmol/L Normal 3.5 - 5.3 mmol/L [facility], [facility].; [facility], [facility]. Protein [Mass/Vol] 7.2 g/dL Normal 6.1 - 8.1 g/dL [facility], [facility].; [facility], [facility]. Sodium [Moles/Vol] 143 mmol/L Normal 135 - 146 mmol/L [facility], [facility].; [facility], [facility]. Triglyceride [Mass/Vol] 101 mg/dL Normal [facility].; [facility]. Urea nitrogen [Mass/Vol] 14 mg/dL Normal 7 - 25 mg/dL [facility].; [facility], [facility] Urea nitrogen/Creatinine [Mass ratio] 16.1 mg/mg Normal 6 - 22 [facility].; [facility], [facility] Laboratory - Hematology and Cell countson 01-19-2017 HbA1c (Bld) [Mass fraction] 6 % Normal 4.6 - 7.1 % [facility].; [facility], [facility]. Laboratory - Chemistry and C hemistry - challengeon 06-09-2016 Albumin [Mass/Vol] 4.9 g/dL Normal 3.6 - 5.1 g/dL [facility].; [facility], [facility] Albumin/Globulin [Mass ratio] 1.9 {ratio} Normal 1.0 - 2.5 [facility].; [facility] [facility]. ALP [Catalytic activity/Vol] 57 U/L Normal 40 - 115 U/L [facility].; [facility], [facility]. ALT [Catalytic activity/Vol] 30 U/L Normal 9 - 46 U/L [facility].; [facility], [facility]. AST [Catalytic activity/Vol] 19 U/L Normal 10 - 40 U/L [facility].; [place] [employer] [facility], [facility]. Bilirubin [Mass/Vol] 0.7 mg/dL Normal 0.2 - 1 .2 mg/dL [facility].; [facility], [facility]. Calcium [Mass/Vol] 9.9 mg/dL Normal 8.6 - 10. 3 mg/dL [facility], [facility].; [facility], [facility]. Chloride [Moles/Vol] 103 mmol/L Normal 98 - 11 0 mmol/L [facility].; [facility], [facility]. Cholesterol [Mass/Vol] 222 mg/dL Abnormal 125 - 200 mg/dL [facility], [facility].; [facility], [facility]. Cholesterol in HDL [Mass/Vol] 56 mg/dL Normal [facility], [facility].; [facility], [facility]. Cholesterol in LDL [Mass/Vol] 135 mg/dL Abnormal [facility].; [facility], [facility]. Cholesterol non HDL [Mass/Vol] 167 mg/dL Abnormal [facility] [facility].; [facility], [facility]. Cholesterol.total/Chol esterol in HDL [Mass ratio] 4.0 {ratio} Normal [facility], [facility].; [facility], [facility]. CO2 [Moles/Vol] 24 mmol/L Normal 20 - 31 mmol/L [facility], [facility].; [facility], [facility]. Creatinine [Mass/Vol] 0.94 mg/dL Normal 0.60 - 1.35 mg/dL [facility], [facility].; [facility], [facility]. GFR/1.73 sq M.predicted among blacks MDRD (S/P/Bld) [Vol rate/Area] 112 {ML/MIN/1.73M2} Normal [facility], [facility].; [facility], [facility]. GFR/1.73 sq M.predicted MDRD (S/P/Bld) [Vol rate/Area] 97 {ML/MIN/1.73M2} Normal [facility], [facility].; [place] [employer] [facility], [facility]. Globulin (S) [Mass/Vol] 2.6 g/dL Normal 1.9 - 3.7 g/dL [facility], [facility].; [facility], [facility]. Glucose [Mass/Vol] 81 mg/dL Normal 65 - 99 mg/dL [facility], [facility].; [place] [employer] [facility], [facility]. Potassium [Moles/Vol] 3.7 mmol/L Normal 3.5 - 5.3 mmol/L [facility], [facility].; [facility], [facility]. Protein [Mass/Vol] 7.5 g/dL Normal 6.1 - 8.1 g/dL [facility], [facility].; [place] [employer] [facility], [facility]. Sodium [Moles/Vol] 139 mmol/L Normal 135 - 146 mmol/L [facility], [facility].; [place] [employer] [facility], [facility]. Triglyceride [Mass/Vol] 155 mg/dL Abnormal [facility], [facility].; [facility], [facility]. Urea nitrogen [Mass/Vol] 17 mg/dL Normal 7 - 25 mg/dL [facility], [facility].; [facility] Urea nitrogen/Creatinine [Mass ratio] 17.8 mg/mg Normal 6 - 22 [facility] [facility].; [facility]. Laboratory - Hematology and Cell countson 06-09-2016 HbA1c (Bld) [Mass fraction] 6 % Normal 4.6 - 7.1 % [facility] [facility].; [facility], [facility]. Laboratory - Chemistry and C hemistry - challengeon 06-11-2015 Albumin [Mass/Vol] 4.8 g/dL Normal 3.6 - 5.1 g/dL [facility].; [place] [employer] [facility], [facility]. Albumin/Globulin [Mass ratio] 1.9 {ratio} Normal 1.0 - 2.5 [facility] [facility].; [facility]. ALP [Catalytic activity/Vol] 57 U/L Normal 40 - 115 U/L [facility].; [place] [employer] [facility], [facility]. ALT [Catalytic activity/Vol] 27 U/L Normal 9 - 46 U/L [facility].; [place] [employer] [facility], [employer]. AST [Catalytic activity/Vol] 14 U/L Normal 10 - 40 U/L [facility] [facility].; [place] [facility] [facility]. Bilirubin [Mass/Vol] 0.7 mg/dL Normal 0.2 - 1 .2 mg/dL [facility] [facility].; [place] [employer] [facility], [facility]. Calcium [Mass/Vol] 10.1 mg/dL Normal 8.6 - 10. 3 mg/dL [facility], [facility].; [place] [employer] [facility], [facility]. Chloride [Moles/Vol] 104 mmol/L Normal 98 - 11 0 mmol/L [facility] [facility].; [place] [employer], [facility]. Cholesterol [Mass/Vol] 151 mg/dL Normal 125 - 200 mg/dL [facility] [facility].; [place] [employer] [facility], [facility]. Cholesterol in HDL [Mass/Vol] 50 mg/dL Normal [facility] [facility].; [place] [employer] [facility], [facility]. Cholesterol in LDL [Mass/Vol] 73 mg/dL Normal [facility], [facility].; [place] [employer], [employer]. Cholesterol non HDL [Mass/Vol] 102 mg/dL Normal [facility] [facility].; [place] [employer] [facility], [facility]. Cholesterol.total/Chol esterol in HDL [Mass ratio] 3.0 {ratio} Normal [facility], [facility].; [facility], [facility]. CO2 [Moles/Vol] 28 mmol/L Normal 19 - 30 mmol/L [facility], [facility].; [facility], [facility]. Creatinine [Mass/Vol] 0.94 mg/dL Normal 0.60 - 1.35 mg/dL [facility], [facility].; [facility], [facility]. GFR/1.73 sq M.predicted among blacks MDRD (S/P/Bld) [Vol rate/Area] 113 {ML/MIN/1.73M2} Normal [facility], [facility].; [facility], [facility]. GFR/1.73 sq M.predicted MDRD (S/P/Bld) [Vol rate/Area] 98 {ML/MIN/1.73M2} Normal [facility], [facility].; [place] [employer] [facility], [facility]. Globulin (S) [Mass/Vol] 2.6 g/dL Normal 1.9 - 3.7 g/dL [facility], [facility].; [place] [employer] [facility], [facility]. Glucose [Mass/Vol] 106 mg/dL Abnormal 65 - 99 mg/dL [facility], [facility].; [place] [employer] [facility], [facility]. Potassium [Moles/Vol] 4.2 mmol/L Normal 3.5 - 5.3 mmol/L [facility], [facility].; [place] [employer] [facility], [facility]. Protein [Mass/Vol] 7.4 g/dL Normal 6.1 - 8.1 g/dL [facility], [facility].; [place] [employer], [facility]. Sodium [Moles/Vol] 140 mmol/L Normal 135 - 146 mmol/L [facility], [facility].; [place] [employer], [facility]. Triglyceride [Mass/Vol] 140 mg/dL Normal [facility], [facility].; [place] [employer], [facility]. Urea nitrogen [Mass/Vol] 16 mg/dL Normal 7 - 25 mg/dL [facility], [facility].; [place] [employer], [facility]. Urea nitrogen/Creatinine [Mass ratio] 16.7 mg/mg Normal 6 - 22 [facility], [facility].; [place] [employer], [employer]. Laboratory - Hematology and Cell countson 05-30-2015 HbA1c (Bld) [Mass fraction] 5.9 % Normal 4.6 - 7.1 % [facility] [facility].; [place] [employer] [facility], [employer]. Laboratory - Chemistry and C hemistry - challengeon 01-08-2015 Albumin [Mass/Vol] 4.8 g/dL Normal 3.6 - 5.1 g/dL [facility], [facility].; [place] [employer] [facility], [facility]. Albumin/Globulin [Mass ratio] 1.9 {ratio} Normal 1.0 - 2.5 [facility] [facility].; [place] [employer] [facility], [facility] ALP [Catalytic activity/Vol] 76 U/L Normal 40 - 115 U/L [facility].; [place] [employer] [facility], [facility]. ALT [Catalytic activity/Vol] 49 U/L Abnormal 9 - 46 U/L [facility].; [place] [employer] [facility], [employer]. AST [Catalytic activity/Vol] 21 U/L Normal 10 - 40 U/L [facility], [facility].; [place] [employer], [employer]. Bilirubin [Mass/Vol] 0.6 mg/dL Normal 0.2 - 1 .2 mg/dL [facility] [place] [facility].; [place] [employer], [employer]. Calcium [Mass/Vol] 9.7 mg/dL Normal 8.6 - 10. 3 mg/dL [facility] [facility].; [place] [employer], [employer]. Chloride [Moles/Vol] 104 mmol/L Normal 98 - 11 0 mmol/L [facility] [facility].; [place] [employer], [facility]. Cholesterol [Mass/Vol] 118 mg/dL Abnormal 125 - 200 mg/dL [facility] [facility].; [place] [employer], [employer]. Cholesterol in HDL [Mass/Vol] 45 mg/dL Normal [facility].; [place] [employer], [employer]. Cholesterol in LDL [Mass/Vol] 49 mg/dL Normal [facility].; [place] [employer], [employer]. Cholesterol non HDL [Mass/Vol] 73 mg/dL Normal [facility].; [place] [employer], [employer]. Cholesterol.total/Chol esterol in HDL [Mass ratio] 2.6 {ratio} Normal [facility], [facility].; [employer], [employer]. CO2 [Moles/Vol] 25 mmol/L Normal 19 - 30 mmol/L [facility] [place] [facility].; [facility], [facility]. Creatinine [Mass/Vol] 1.04 mg/dL Normal 0.60 - 1.35 mg/dL [facility] [place] [facility].; [facility], [facility]. GFR/1.73 sq M.predicted among blacks MDRD (S/P/Bld) [Vol rate/Area] 100 {ML/MIN/1.73M2} Normal [facility], [facility].; [facility], [facility]. GFR/1.73 sq M.predicted MDRD (S/P/Bld) [Vol rate/Area] 86 {ML/MIN/1.73M2} Normal [facility] [facility].; [place] [employer] [facility], [facility]. Globulin (S) [Mass/Vol] 2.4 g/dL Normal 1.9 - 3.7 g/dL [facility] [facility].; [place] [employer] [facility], [facility]. Glucose [Mass/Vol] 93 mg/dL Normal 65 - 99 mg/dL [facility] [facility].; [place] [employer] [facility], [facility] Potassium [Moles/Vol] 4.1 mmol/L Normal 3.5 - 5.3 mmol/L [facility] [place] [facility] [facility] [place] [employer], [facility]. Protein [Mass/Vol] 7.2 g/dL Normal 6.1 - 8.1 g/dL [facility], [facility].; [place] [employer], [facility]. Sodium [Moles/Vol] 141 mmol/L Normal 135 - 146 mmol/L [facility], [facility].; [place] [employer], [facility]. Triglyceride [Mass/Vol] 120 mg/dL Normal [facility].; [place] [employer], [facility]. Urea nitrogen [Mass/Vol] 12 mg/dL Normal 7 - 25 mg/dL [facility].; [place] [employer], [facility]. Urea nitrogen/Creatinine [Mass ratio] 11.3 mg/mg Normal 6 - 22 [facility].; [place] [employer], [facility]. Laboratory - Hematology and Cell countson 01-08-2015 HbA1c (Bld) [Mass fraction] 7.3 % Abnormal 4.6 - 7.1 % [facility].; [place] [employer], [facility]. Laboratory - Chemistry and C hemistry - challengeon 11-14-2014 Cholesterol [Mass/Vol] 213 mg/dL Abnormal 0 - 2 00 mg/dL [facility], [facility].; [facility], [facility]. Cholesterol in HDL [Mass/Vol] 41 mg/dL Normal 40 - 60 mg/dL [facility], [facility].; [facility], [facility]. Cholesterol in LDL [Mass/Vol] 132 mg/dL Abnormal 50.0 - 130.0 mg/dL [facility], [facility].; [facility], [facility]. Cholesterol in VLDL [Mass/Vol] - Normal [facility].; [place] [employer] [facility], [employer]. Cholesterol.total/Chol esterol in HDL [Mass ratio] - Normal 0 - 5.0 [facility], [facility].; [place] [employer], [employer]. Triglyceride [Mass/Vol] 198 mg/dL Abnormal 40 - 150 mg/dL [facility], [facility].; [place] [employer], [employer]. Laboratory - Chemistry and C hemistry - challengeon 11-13-2014 Albumin/Creatinine DL <= 20 mg/L (U) [Mass ratio] mg/g Normal [facility].; [place] [employer], [employer]. Creatinine (U) [Mass/Vol] 300 mg/dL Normal [facility].; [place] [employer], [employer]. Laboratory - Hematology and Cell countson 11-13-2014 HbA1c (Bld) [Mass fraction] 10 % Abnormal 4.6 - 7.1 % [facility].; [place] [employer], [facility]. Laboratory - Urinalysison Protein Ql (U) 80 mg/dL Normal [facility].; [place] [employer] Vital Signs Date Time Vital Sign Value Performing Clinician Facility 03-07-2025 09:22-0400 Body height 177.8 cm Ivy SALES Work Phone: [facility] 03-07-2025 09:22-0400 Body mass index (BMI) [Ratio] 39.9 kg/m2 Ivy SALES Work Phone: [facility] 03-07-2025 09:22-0400 Body temperature 97.2 [degF] Ivy SALES Work Phone: [facility] 03-07-2025 09:22-0400 Body weight 126.32 kg Ivy Julian PA Work Phone: [facility] 03-07-2025 09:22-0400 Diastolic blood pressure 84 mm[Hg] Ivy Julian PA Work Phone: [facility] 03-07-2025 09:22-0400 Heart rate 84 /min Ivy Julian PA Work Phone: [facility] 03-07-2025 09:22-0400 Respiratory rate 18 /min Ivy Julian PA Work Phone: [facility] 03-07-2025 09:220400 SaO2% (BldA) [Mass fraction] 98 % Ivy Julian PA Work Phone: [facility] 03-07-2025 09:22-0400 Systolic blood pressure 155 mm[Hg] Ivy Julian PA Work Phone: [facility] 01-18-2025 09:130400 Body height 180.34 cm Holli Sam LPN [facility], [facility] 01-18-2025 09:13-0400 Body mass index (BMI) [Ratio] 37.24 kg/m2 Holli Sam LPN [facility], [facility] [employer] [facility] 01-18-2025 09:13-0400 Body surface area Derived from formula 2.38 m2 Holli Sam LPN [facility] 01-18-2025 09:13-0400 Body weight 121.11 kg Holli Sam LPN [facility], [facility] [employer] [facility] 01-18-2025 09:13-0400 Diastolic blood pressure 71 mm[Hg] Holli Sam LPN [facility], [facility].; [employer] [facility] Comment on above: Patient Position: Sitting; Cuff Location : Left Arm; Cuff Size: Standard 01-18-2025 09:13-0400 Heart rate 67 /min Holli Sam LPN [facility], [employer]; [employer] [facility], [facility] Comment on above: Pattern: Regular 01-18-2025 09:13-0400 Systolic blood pressure 122 mm[Hg] Holli Sam LPN [facility], [facility].; [facility]. Comment on above: Patient Position: Sitting; Cuff Location : Left Arm; Cuff Size: Standard 06-20-2024 14:32-0400 Diastolic blood pressure 92 mm[Hg] IVY JULIAN Work Phone: [facility] 06-20-2024 14:32-0400 Heart rate 75 /min IVY JULIAN Work Phone: [facility] 06-20-2024 14:32-0400 Respiratory rate 17 /min IVY JULIAN Work Phone: [facility] 06-20-2024 14:32-0400 SaO2% (BldA) [Mass fraction] 95 % IVY JULIAN Work Phone: [facility] 06-20-2024 14:32-0400 Systolic blood pressure 156 mm[Hg] IVY JULIAN Work Phone: [facility] 06-20-2024 14:02-0400 Body temperature 97.3 [degF] IVY JULIAN Work Phone: [facility] 06-20-2024 10:12-0400 Body height 177.8 cm IVY JULIAN Work Phone: [facility] 06-20-2024 10:12-0400 Body mass index (BMI) [Ratio] 37.7 kg/m2 IVY JULIAN Work Phone: [facility] 06-20-2024 10:12-0400 Body weight 119.35 kg IVY JULIAN Work Phone: [facility] 06-06-2024 23:25-0400 Respiratory rate 18 /min IVY JULIAN Work Phone: [facility] 06-06-2024 22:43-0400 Body height 177.8 cm IVY JULIAN Work Phone: [facility] 06-06-2024 22:43-0400 Body weight 122.47 kg IVY JULIAN Work Phone: [facility] 06-06-2024 22:21-0400 Diastolic blood pressure 63 mm[Hg] IVY JULIAN Work Phone: [facility] 06-06-2024 22:21-0400 Heart rate 79 /min IVY JULIAN Work Phone: [facility] 06-06-2024 22:21-0400 SaO2% (BldA) [Mass fraction] 92 % IVY JULIAN Work Phone: [facility] 06-06-2024 22:21-0400 Systolic blood pressure 138 mm[Hg] IVY JULIAN Work Phone: [facility] 06-06-2024 18:33-0400 Body temperature 97.8 [degF] IVY JULIAN Work Phone: [facility] 12-29-2023 08:19-0400 Body height 180.34 cm Ivy Felton Julian PA-C Work Phone: [employer] 12-29-2023 08:19-0400 Body mass index (BMI) [Ratio] 36.82 kg/m2 Ivy J Julian PA-C Work Phone: [employer]. 12-29-2023 08:19-0400 Body surface area Derived from formula 2.37 m2 Ivy J Julian PA-C Work Phone: [employer].; [employer]. 12-29-2023 08:19-0400 Body weight 119.75 kg Ivy Purnima Julian PA-C Work Phone: [employer].; [employer]. 12-29-2023 08:19-0400 Diastolic blood pressure 70 mm[Hg] Ivy J Julian PA-C Work Phone: [employer]. Comment on above: Patient Position: Sitting; Cuff Location : Left Arm; Cuff Size: Standard 12-29-2023 08:19-0400 Heart rate 72 /min Ivy Panger PA-C Work Phone: [employer].; [employer]. Comment on above: Pattern: Regular 12-29-2023 08:19-0400 Systolic blood pressure 131 mm[Hg] Ivy Felton Julian PA-C Work Phone: [employer].; [employer]. Comment on above: Patient Position: Sitting; Cuff Location : Left Arm; Cuff Size: Standard 09-30-2023 08:02-0500 Body weight 119.3 kg Ivy Felton Julian PA-C Work Phone: [employer].; [employer]. 09-30-2023 08:02-0500 Diastolic blood pressure 70 mm[Hg] Ivy Felton Julian PA-C Work Phone: [employer].; [employer]. Comment on above: Patient Position: Sitting; Cuff Location : Left Arm; Cuff Size: Standard 09-30-2023 08:02-0500 Heart rate 74 /min Ivy Panger PA-C Work Phone: [employer].; [employer]. Comment on above: Pattern: Regular 09-30-2023 08:02-0500 Systolic blood pressure 132 mm[Hg] Ivy Felton Julian PA-C Work Phone: [employer].; [employer]. Comment on above: Patient Position: Sitting; Cuff Location : Left Arm; Cuff Size: Standard 07-08-2023 08:08-0400 Body height 180.34 cm Ivy Felton Julian PA-C Work Phone: [employer].; [employer]. 07-08-2023 08:08-0400 Body mass index (BMI) [Ratio] 37.94 kg/m2 Ivy Panger PA-C Work Phone: [employer].; [employer] [facility]. 07-08-2023 08:08-0400 Body surface area Derived from formula 2.4 m2 Ivy Felton Julian PA-C Work Phone: [employer].; [employer]. 07-08-2023 08:08-0400 Body weight 123.38 kg Ivy Panger PA-C Work Phone: [employer].; [employer] [facility]. 07-08-2023 08:08-0400 Diastolic blood pressure 79 mm[Hg] Ivy Panger PA-C Work Phone: [employer].; [employer]. Comment on above: Patient Position: Sitting; Cuff Location : Right Arm; Cuff Size: Standard 07-08-2023 08:08-0400 Heart rate 69 /min Ivy Panger PA-C Work Phone: [employer]; [employer]. Comment on above: Pattern: Regular 07-08-2023 08:08-0400 Systolic blood pressure 155 mm[Hg] Ivy Panger PA-C Work Phone: [employer].; [employer]. Comment on above: Patient Position: Sitting; Cuff Location : Right Arm; Cuff Size: Standard 12-31-2022 08:23-0400 Body height 180.34 cm Ivy Felton Julian PA-C Work Phone: [employer]; [employer]. 12-31-2022 08:23-0400 Body mass index (BMI) [Ratio] 36.82 kg/m2 Ivy Felton Julian PA-C Work Phone: [employer].; [employer]. 12-31-2022 08:23-0400 Body surface area Derived from formula 2.37 m2 Ivy Purnima Julian PA-C Work Phone: [employer].; [employer]. 12-31-2022 08:23-0400 Body temperature 98.4 [degF] Ivy Felton Julian PA-C Work Phone: [employer].; [employer]. 12-31-2022 08:23-0400 Body weight 119.75 kg Ivy Felton Julian PA-C Work Phone: [employer].; [employer]. 12-31-2022 08:23-0400 Diastolic blood pressure 80 mm[Hg] Ivy Purnima Julian PA-C Work Phone: [employer]; [employer]. Comment on above: Patient Position: Sitting; Cuff Location : Left Arm; Cuff Size: Standard 12-31-2022 08:23-0400 Heart rate 69 /min Ivy Felton Julian PA-C Work Phone: [employer]; [employer]. Comment on above: Pattern: Regular 12-31-2022 08:23-0400 Inhaled oxygen concentration 20 % Ivy Purnima Julian PA-C Work Phone: [employer]; [employer]. Comment on above: Room air 12-31-2022 08:23-0400 Inhaled oxygen concentration 21 % Ivy J Julian PA-C Work Phone: [employer]; [employer]. Comment on above: Room air 12-31-2022 08:23-0400 SaO2% (BldA) [Mass fraction] 99 % Ivy Purnima Julian PA-C Work Phone: [employer]; [employer]. 12-31-2022 08:23-0400 Systolic blood pressure 132 mm[Hg] Ivy J Julian PA-C Work Phone: [employer]; [employer]. Comment on above: Patient Position: Sitting; Cuff Location : Left Arm; Cuff Size: Standard 06-30-2022 08:11-0400 Body height 180.34 cm Ivy Purnima Julian PA-C Work Phone: [employer].; [employer]. 06-30-2022 08:11-0400 Body mass index (BMI) [Ratio] 36.26 kg/m2 Ivy Purnima Julian PA-C Work Phone: [employer]; [employer]. 06-30-2022 08:11-0400 Body surface area Derived from formula 2.36 m2 Ivy Purnima Julian PA-C Work Phone: [employer]; [employer]. 06-30-2022 08:11-0400 Body weight 117.94 kg Ivy Purnima Julian PA-C Work Phone: [employer].; [employer]. 06-30-2022 08:11-0400 Diastolic blood pressure 71 mm[Hg] Ivy J Julian PA-C Work Phone: [employer]; [employer]. Comment on above: Patient Position: Sitting; Cuff Location : Right Arm; Cuff Size: Standard 06-30-2022 08:11-0400 Heart rate 74 /min Ivy Purnima Julian PA-C Work Phone: [employer]; [employer]. Comment on above: Pattern: Regular 06-30-2022 08:11-0400 Systolic blood pressure 123 mm[Hg] Ivy J Julian PA-C Work Phone: [employer].; [employer]. Comment on above: Patient Position: Sitting; Cuff Location : Right Arm; Cuff Size: Standard 12-30-2021 08:22-0400 Body height 180.34 cm Ivy J Julian PA-C Work Phone: [employer].; [employer]. 12-30-2021 08:22-0400 Body mass index (BMI) [Ratio] 37.24 kg/m2 Ivy Panger PA-C Work Phone: [employer].; [employer]. 12-30-2021 08:22-0400 Body surface area Derived from formula 2.38 m2 Ivy Panger PA-C Work Phone: [employer].; [employer]. 12-30-2021 08:22-0400 Body weight 121.11 kg Ivy Panger PA-C Work Phone: [employer]; [employer]. 12-30-2021 08:22-0400 Diastolic blood pressure 74 mm[Hg] Ivy Panger PA-C Work Phone: [employer]; [employer]. Comment on above: Patient Position: Sitting; Cuff Location : Left Arm; Cuff Size: Standard 12-30-2021 08:22-0400 Heart rate 73 /min Ivy Panger PA-C Work Phone: [employer]; [employer]. Comment on above: Pattern: Regular 12-30-2021 08:22-0400 Systolic blood pressure 138 mm[Hg] Ivy Panger PA-C Work Phone: [employer]; [employer]. Comment on above: Patient Position: Sitting; Cuff Location : Left Arm; Cuff Size: Standard 07-01-2021 09:04-0400 Body height 180.34 cm Rosio Cabrera [employer] [facility] [employer].; [employer]. 07-01-2021 09:04-0400 Body mass index (BMI) [Ratio] 35.98 kg/m2 Rosio Cabrera LPN [employer]. 07-01-2021 09:04-0400 Body surface area Derived from formula 2.35 m2 Rosio Cabrera [employer].; [employer]. 07-01-2021 09:04-0400 Body weight 117.03 kg Rosio Lightach [employer] MAN [facility] [employer]. 07-01-2021 09:04-0400 Diastolic blood pressure 79 mm[Hg] Rosio Cabrera [facility], [facility].; [employer]. Comment on above: Patient Position: Sitting; Cuff Location : Left Arm; Cuff Size: Standard 07-01-2021 09:04-0400 Heart rate 73 /min Rosio Lightach [facility] [employer]. Comment on above: Pattern: Regular 07-01-2021 09:04-0400 Systolic blood pressure 131 mm[Hg] Rosio Lightach [employer] [facility].; [employer]. Comment on above: Patient Position: Sitting; Cuff Location : Left Arm; Cuff Size: Standard 12-31-2020 09:060400 Body height 180.34 cm Rosio Sultana Rick [facility] [employer] 12-31-2020 09:06-0400 Body mass index (BMI) [Ratio] 36.26 kg/m2 Rosio Sultana Rick [facility], [facility].; [employer] 12-31-2020 09:06-0400 Body surface area Derived from formula 2.36 m2 Rosio Sultana Rick [employer] [place] [employer] [facility], [facility].; [employer] 12-31-2020 09:060400 Body weight 117.94 kg Rosio Sultana Rick [facility] [employer] [facility], [facility].; [employer]. 12-31-2020 09:06-0400 Diastolic blood pressure 80 mm[Hg] Rosio Cabrera [facility].; [employer], [employer]. Comment on above: Patient Position: Sitting; Cuff Location : Left Arm; Cuff Size: Standard 12-31-2020 09:06-0400 Heart rate 71 /min Rosio Sheffieldlabach [employer] MAN [place] [employer] [facility], [employer]. Comment on above: Pattern: Regular 12-31-2020 09:06-0400 Systolic blood pressure 131 mm[Hg] Rosio Cabrera [employer] MAN [facility] [employer], [employer]. Comment on above: Patient Position: Sitting; Cuff Location : Left Arm; Cuff Size: Standard 07-02-2020 09:03-0400 Body height 180.34 cm Rosio Cabrera [facility] [place] [employer], [employer]. 07-02-2020 09:03-0400 Body mass index (BMI) [Ratio] 37.24 kg/m2 Rosio Cabrera [facility] [place] [employer], [employer]. 07-02-2020 09:03-0400 Body surface area Derived from formula 2.38 m2 Rosio Sultana Rick [facility], [facility].; [place] [employer], [employer]. 07-02-2020 09:03-0400 Body weight 121.11 kg Rosio Cabrera [facility] [employer], [facility].; [employer]. 07-02-2020 09:03-0400 Diastolic blood pressure 79 mm[Hg] Rosio Cabrera [facility] [employer], [facility].; [employer]. Comment on above: Patient Position: Sitting; Cuff Location : Right Arm; Cuff Size: Standard 07-02-2020 09:03-0400 Heart rate 76 /min Rosio Cabrera [facility].; [employer] Comment on above: Pattern: Regular 07-02-2020 09:03-0400 Systolic blood pressure 135 mm[Hg] Rosio Cabrera [facility] [employer]. Comment on above: Patient Position: Sitting; Cuff Location : Right Arm; Cuff Size: Standard 07-18-2019 08:59-0400 Body height 180.34 cm Anastasiya Crowley [employer] MAN [place] [employer] [facility], [facility].; [employer]. 07-18-2019 08:59-0400 Body mass index (BMI) [Ratio] 33.47 kg/m2 Anastasiya Crowley [facility] [employer] [facility], [facility].; [employer]. 07-18-2019 08:59-0400 Body surface area Derived from formula 2.28 m2 Anastasiya Huttonerd [employer] [place] [employer] [facility], [facility].; [employer] 07-18-2019 08:59-0400 Body weight 108.86 kg Anastasiya Weannia NAIR [place] [employer] [facility], [facility].; [place] 07-18-2019 08:59-0400 Diastolic blood pressure 72 mm[Hg] [facility]astasiyajuana Crowley [facility] [employer], Inc.; [place] Comment on above: Patient Position: Sitting; Cuff Location : Left Arm; Cuff Size: Standard 07-18-2019 08:59-0400 Heart rate 69 /min Anastasiyajuana Crowley [facility] [employer], [employer].; [place] Comment on above: Pattern: Regular 07-18-2019 08:59-0400 Systolic blood pressure 114 mm[Hg] Anastasiya Weannia NAIR [place] [employer], [employer] [place] Comment on above: Patient Position: Sitting; Cuff Location : Left Arm; Cuff Size: Standard 01-17-2019 09:03-0400 Body height 180.34 cm Anastasiyajuana Crowley LPN [facility] [employer], [employer].; [place] 01-17-2019 09:03-0400 Body mass index (BMI) [Ratio] 33.67 kg/m2 Anastasiyajuana Crowley [employer] [place] [employer], [employer].; [place] 01-17-2019 09:03-0400 Body surface area Derived from formula 2.28 m2 Anastasiya Crowley LPN [place] [employer] 01-17-2019 09:03-0400 Body weight 109.52 kg Anastasiya Weannia NAIR [place] [employer], [employer].; [place] 01-17-2019 09:03-0400 Diastolic blood pressure 84 mm[Hg] Anastasiya Keo NAIR [employer] [place] Comment on above: Patient Position: Sitting; Cuff Location : Left Arm; Cuff Size: Standard 01-17-2019 09:03-0400 Heart rate 68 /min Anastasiya Crowley LPN [facility] [employer]. Comment on above: Pattern: Regular 01-17-2019 09:03-0400 Systolic blood pressure 134 mm[Hg] Anastasiya Cookannia NAIR [facility], [facility] [place] [employer], [employer] Comment on above: Patient Position: Sitting; Cuff Location : Left Arm; Cuff Size: Standard 07-19-2018 09:11-0400 Body height 180.34 cm Anastasiya Weannia NAIR [facility] [employer], [employer]. 07-19-2018 09:11-0400 Body mass index (BMI) [Ratio] 33.77 kg/m2 Anastasiya Cookannia [facility] [employer] [facility], [facility].; [place] [employer], [employer] 07-19-2018 09:110400 Body surface area Derived from formula 2.29 m2 Anastasiya annia [facility] [employer] [facility], [facility].; [employer], [employer]. 07-19-2018 09:110400 Body weight 109.83 kg Anastasiya Weannia [facility], [facility].; [employer], [employer]. 07-19-2018 09:11-0400 Diastolic blood pressure 84 mm[Hg] Anastasiya Cookannia [facility] [employer] [facility], [facility].; [employer] Comment on above: Patient Position: Sitting; Cuff Location : Left Arm; Cuff Size: Standard 07-19-2018 09:11-0400 Heart rate 72 /min Anastasiya Weannia NAIR [place] [employer] [facility], [facility].; [employer], [employer]. Comment on above: Pattern: Regular 07-19-2018 09:11-0400 Systolic blood pressure 131 mm[Hg] Anastasiya Cookannia NAIR [place] [employer] [facility], [facility].; [employer], [employer]. Comment on above: Patient Position: Sitting; Cuff Location : Left Arm; Cuff Size: Standard 01-18-2018 09:00-0400 Body height 180.34 cm Ivy Julian PA-C Work Phone: [place] [employer] [facility].; [employer]. 01-18-2018 09:00-0400 Body mass index (BMI) [Ratio] 34.17 kg/m2 Ivy Panger PA-C Work Phone: [employer] 01-18-2018 09:00-0400 Body surface area Derived from formula 2.3 m2 Ivy Panger PA-C Work Phone: [employer]. 01-18-2018 09:00-0400 Body weight 111.13 kg Ivy Julian PA-C Work Phone: [employer]. 01-18-2018 09:00-0400 Diastolic blood pressure 82 mm[Hg] Ivy Panger PA-C Work Phone: [employer]; [employer]. Comment on above: Patient Position: Sitting; Cuff Location : Left Arm; Cuff Size: Standard 01-18-2018 09:00-0400 Heart rate 75 /min Ivy Julian PA-C Work Phone: [employer]; [employer]. Comment on above: Pattern: Regular 01-18-2018 09:00-0400 Systolic blood pressure 130 mm[Hg] Ivy Panger PA-C Work Phone: [employer]; [employer]. Comment on above: Patient Position: Sitting; Cuff Location : Left Arm; Cuff Size: Standard 07-20-2017 09:16-0400 Body height 180.34 cm Anastasiya Crowley LPN [employer]. 07-20-2017 09:16-0400 Body mass index (BMI) [Ratio] 33.75 kg/m2 Anastasiya Crowley LPN [employer] 07-20-2017 09:16-0400 Body surface area Derived from formula 2.29 m2 Anastasiya Crowley LPN [employer]. 07-20-2017 09:16-0400 Body weight 109.77 kg Anastasiya Crowley LPN [employer]. 07-20-2017 09:16-0400 Diastolic blood pressure 80 mm[Hg] Anastasiya Crowley LPN [employer] [facility].; [employer]. Comment on above: Patient Position: Sitting; Cuff Location : Left Arm; Cuff Size: Standard 07-20-2017 09:16-0400 Heart rate 73 /min Anastasiya Crowley LPN [employer] Comment on above: Pattern: Regular 07-20-2017 09:16-0400 Systolic blood pressure 121 mm[Hg] Anastasiya Crowley LPN [employer]. Comment on above: Patient Position: Sitting; Cuff Location : Left Arm; Cuff Size: Standard 01-19-2017 10:30-0400 Body height 180.34 cm Ivy Purnima Panger PA-C Work Phone: [employer]. 01-19-2017 10:30-0400 Body mass index (BMI) [Ratio] 33.89 kg/m2 Ivy Purnima Panger PA-C Work Phone: [employer]. 01-19-2017 10:30-0400 Body surface area Derived from formula 2.29 m2 Ivyfay Panger PA-C Work Phone: [employer]. 01-19-2017 10:30-0400 Body weight 110.22 kg Ivy Purnima Panger PA-C Work Phone: [employer].; [employer]. 01-19-2017 10:30-0400 Diastolic blood pressure 92 mm[Hg] Ivyfay Panger PA-C Work Phone: [employer].; [employer]. Comment on above: Patient Position: Sitting; Cuff Location : Left Arm; Cuff Size: Standard 01-19-2017 10:30-0400 Heart rate 73 /min Ivy Felton Eliel SMITH Work Phone: [place] [employer], [employer]. Comment on above: Pattern: Regular 01-19-2017 10:30-0400 Systolic blood pressure 142 mm[Hg] Ivy Felton Eliel SMITH Work Phone: [place] [employer], [employer].; [employer]. Comment on above: Patient Position: Sitting; Cuff Location : Left Arm; Cuff Size: Standard 06-09-2016 13:21-0400 Body height 180.34 cm Anastasiya Crowley LPN [place] [employer] [facility], [facility].; [employer]. 06-09-2016 13:21-0400 Body mass index (BMI) [Ratio] 32.91 kg/m2 [facility], Inc.; [place] 06-09-2016 13:21-0400 Body surface area Derived from formula 2.26 m2 Anastasiya Crowley LPN [place] [employer] [facility], [facility].; [place], [employer]. 06-09-2016 13:21-0400 Body weight 107.05 kg [facility]ley [facility] [employer] [place], [employer]. 06-09-2016 13:21-0400 Diastolic blood pressure 83 mm[Hg] Anastasiya Crowley LPN [employer] [place], [employer]. Comment on above: Patient Position: Sitting; Cuff Location : Left Arm; Cuff Size: Standard 06-09-2016 13:21-0400 Heart rate 74 /min Anastasiya Crowley LPN [employer], [employer]. Comment on above: Pattern: Regular 06-09-2016 13:21-0400 Systolic blood pressure 137 mm[Hg] Anastasiya Crowley LPN [employer], [employer].; [employer]. Comment on above: Patient Position: Sitting; Cuff Location : Left Arm; Cuff Size: Standard 05-30-2015 13:42-0400 Body height 180.34 cm Anastasiya Crowley LPN [place] [employer], [employer]. 05-30-2015 13:42-0400 Body mass index (BMI) [Ratio] 32.5 kg/m2 Anastasiya Keo NAIR [place] [employer] [facility], [facility].; [employer], [employer] 05-30-2015 13:42-0400 Body surface area Derived from formula 2.25 m2 Anastasiya Weannia NAIR [place] [employer] [facility], [facility].; [employer], [employer] 05-30-2015 13:42-0400 Body weight 105.69 kg Anastasiya Keo NAIR [place] [employer] [facility], [facility].; [employer], [employer]. 05-30-2015 13:42-0400 Diastolic blood pressure 80 mm[Hg] Anastasiya Keo [facility] [employer] [facility], [facility].; [employer], [employer] Comment on above: Patient Position: Sitting; Cuff Location : Left Arm; Cuff Size: Standard 05-30-2015 13:42-0400 Heart rate 68 /min Anastasiya Crowley LPN [place] [employer] [facility], [facility].; [employer], [employer]. Comment on above: Pattern: Regular 05-30-2015 13:42-0400 Systolic blood pressure 126 mm[Hg] Anastasiya Weannia NAIR [place] [employer] [facility].; [employer], [employer]. Comment on above: Patient Position: Sitting; Cuff Location : Left Arm; Cuff Size: Standard 01-08-2015 15:18-0400 Body height 180.34 cm Anastasiya Crowley LPN [place] [employer] [facility], [facility].; [employer], [employer] 01-08-2015 15:18-0400 Body mass index (BMI) [Ratio] 35.29 kg/m2 Anastasiya Keo NAIR [place] [employer] [facility], [facility].; Ehrn[employer], [employer]. 01-08-2015 15:18-0400 Body surface area Derived from formula 2.33 m2 Anastasiya Crowley LPN [place] [employer] [facility], [facility].; [employer], [employer] 01-08-2015 15:18-0400 Body weight 114.76 kg Anastasiya Keo NAIR [place] [employer] [facility], [facility].; [employer]. 01-08-2015 15:18-0400 Diastolic blood pressure 81 mm[Hg] Anastasiya Cookgaelverónica DROP BOARD MAN [facility], Inc.; [employer], [employer]. Comment on above: Patient Position: Sitting; Cuff Location : Left Arm; Cuff Size: Standard 01-08-2015 15:18-0400 Heart rate 74 /min Anastasiya Cookgaeld DROP BOARD MAN [facility], Inc.; [place], [employer] Comment on above: Pattern: Regular 01-08-2015 15:18-0400 Systolic blood pressure 132 mm[Hg] Anastasiya Cookgaeld DROP BOARD MAN [facility], Inc.; [place], [employer] Comment on above: Patient Position: Sitting; Cuff Location : Left Arm; Cuff Size: Standard 12-11-2014 15:54-0500 Body height 180.34 cm Anastasiya Cookannia NAIR [facility], Inc.; [employer] 12-11-2014 15:54-0500 Body mass index (BMI) [Ratio] 37.16 kg/m2 Anastasiya Weannia [facility], Inc.; [employer], [employer] 12-11-2014 15:54-0500 Body surface area Derived from formula 2.38 m2 Anastasiya Cookannia [facility] [employer], Inc.; [employer], [employer] 12-11-2014 15:54-0500 Body weight 120.86 kg Anastasiya Cookannia NAIR [place] [employer] [facility], [facility].; [employer], [employer] 12-11-2014 15:54-0500 Diastolic blood pressure 82 mm[Hg] Anastasiya Cookannia VALLESN [place] [employer] [facility], [facility].; [employer], [employer] Comment on above: Patient Position: Sitting; Cuff Location : Left Arm; Cuff Size: Standard 12-11-2014 15:54-0500 Heart rate 74 /min Anastasiya Cookgaeld DROP BOARD MAN [place] [employer] [facility].; [employer] Comment on above: Pattern: Regular 12-11-2014 15:54-0500 Systolic blood pressure 135 mm[Hg] Anastasiya Cookluigierd DROP BOARD MAN [place] [employer] [facility], [facility].; [place], [employer]. Comment on above: Patient Position: Sitting; Cuff Location : Left Arm; Cuff Size: Standard 11-13-2014 16:10-0500 Body height 180.34 cm Ivy Felton Julian PA-C Work Phone: [employer]. 11-13-2014 16:10-0500 Body mass index (BMI) [Ratio] 37.73 kg/m2 Ivy Felotn Julian PA-C Work Phone: [employer].; [employer]. 11-13-2014 16:10-0500 Body surface area Derived from formula 2.4 m2 Ivy Felton Julian PA-C Work Phone: [employer].; [employer]. 11-13-2014 16:10-0500 Body weight 122.7 kg Ivy Felton Julian PA-C Work Phone: [employer].; [employer]. 11-13-2014 16:10-0500 Diastolic blood pressure 91 mm[Hg] Ivy Purnima Julian PA-C Work Phone: [employer].; [employer]. Comment on above: Patient Position: Sitting; Cuff Location : Left Arm; Cuff Size: Standard 11-13-2014 16:10-0500 Heart rate 87 /min Ivy Felton Julian PA-C Work Phone: [employer]; [employer]. Comment on above: Pattern: Regular 11-13-2014 16:10-0500 Systolic blood pressure 147 mm[Hg] Ivy Felton Julian PA-C Work Phone: [employer].; [employer]. Comment on above: Patient Position: Sitting; Cuff Location : Left Arm; Cuff Size: Standard 01-24-2013 13:56-0400 Body height 180.34 cm Ivy eFlton Julian PA-C Work Phone: [employer].; [employer]. 01-24-2013 13:56-0400 Body mass index (BMI) [Ratio] 38.91 kg/m2 Ivy Panger PA-C Work Phone: [employer]; [employer]. 01-24-2013 13:56-0400 Body surface area Derived from formula 2.43 m2 Ivy Panger PA-C Work Phone: [employer]; [employer]. 01-24-2013 13:56-0400 Body temperature 99.7 [degF] Ivy Julian PA-C Work Phone: [employer]; [employer]. Comment on above: Method: Tympanic 01-24-2013 13:56-0400 Body weight 126.55 kg Ivy Julian PA-C Work Phone: [employer]; [employer]. 01-24-2013 13:56-0400 Diastolic blood pressure 89 mm[Hg] Ivy Julian PA-C Work Phone: [employer]; [employer]. Comment on above: Patient Position: Sitting; Cuff Location : Left Arm; Cuff Size: Standard 01-24-2013 13:56-0400 Heart rate 109 /min Ivy Julian PA-C Work Phone: [employer]; [employer]. Comment on above: Pattern: Regular 01-24-2013 13:56-0400 Inhaled oxygen concentration 20 % Ivy Panger PA-C Work Phone: [employer]; [employer]. Comment on above: Room air 01-24-2013 13:56-0400 Inhaled oxygen concentration 21 % Ivy Felton Julian PA-C Work Phone: [employer]; [employer]. Comment on above: Room air 01-24-2013 13:56-0400 SaO2% (BldA) [Mass fraction] 91 % Ivy Panger PA-C Work Phone: [employer]; [employer] 01-24-2013 13:560400 Systolic blood pressure 166 mm[Hg] Ivy Julian PA-C Work Phone: [employer].; [employer] [facility] Comment on above: Patient Position: Sitting; Cuff Location : Left Arm; Cuff Size: Standard Encounters Encounter Date Encounter Type Care Provider Facility Start: 04-16-2025 ambulatory Thaddeus Ro Facility :[facility] Start: 04-15-2025 Encounter for other preprocedural examination Thaddeus Ro [facility] Start: 03-07-2025 End: 03-07-2025 ambulatory Ivy Julian PA Work Phone: [facility] Work Phone: Start: 03-07-2025 End: 03-07-[address] Thaddeus Ro MD -Laboratory Specimen Work Phone: Start: 03-07-2025 End: 03-07-[address] Thaddeus Ro MD -[facility] Work Phone: Start: 03-07-2025 End: 03-07-2025 ambulatory Thaddeus Ro Facility:[facility] Start: 03-07-2025 End: 03-07-2025 ambulatory Thaddeus Ro Facility:[facility] Start: 03-01-2025 End: 03-01-2025 Orders Ivy Panger PA-C Work Phone: [employer]. Start: 02-27-2025 End: 02-27-2025 LEB Template Ivy Julian PA-C Work Phone: [employer]. Start: 02-21-2025 End: 02-21-2025 ambulatory IVY JULIAN [facility] Start: 01-21-2025 Review Ivy Panger PA-C Work Phone: [employer]. Start: 01-21-2025 End: 01-21-2025 Orders Ivy Panger PA-C Work Phone: [facility] Start: 01-21-2025 End: 01-21-2025 ambulatory IVY JULIAN [facility] Start: 01-18-2025 End: 01-18-2025 Office outpatient visit 25 minutes Ivy Julian PA-C Work Phone: [facility] Start: 08-13-2024 End: 08-13-2024 Patient encounter procedure IVY JULIAN Work Phone: [facility] Start: 08-13-2024 End: 08-13-2024 ambulatory IVY JULIAN Work Phone: [facility] Work Phone: Start: 07-02-2024 End: 07-02-2024 Patient encounter procedure IVY PANGER Work Phone: [facility] Start: 07-02-2024 End: 07-02-2024 [facility] Start: 06-20-2024 End: 06-20-2024 Admission to same day surgery center IVY JULIAN Work Phone: [facility] Start: 06-20-2024 End: 06-20-2024 ambulatory IVY JULIAN Work Phone: [facility] Work Phone: Start: 06-18-2024 End: 06-18-2024 Patient encounter procedure IVY JULIAN Work Phone: [facility] Start: 06-18-2024 End: 06-18-2024 ambulatory IVY JULIAN Work Phone: [facility] Work Phone: Start: 06-11-2024 End: 06-15-2024 [facility]:A Start: 06-11-2024 End: 06-11-2024 ambulatory [facility] Facility:[facility] Start: 06-11-2024 End: 06-11-2024 Patient encounter procedure [facility] Start: 06-08-2024 End: 06-08-2024 Telephone follow-up Ivy Panger PA-C Work Phone: [employer] Start: 06-06-2024 End: 06-06-2024 Emergency department patient visit IVY JULIAN Work Phone: [facility] Start: 12-29-2023 End: 12-29-2023 Patient encounter status Holli Samrico NAIR [employer]. Start: 12-29-2023 End: 12-29-2023 Periodic preventive med est patient 40-64yrs Ivy Julian PA-C Work Phone: [employer] Start: 09-30-2023 End: 09-30-2023 Office outpatient visit 25 minutes Ivy Julian PA-C Work Phone: [employer]. Start: 08-03-2023 End: 08-03-2023 Orders Ivy Julian PA-C Work Phone: [employer]. Start: 08-02-2023 End: 08-03-2023 Orders Ivy Julian PA-C Work Phone: [employer]. Start: 07-08-2023 End: 07-08-2023 Patient encounter procedure Ivy Julian PA-C Work Phone: [employer] Start: 12-31-2022 End: 12-31-2022 Patient encounter status Ivy Julian PA-C Work Phone: [employer]; [employer]. Start: 12-31-2022 End: 12-31-2022 Periodic preventive med est patient 40-64yrs Ivy Julian PA-C Work Phone: [employer] Start: 06-30-2022 End: 06-30-2022 Patient encounter procedure Ivy Julian PA-C Work Phone: [employer]. Start: 06-30-2022 End: 06-28-2022 Historical Summary Ivy Panger PA-C Work Phone: [employer]. Start: 06-11-2022 End: 06-11-2022 Orders Ivy Julian PA-C Work Phone: [employer]. Start: 01-01-2022 End: 01-01-2022 Orders Ivy Julian PA-C Work Phone: [employer]. Start: 12-30-2021 End: 12-30-2021 Patient encounter procedure Ivy Julian PA-C Work Phone: [employer]. Start: 12-30-2021 End: 12-30-2021 Patient encounter status Ivy Panger PA-C Work Phone: [employer].; [employer]. Start: 07-01-2021 End: 07-01-2021 Patient encounter procedure Ivy Julian PA-C Work Phone: [employer]. Start: 12-31-2020 End: 12-31-2020 Office outpatient visit 25 minutes Ivy Julian PA-C Work Phone: [employer]. Start: 07-02-2020 End: 07-02-2020 Office outpatient visit 25 minutes Ivy Julian PA-C Work Phone: [employer]. Start: 04-02-2020 End: 04-03-2020 Orders Ivy Julian PA-C Work Phone: [employer]. Start: 07-18-2019 End: 07-18-2019 Office outpatient visit 25 minutes Ivy Julian PA-C Work Phone: [employer]. Start: 01-17-2019 End: 01-17-2019 Office outpatient visit 25 minutes Ivy Julian PA-C Work Phone: [employer]. Start: 01-10-2019 End: 01-15-2019 Orders Ivy Julian PA-C Work Phone: [employer]. Start: 07-19-2018 End: 07-19-2018 Office outpatient visit 25 minutes Ivy Julian PA-C Work Phone: [employer]. Start: 01-18-2018 End: 01-18-2018 Office outpatient visit 25 minutes Ivy Julian PA-C Work Phone: [employer]. Start: 08-30-2017 End: 08-30-2017 Historical Summary Ivy Julian PA-C Work Phone: [employer]. Start: 07-20-2017 End: 07-20-2017 Office outpatient visit 25 minutes Ivy Julian PA-C Work Phone: [employer]. Start: 07-18-2017 End: 07-18-2017 Historical Summary Ivy Julian PA-C Work Phone: [employer]. Start: 01-19-2017 End: 01-19-2017 Office outpatient visit 25 minutes Ivy Julian PA-C Work Phone: [employer]. Start: 07-22-2016 End: 07-22-2016 Orders Ivy Julian PA-C Work Phone: [employer]. Start: 06-15-2016 End: 06-15-2016 Orders Ivy Julian PA-C Work Phone: [employer]. Start: 06-09-2016 End: 06-09-2016 Patient encounter procedure Ivy Julian PA-C Work Phone: [employer]. Start: 05-30-2015 End: 05-30-2015 Patient encounter procedure Ivy Julian PA-C Work Phone: [employer]. Start: 02-12-2015 End: 02-12-2015 Historical Summary Ivy Julian PA-C Work Phone: [employer] [facility] Start: 01-13-2015 End: 01-13-2015 Laboratory examination ordered as part of a routine general medical examination Ivy ARRINGTONC Work Phone: [facility].; [employer]. Start: 01-13-2015 End: 01-13-2015 Orders Ivy Julian PA-C Work Phone: [employer]. Start: 01-09-2015 End: 01-09-2015 Medication Ivy SALES-C Work Phone: [employer] [facility]. Start: 01-08-2015 End: 01-08-2015 Patient encounter procedure Ivy SALES-C Work Phone: [employer] [facility]. Start: 12-11-2014 End: 12-17-2014 Patient encounter procedure Ivy Julian PA-C Work Phone: [employer] [facility]. Start: 11-13-2014 End: 11-13-2014 Patient encounter procedure Ivy Julian PA-C Work Phone: [employer] [facility]. Start: 01-24-2013 End: 01-24-2013 Patient encounter procedure Ivy SALES-C Work Phone: [facility] Patient encounter status Negro Nino LPN [facility], [facility].; [facility], [facility]. Patient encounter status Negro Nino LPN [facility].; [employer] [facility]. Patient encounter status Ivy Julian PA-C Work Phone: [facility].; [employer] [facility]. Patient encounter status Holli Sam LPN [facility].; [employer] [facility], [facility]. Procedures Date Procedure Procedure Detail Performing Clinician Start: 01-18-2025 End: 01-21-2025 breast uni real time with image limited Ivy Julian PA-C Work Phone: Comment on above: Fim mass directly be hind nipple x 6 months Start: 06-20-2024 Laser, Holmium (Right) IVY JULIAN Work Phone: Start: 06-20-2024 Transurethral cystoscopy IVY JULIAN Work Phone: Start: 12-29-2023 End: 12-29-2023 Depression screening Ivy Julian PA -C Work Phone: Start: 12-29-2023 End: 12-29-2023 Scr dep neg, no plan reqd Ivy Pang er PA-C Work Phone: Start: 12-31-2022 End: 12-31-2022 Depression screening Ivy Julian PA -C Work Phone: Start: 12-31-2022 End: 12-31-2022 Scr dep neg, no plan reqd Ivy Pang er PA-C Work Phone: Start: 06-11-2022 End: 06-11-2022 FIT DNA test Negro Nino LPN Comment on above: Positive Finding. Start: 12-30-2021 End: 12-30-2021 Depression screening Ivy Panger PA -C Work Phone: Start: 12-30-2021 End: 06-11-2022 Oncology colorectal screening marisa 10 dna markrs Ivy Panger PA-C Work Phone: Start: 12-30-2021 End: 12-30-2021 Scr dep neg, no plan reqd Ivy Pang er PA-C Work Phone: Start: 07-01-2021 End: 07-01-2021 Lab findings surveillance Negro Noriega PN Comment on above: 105 CMP Start: 07-01-2021 End: 07-01-2021 Lipid panel Negro Nino LPN Comment on above: Normal. TC 142, HDL 48, LDL 72, Trig 140 Start: 07-02-2020 End: 07-02-2020 Flu immunize order/admin Ivy Pange r PA-C Work Phone: Start: 04-02-2020 End: 04-02-2020 Hemoglobin A1c/Hemoglobin.total in Blood Negro Nino KOREY Comment on above: 7.1 Start: 04-02-2020 End: 04-02-2020 UA P:C Ratio Negro Nino KOREY Comment on above: Normal. Start: 07-18-2019 End: 07-18-2019 Examination of retina Negro Nino KOREY Comment on above: Negative Finding. Re neeru-View in ofc, no diabetic retinopathy Start: 07-18-2019 End: 07-18-2019 Flu immunize order/admin Ivy Purnima Cadet r PA-C Work Phone: Start: 07-18-2019 End: 07-23-2019 Fundus photography w/interpretation & report Ivy Panger PA-C Work Phone: Start: 01-17-2019 End: 01-17-2019 Most recent hemoglobin a1c level < 7.0% Ivy Panger PA-C Work Phone: Start: 01-17-2019 End: 01-17-2019 Negative microalbuminuria test result doc&rev Ivy Felton Julian PA-C Work Phone: Start: 07-19-2018 End: 07-26-2018 Fundus photography w/interpretation & report Ivy Panger PA-C Work Phone: Start: 07-19-2018 End: 07-19-2018 Most recent hemoglobin a1c level < 7.0% Ivy Felton Julian PA-C Work Phone: Start: 01-18-2018 End: 01-18-2018 Most recent diastolic blood pressure < 80 mm hg Ivy Panger PA-C Work Phone: Start: 01-18-2018 End: 01-18-2018 Most recent hemoglobin a1c level < 7.0% Ivy Felton Julian PA-C Work Phone: Start: 01-18-2018 End: 01-18-2018 Most recent systolic blood pres>/equal 140 mm hg Ivy Felton Julian PA-C Work Phone: Start: 01-18-2018 End: 02-01-2018 Body mass index documented Ivy Purnima Arroyo christopher PA-C Work Phone: Start: 07-20-2017 End: 08-30-2017 Fundus photography w/interpretation & report Ivy Julian HENRRYSlava Work Phone: Start: 11-13-2014 End: 11-15-2014 Ecg routine ecg w/least 12 lds i&r only Ivy Julian SARAH Work Phone: Comment on above: Sinus rhythm. ST ember vation in inferior leads. 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 Start: 10-17-2014 End: 10-17-2014 Cardiac Catherization Rosio Cabrera [employer] BOARD MAN Start: 01-24-2013 End: 01-24-2013 No Known Past Surgical History Ivy Julian HENRRYSlava Work Phone: Plan of Treatment Date Care Activity Detail Author Start: 04-22-2025 Nursing evaluation o f patient and report Medical; Nurse visit - [id number] [employer]. Start: 22-Apr-2025 09:40-04:00 NURSE, FLOAT Appointment Request [employer]. Start: 04-16-2025 Hemoglobin glycosyla suman a1c Hgb A1c (fingerstick)([id number]) Start: 16-Apr-2025 14:39-04:00 Request [employer]; [employer]. Start: 01-18-2025 Assay of prostate specific antigen total PSA TOTAL (PROSTATE SPECIFIC ANTIGEN) ([id number]) Start: 18-Jan-2025 10:05-04:00 Request [employer].; [employer]. Start: 01-18-2025 Lipid panel LIPID PANEL ([id number]) Start: 18-Jan-2025 10:04-04:00 Request DNA [employer]; [employer]. Start: 01-18-2025 Comprehensive metabo lic panel CMP w/ GFR* ([id number]) Start: 18-Jan-2025 10:04-04:00 Request [employer].; [employer]. Start: 01-18-2025 Patient encounter procedure Medical; EXTENDED RTN - rtn & will be fasting [employer]. Start: 18-Jan-2025 09:10-04:00 SARAH Julian Appointment Request [employer]. Start: 01-18-2025 End: 01-18-2025 Us breast uni real time with image limited Breast US, Unilateral Complete, Left ([id number]) Date: 18-Jan-2025 Comments: Fim mass directly behind nipple x 6 months [employer]. Comment on above: Fim mass directly be hind nipple x 6 months Start: 06-20-2024 [facility] Start: 12-29-2023 Urine albumin quantitative MICROALBUMIN, RAND URINE W/ CREAT [uACR] ([id number]) ([id number]) Start: 29-Dec-2023 08:58-04:00 Request [employer].; [employer]. Start: 12-29-2023 Assay of prostate specific antigen total PSA TOTAL (PROSTATE SPECIFIC ANTIGEN) ([id number]) Start: 29-Dec-2023 08:57-04:00 Request [employer].; [employer]. Start: 12-29-2023 Patient encounter procedure Medical; PHYSICAL - AWV + fasting labs [employer]. Start: 29-Dec-2023 8:20 SARAH Julian Appointment Request [employer] Calculus analysis [facility] Determination of sto ne composition [facility] Evaluation procedure [facility] Measurement of weigh t of calculus [facility] NM Lymph node Views [facility] Patient Education [facility] Work Phone: Patient referral [facility] Work Phone: Immunizations Immunization Date Immunization Notes Care Provider Fa franko 07-02-2020 influenza, injectabl e, quadrivalent, contains preservative Ivy Julian PA-C Work Phone: [facility] [employer].; [employer]. Comment on above: Site: Right DeltoidV IS Given: * Influenza - Inactivated (05/23/15) 07-18-2019 influenza, injectabl e, quadrivalent, contains preservative Ivy Julian PA-C Work Phone: [email or web address]; [employer] Comment on above: Site: Left DeltoidVI S Given: * Influenza - Inactivated (05/23/15) 07-19-2018 influenza, injectabl e, quadrivalent, contains preservative Ivy Julian PA-C Work Phone: [employer].; [employer] Comment on above: Site: Right DeltoidV IS Given: * Influenza - Inactivated (05/23/15) 07-20-2017 influenza, injectabl e, quadrivalent, contains preservative Ivy Julian PA-C Work Phone: [employer]; [employer] Comment on above: Site: Deltoid (Left) VIS Given: * Influenza - Inactivated (05/23/15) Payers Date Payer Category Payer Unknown [id number] 2024 Self-pay 1970 Unknown [id number] 1970 Unknown [id number] 1970 Unknown [id number] Unknown [id number] [id number] [id number] 1970 Unknown [id number] 2.16.8 [id number] Unknown [id number] 2.16.8 [id number] Unknown [id number] 2.16.8 [id number] Unknown [id number] 2.16.8 [id number] Unknown [id number] 2.16.8 [id number] Unknown [id number] 2.16.8 [id number] Unknown [id number] 2.16.8 [id number] Unknown [id number] 2.16.8 [id number] Unknown [id number] 2.16.8 [id number] Social History Date Type Detail Facility Caffeine Use [facility]affeine [facility] [employer] Current Work/Study Status: Current Work/Study Status: ; Full-time. [place] [facility] [place] Causes Tobacco Use: Tobacco Use: ; F ormer smoker. [place] [employer] [facility] [employer] Start: 1970 Male [facility] Full-time [place] [employer] [facility]; [employer] Work Phone: Smokes tobacco daily [employer]; [employer] Work Phone: Start: 06-11-2024 End: 03-07-2025 Ex-smoker [facility] Sex Assigned At Sex [facility] Start: 06-06-2024 No No [facility] Start: 06-18-2024 End: 07-02-2024 Sex Male (finding) [facility] Start: 06-20-2024 Yes Yes [facility] Medical Equipment Procedure Code Equipment Code Equipment Origin al Text Equipment Identifier Dates Cystourethroscopy, diagnostic, with ureteroscopy STENT OPTIMA 6 X 28 FDA Start: 06-20-2024 Cystourethroscopy, diagnostic, with ureteroscopy STENT OPTIMA 6 X 28 FDA Start: 06-20-2024 Goals Date Patient Goal Desired Activity /State Functional Status Date Assessment Result Facility 06-20-2024 Functional status Appropriate;Clear [facility] Work Phone: 06-20-2024 Functional status None [facility] Work Phone: 06-06-2024 Functional status Speech Pattern Appropri ate [facility] Work Phone: 06-06-2024 Functional status Normal [facility] Work Phone: Mental Status Date Assessment Result Facility 06-20-2024 Cognitive function No [facility] Work Phone: 06-06-2024 Cognitive function Mood Description Adjus samanta 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 [address] [address] Operative Report Signed Patient: YEMI SALEH MR#: [id number] : 1970 Acct:[id number] Age/Sex: 53 / M ADM Date: Loc: OR Date of Service: 4 Clinician: Lakesha Bradford MD cc: None, Date of procedure: 06/20/24 Pre-op diagnosis: 10 mm proximal right ureteral stone Post-op diagnosis: same Operative Procedure: Cystoscopy right retrograde pyelogram right rigid ureteroscopy holmium laser lithotripsy stone basketing stent placement Implants: Yes (6 x 28 double-J stent) Findings: 53-year-old male with a history of right flank pain is found to have a 10 mm proximal right ureteral stone presents for ureteroscopy holmium laser lithotripsy risk of the procedure detail the patient including not limited to failure to control stone need for subsequent treatment bleeding infection injuryto kidney injury ureter cardiopulmonary complication sepsis and Very tight distal ureter Patient brought operating room placed in dorsolithotomy position prepped draped normal sterile fashion. 21 Tunisian cystoscope passed per urethra and the bladder. The (right) ureteral orifice was intubated with a 5 Tunisian open-ended catheter retrograde pyelogram was performed. Wire passed into the kidney under direct and fluoroscopic guidance. Dual-lumen ureteral catheter was then passed over the wire and a second wire was passed in the kidney and direct fluoroscopicguidance. Semirigid ureteroscope was passed over the second wire to the area ofthe stone. The wire was removed from the scope. (365) Micrometer laser fiber was then used to fragment the stone into multiple small pieces. Flat wire basket was then used to retrieve pieces. Ureteroscope was removed cystoscope was replaced over the first wire and a stent was placed with good curl in the kidney as well as the bladder patient's bladder was emptied and awakened returned recovery room Specimens Removed: Yes (Stones) Discharge Plan Discharge Instructions Additional Instructions: Follow-up 2 weeks with [facility] for stent removal Prescriptions and Medication Reconciliation: New acetaminophen-codeine [acetaminophen-codeine] 300-30 mg tablet 1 tab PO Q4HP 3 Days Qty: 15 0RF cephalexin 500 mg capsule 500 mg PO Q6HR 5 Days Qty: 20 0RF No Action pravastatin 40 mg Tablet 40 mg PO QDAY clopidogrel 75 mg Tablet 75 mg PO QDAY Patient Comments: PCM told pt to hold 7 days preop carvedilol 3.125 mg Tablet 3.125 mg PO BID Rx Instructions: must administer with a meal/food metformin 1,000 mg Tablet 1,000 mg PO BID Patient Comments: PCM told pt to hold 24hrs preop aspirin 81 mg Tablet 81 mg PO QDAY Patient Comments: PCM told pt to hold 7 days preop glipizide 5 mg Tablet 5 mg PO QDAY Patient Comments: PCM told pt to hold 24hrs preop Print Language Print Language: French Documented By: Lakesha Bradford MD 06/19/24 1114 Signed By: 06/20/[address] [facility] Work Phone: Clinical Note 06-13-2024 Note Date & Type Note Facility 06-13-2024 Note . MICRO - Microbiology PROCEDURE: Urine Culture [*1] SOURCE: Urine, Clean Catch BODY SITE: COLLECTED DATE/TIME: 06/11/2024 12:00 EDT RECEIVED DATE/TIME: 06/11/2024 18:32 EDT START DATE/TIME: 06/11/2024 18:32 EDT FREE TEXT SOURCE: FINAL REPORTS Final Report [] Verified Date/Time/Personnel: 06/13/2024 07:37 EDT No growth to date PRELIMINARY REPORTS Preliminary Report [] Verified Date/Time/Personnel: 06/12/2024 09:47 EDT No growth to date Performing Locations *1: This test was performed at: [facility], [address] [place] [address], [facility] , [facility] ([place]) Evaluation + Plan note 06-11-2024 Laboratory Note Date & Type Note Facility 06-11-2024 Evaluation + Plan note Future Scheduled TestsBasic Metabolic Panel 06/11/24Complete Blood Count 06/11/24 [facility] Evaluation note Note Date & Type Note Facility Evaluation note [facility] Narrative Note Date & Type Note Facility Hospital course Narrative No data available for this section [facility] Hospital Discharge instructions Note Date & Type Note Facility Hospital Discharge instructions No data available for this section [facility] Hospital Discharge instructions Note Date & Type Note Facility Hospital Discharge instructions Additional Instructions Follow-up 2 weeks with [facility] for stent removal [facility] Work Phone: Progress note Note Date & Type Note Facility Progress note No data available for this section [facility] Reason for referral (narrative) Note Date & Type Note Facility Reason for referral (narrative) No reason for referral information available [facility] Work Phone: Family History No Family History Records Found Lung Cancer Status:Active Comments:Paterna l Grandfather. Lung Cancer Status:Active Comments:Paterna l Grandfather. Lung Cancer Status:Active Comments:Paterna l Grandfather. Lung Cancer Status:Active Comments:Paterna l Grandfather. Lung Cancer Status:Active Comments:Paterna l Grandfather. Lung Cancer Status:Active Comments:Paterna l Grandfather. Lung Cancer Status:Active Comments:Paterna l Grandfather. Lung Cancer Status:Active Comments:Laura noriega Grandfather. Lung Cancer Status:Active Comments:Laura noriega Grandfather. Relationship Condition Age at Onset Recorded Date/T cyn Unknown Family Anesthesia Reaction?No Unknown June 15, 2024 4:32pm Relationship Condition Age at Onset Recorded Date/T cyn Unknown Family Anesthesia Reaction?No Unknown June 20, 2024 10:07am Lung Cancer Status:Active Comments:Laura noriega Grandfather. Lung Cancer Status:Active Comments:Laura noriega Grandfather. Lung Cancer Status:Active Comments:Laura noriega Grandfather. Lung Cancer Status:Active Comments:Laura noriega Grandfather. Lung Cancer Status:Active Comments:Laura noriega Grandfather. Prostate Cancer Status:Active Comments:Father. Diagnosed in late 60s/early 70s Lung Cancer Status:Active Comments:Laura noriega Grandfather. Prostate Cancer Status:Active Comments:Father. Diagnosed in late 60s/early 70s Lung Cancer Status:Active Comments:Laura noriega Grandfather. Prostate Cancer Status:Active Comments:Father. Diagnosed in late 60s/early 70s Lung Cancer Status:Active Comments:Laura noriega Grandfather. Prostate Cancer Status:Active Comments:Father. Diagnosed in late 60s/early 70s Lung Cancer Status:Active Comments:Laura noriega Grandfather. Prostate Cancer Status:Active Comments:Father. Diagnosed in late 60s/early 70s Lung Cancer Status:Active Comments:Laura noriega Grandfather. Prostate Cancer Status:Active Comments:Father. Diagnosed in late 60s/early 70s Lung Cancer Status:Active Comments:Laura noriega Grandfather. Prostate Cancer Status:Active Comments:Father. Diagnosed in late 60s/early 70s Lung Cancer Status:Active Comments:Laura noriega Grandfather. Prostate Cancer Status:Active Comments:Father. Diagnosed in late 60s/early 70s Summary Purpose Advance Directives No Advanced Directives Records Found Advance Directive Response Recorded Date/ Time Advance Directives No June 15, 2024 4:32pm Organ Donor No June 06 5:26pm Power of Sales Representative Wire Rope No June 15, 2 024 4:32pm Tissue Donor No June 06 5:26pm Advance Directive Response Recorded Date/ Time Advance Directives No June 10:07am Organ Donor No [place] [address], 202 4 5:26pm Power of Sales Representative Wire Rope No June 20, 2024 10:07am Tissue Donor No June 06 5:26pm Chief Complaint and Reason for Visit Chief Complaint Admit Date ABDOMINAL PAIN June 06, 2024 4: 09pm XRAY June 18, 2024 8:12am Chief Complaint Admit Date ABDOMINAL PAIN June 06, 2024 4: 09pm XRAY June 18, 2024 8:12am pCYSTOSCOPY-URETEROSCOPY, sCYSTOSCOPY RI T June 20, 2024 8:48am Chief Complaint Admit Date ABDOMINAL PAIN June 06, 2024 4: 09pm XRAY June 18, 2024 8:12am pCYSTOSCOPY-URETEROSCOPY, sCYSTOSCOPY RI T June 20, 2024 8:48am XRAY July 02, 2024 10:36am XRAY August 13, 2024 1 0:22am Chief Complaint Admit Date ABDOMINAL PAIN June 06, 2024 4: 09pm XRAY June 18, 2024 8:12am pCYSTOSCOPY-URETEROSCOPY, sCYSTOSCOPY RI T June 20, 2024 8:48am XRAY July 02, 2024 10:36am Chief Complaint Admit Date BREAST CANCER- SELF PAY - DISCUSS OPTION S March 07, 2025 8:58am L FOREARM BIOPSY March 07, 2025 2:57p m Reason for Visit Admit Date Invasive ductal carcinoma of left male b reast March 07, 2025 8:58am Mass of left forearm March 07, 2025 8:58 am Additional Source Comments Patient Care team informatio n (unrecognized section and content) Team Status: Active Member Role Status Dates IVY JULIAN Primary Care Provider Active Team Status: Inactive Member Role Status Dates ELIEL MERCEDES Primary Care Provider Active Sta rt: June 06, 2024 End: June 06, 2024 Yang Ibanez DO Emergency Provider Active St art: June 06, 2024 End: June 06, 2024 Obdulio Shipley MD Attending Provider Active St art: June 06, 2024 Team Status: Inactive Member Role Status Dates ELIEL MERCEDES Primary Care Provider Active Sta rt: June 18, 2024 End: June 18, 2024 Lakesha Bradford MD Attending Provider Active Start: June 18, 2024 End: June 18, 2024 Team Status: Inactive Member Role Status Dates ELIEL MERCEDES Primary Care Provider Active Sta rt: June 20, 2024 End: June 20, 2024 Lakesha Bradford MD Attending Provider Active Start: June 20, 2024 End: June 20, 2024 Team Status: Inactive Member Role Status Dates IVY JULIAN Primary Care Provider Active Sta rt: June 18, 2024 End: June 18, 2024 Lakesha Bradford MD Attending Provider Active Start: June 18, 2024 End: June 18, 2024 Obdulio Shipley MD Attending Provider Active St art: June 18, 2024 Team Status: Inactive Member Role Status Dates IVY, JULIAN Primary Care Provider Active Sta rt: July 02, 2024 End: July 02, 2024 Lakesha Bradford MD Attending Provider Active Start: July 02, 2024 End: July 02, 2024 Obdulio Shipley MD Attending Provider Active St art: July 02, 2024 Team Status: Inactive Member Role Status Dates IVYPOLY APONTEER Primary Care Provider Active Sta rt: August 13, 2024 End: August 13, 2024 Lakesha Bradford MD Attending Provider Active Start: August 13, 2024 End: August 13, 2024 Team Status: Inactive Member Role Status Dates IVY JULIAN Primary Care Provider Active Sta rt: July 02, 2024 End: July 02, 2024 Lakesha Bradford MD Attending Provider Active Start: July 02, 2024 End: July 02, 2024 Team Status: Active Member Role Status Dates Ivy SALES PA Primary Care Provider Active Team Status: Inactive Member Role Status Dates Ivy Julian PA, PA Primary Care Provider Active Start: March 07, 2025 End: March 07, 2025 Ivy SALES PA Referring Provider Active Start: March 07, 2025 End: March 07, 2025 Dr. Thaddeus Ro MD Attending Provider Active Start: March 07, 2025 End: March 07, 2025 Team Status: Inactive Member Role Status Dates Ivy SALES PA Primary Care Provider Active Start: March 07, 2025 End: March 07, 2025 Dr. Thaddeus Ro MD Attending Provider Active Start: March 07, 2025 End: March 07, 2025 Dr. Thaddeus Ro MD Referring Provider Active Start: March 07, 2025 End: March 07, 2025 (unrecognized sect ion and content) No Status Records FoundNo Status Records FoundNo Status Records FoundNo Status Records FoundNo Status Records FoundNo Status Records Found INFORMATION SOURCE (unrecogn ized section and content) DATE CREATED AUTHOR 06/16/2024 [facility] ([place]) DATE CREATED AUTHOR AUTHOR'S ORGANIZ ATION 08/23/2024 [facility] ([place]) DATE CREATED AUTHOR AUTHOR'S ORGANIZ ATION 01/24/2025 [facility] DATE CREATED AUTHOR AUTHOR'S ORGANIZ ATION 02/26/2025 [facility] DATE CREATED AUTHOR AUTHOR'S ORGANIZ ATION 03/06/2025 [facility] DATE CREATED AUTHOR AUTHOR'S ORGANIZ ATION 04/15/2025 [facility] Goals (unrecognized section and content) Goals may be documented in a n alternate section FOR RECORDS PERTAINING TO PATIENTS WHO ARE OR HAVE BEEN ENROLLED IN A CHEMICAL DEPENDENCY/SUBSTANCEABUSE PROGRAM, SOME INFORMATION MAY BE OMITTED. This clinical summary was aggregated from multiple sources. Caution should be exercised in using it in the provision of clinical care. This summary normalizes information from multiple sources, and as a consequence, information in this document may materially change the coding, format and clinical context of patient data. In addition, data may be omitted in some cases. CLINICAL DECISIONS SHOULD BE BASED ON THE PRIMARY CLINICAL RECORDS. [place] [employer] [facility]. provides no warranty or guarantee of the accuracy or completeness of information in this document.
[2025-04-17 02:06] VITALS: BP 158/80; PULSE 89; RESP 18; TEMP 36.8; O2SAT 97
[2025-04-17 02:07] VITALS: BP 151/82; PULSE 82
[2025-04-17 05:17] VITALS: BP 159/83; PULSE 91; RESP 16; TEMP 36.8; O2SAT 95
[2025-04-17 06:05] LABS: Hematocrit 37.4 % (40-54); Hemoglobin 12.3 g/dL (13.0-16.5)
[2025-04-17] MEDS: 0.9% Normal Saline (1000mL) 1,000 ML 100 ML IV (08:28)
[2025-04-17 08:44] VITALS: BP 128/61; PULSE 82; RESP 18; TEMP 37.1; O2SAT 95
--- NOTE | 2025-04-17 09:21 | PN.SURG_ITS ---
Subjective Subjective Patient seen evaluated on rounds this morning. Was notified overnight of patient becoming somewhat dizzy with some bloody drainage from MONSERRAT drain. Overnight he was placed on IV fluids and does feel less dizzy this morning. Blood sugars remain in the 300s despite insulin sliding scale. Patient did have about of 2 g hemoglobin drop from his preoperative H&H. Objective Data Objective Data Vital Signs: Vital Signs Temp Pulse Resp BP Pulse Ox O2 Del Method O2 Flow Rate 98.7 F 82 18 128/61 H 95 Room Air 2 04/17/25 08:44 04/17/25 08:44 04/17/25 08:44 04/17/25 08:44 04/17/25 08:44 04/17/25 08:44 04/16/25 14:54 Oxygen Flow Rate (L/min) 2 Oxygen Delivery Method Room Air Weight: 275 lb 9.245 oz Body Mass Index (BMI) 39.5 Intake & Output: Intake and Output for Last 24 Hours 04/15/25 04/16/25 04/17/25 23:59 23:59 23:59 Intake Total 2125.5 / 2125.5 1886.67 / 1886.67 Output Total 425 / 425 555 / 555 Balance 1700.5 / 1700.5 1331.67 / 1331.67 Lab / Micro Data 04/17/25 05:15 04/09/25 07:45 Labs: Laboratory Results - last 24 hr 04/16/25 09:53: POC Glucose 247 H 04/16/25 14:38: POC Glucose 312 H 04/16/25 20:29: POC Glucose 382 H 04/16/25 22:39: POC Glucose 360 H 04/17/25 05:15: Hgb 12.3 L, Hct 37.4 L 04/17/25 06:21: POC Glucose 309 H Radiography Diagnostic Testing: Radiology Impression [place] Node 04/16/25 09:32 IMPRESSION: Intradermal injection Lymphoseek in the left breast for sentinel node imaging. Reading Location: [facility] Physical Exam Narrative He is alert and oriented x 3. He is in no acute distress. Almas wrap clean dry and intact. The Mepilex dressing with some shadowing of blood. There is some mild swelling to the lateral aspect of the chest/axillary region with some bruising. MONSERRAT drains with dark somewhat bloody fluid in the tubing. The tubing was stripped. 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 Overnight patient seemed to have developed some postoperative bleeding. Clinically this seems stable however we will continue to monitor very closely. Will repeat H&H around noon today. Patient was switched to a low-carb diet and insulin sliding scale switched to a high dose regimen. Will get patient up and ambulate today. Will continue to monitor closely. I do not anticipate need for repeat surgery at this point however will again monitor very closely and check H&H later today All questions and concerns were addressed
--- NOTE | 2025-04-17 11:43 | CASEMGMT ---
RN CM to pt room to discuss DC planning. Pt's spouse at bedside. Pt states that he was able to ambulate well today and denies any DC concerns or needs. Pt and pt state that they feel comfortable caring for the MONSERRAT at home and state that they have the education needed. Pt states that she recently got done caring for the MONSERRAT. Pt and pt deny further questions or concerns now.
[2025-04-17 12:04] VITALS: BP 139/68; PULSE 82; RESP 18; TEMP 36.9; O2SAT 94
[2025-04-17 12:08] LABS: Hematocrit 35.9 % (40-54); Hemoglobin 11.6 g/dL (13.0-16.5)
[2025-04-17 14:58] VITALS: BP 148/62; PULSE 85; RESP 18; TEMP 37; O2SAT 96
--- NOTE | 2025-04-17 15:10 | PCM.DC.SUM ---
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 Overnight patient seemed to have developed some postoperative bleeding. Clinically this seems stable however we will continue to monitor very closely. Will repeat H&H around noon today. Patient was switched to a low-carb diet and insulin sliding scale switched to a high dose regimen. Will get patient up and ambulate today. Will continue to monitor closely. I do not anticipate need for repeat surgery at this point however will again monitor very closely and check H&H later today All questions and concerns were addressed Medications at Discharge Home Medications aspirin 81 mg tablet,delayed release (Adult Aspirin Regimen) 81 mg PO QDAY 03/07/25 atorvastatin 40 mg tablet 40 mg PO QPM 03/07/25 carvedilol 3.125 mg tablet 3.125 mg PO BID 03/07/25 clopidogrel 75 mg tablet 75 mg PO QDAY 03/07/25 Held on 04/17/25. Instructions: Resume on 04/22/25. glipizide 10 mg tablet, extended release 24 hr 10 mg PO QDAY 03/07/25 metformin 1,000 mg tablet 1,000 mg PO BID 03/07/25 rosuvastatin 10 mg tablet (Crestor) 10 mg PO QDAY 03/07/25 oxycodone-acetaminophen 5 mg-325 mg tablet (Percocet) 1 tab PO Q8H PRN pain 3 days #7 tabs 04/17/25 Hospital Course Operations - (Left mastectomy with sentinel lymph node biopsy) Summary of Care Provided Minutes Spent on Discharge: 20 Hospital Course: The patient is a 54-year-old male who was seen in the office recently with a biopsy-proven left breast cancer. We discussed mastectomy and sentinel lymph node biopsy as well as excision of a left forearm mass. Surgery was performed yesterday. He tolerated the surgery well. Patient was admitted overnight for routine observation. Overnight did become dizzy and it was noted that his MONSERRAT drains did follow-up with some blood and clot. He did develop a hematoma. This morning he was given fluids and is feeling much better. Hemoglobin is stabilized. MONSERRAT drain output has gone down considerably. In a postop bleeding has likely tamponade. I gave patient the option of staying 1 more night for observation versus discharge home. He states he would rather go home. He states that he will stay with his daughter and son-in-law nearby. Otherwise pain is well-controlled. Physical Exam Narrative He is alert and oriented x 3. He is in no acute distress. Examination of the operative site reveals a clean dry and an Almas wrap. There is moderate bruising and mild swelling to the left axilla. The MONSERRAT drains are putting out either serosanguineous or bloody fluid. No bright red blood. No expanding hematoma Const no apparent distress Weight / BMI Weight Weight: 275 lb 9.245 oz Body Mass Index (BMI) 39.5 ABG / Lab / Microbiology Data 04/17/25 11:57 04/09/25 07:45 Laboratory: Laboratory Results - last 24 hr 04/16/25 20:29: POC Glucose 382 H 04/16/25 22:39: POC Glucose 360 H 04/17/25 05:15: Hgb 12.3 L, Hct 37.4 L 04/17/25 06:21: POC Glucose 309 H 04/17/25 11:51: POC Glucose 278 H 04/17/25 11:57: Hgb 11.6 L, Hct 35.9 L D/C Instructions Discharge Diet: Light diet - advance as tolerated Discharge Activity: Return to Normal Activity and May Shower May shower in (days): 1 Ice area for (Minutes): 30 Call your doctor if your incision/area has: Continuous Slow Oozing, Sudden Increased Bleeding, Increased Pain/ Swelling, Increased Redness, Foul Smelling Discharge and Swelling at the incision site Call your doctor if you observe: Fever of 101 or Higher Cleanse incision/area with: Soap & Water DC O2, CPAP, BIPAP Needs Home O2 Discharge instructions: No DC home with Oxygen: No Additional Instructions: Empty and record MONSERRAT drain output daily. Also please strip drains several times per day as well. Please Follow Up With: Thaddeus Ro MD When: Early next week. Please call office to schedule appointment Meaningful Use Info Meaningful Use Meaningful Use Diagnoses (Choose all that apply): None applicable Ischemic Stroke Statin Dosing Therapy Reference: STATIN DOSE THERAPY REFERENCE: * Patients > 75 years receive moderate or high dose statin therapy. * Patients 75 years or YOUNGER should receive HIGH intensity statin dose unless contraindicated. You will be required to document reason for non-treatment if statin daily dose does not meet guidelines. HIGH DOSE STATIN THERAPY DAILY Atorvastatin > than or = to 40 mg Rosuvastatin > than or = to 20 mg Amlodipine + Atorvastatin > than or = to 2.5/40 mg Ezetimibe + Simvastatin 10/80 mg Simvastatin 80mg Discharge Plan Admission Admit Date/Time: 04/16/25 14:27 Primary Reason for Your Visit: Left breast mastectomy Attending Provider: Thaddeus Ro Primary Care Provider: Ivy Julian Discharge Orders/Prescriptions Prescriptions: New oxycodone-acetaminophen [Percocet] 5-325 mg tablet 1 tab PO Q8H PRN (Reason: pain) 3 Days Qty: 7 0RF Continued glipizide 10 mg tablet extended release 24hr 10 mg PO QDAY carvedilol 3.125 mg tablet 3.125 mg PO BID metformin 1,000 mg tablet 1,000 mg PO BID atorvastatin 40 mg tablet 40 mg PO QPM aspirin [Adult Aspirin Regimen] 81 mg tablet,delayed release (DR/EC) 81 mg PO QDAY Patient Comments: PT PLANS TO HOLD 7 DAYS PRIOR TO SURGERY rosuvastatin [Crestor] 10 mg tablet 10 mg PO QDAY Held clopidogrel 75 mg tablet 75 mg PO QDAY Hold Instructions: Resume on 04/22/25. Patient Comments: PT PLANS TO HOLD 7 DAYS PRIOR TO SURGERY Other Ambulatory Orders: 12 Lead EKG (Routine) Timeframe: [id number] Location: None Selected Ordered By: Dr. Taras Sparrow Referrals / Follow Up: Ivy Julian PA [Primary Care Provider] - Disposition Disposition (needs filled in before D/C Order can be placed): Home, Self Care
== END 2025-04-17 17:20 | disposition home or self-care (01) ==
LOC: MS3 04-17 08:31 → SDC 04-17 09:46 → MS3 04-17 09:46
PROVIDERS: Anesthesiology; Admitting Provider Surgery; PCP Physician Assistant; Referring Provider Surgery; Visit Provider Surgery
PROC: (CPT 19307; principal; 2025-04-16 10:45)
DX: C50.922 Malignant neoplasm of unspecified site of left male breast (principal); E11.9 Type 2 diabetes mellitus without complications; I10 Essential (primary) hypertension; E78.00 Pure hypercholesterolemia, unspecified; L72.3 Sebaceous cyst; Z79.899 Other long term (current) drug therapy; Z87.891 Personal history of nicotine dependence; Z79.82 Long term (current) use of aspirin; Z79.02 Long term (current) use of antithrombotics/antiplatelets
CPT/HCPCS: 19303; 11406; 38525; 00400; 36415; 38792; 80048; 82962; 83036; 85014; 85018; 85027; 88307; 88331; 88332; 88341; 88342; 93005; 94668; 96361; 96374; 97161; 99221; A4648; A9520; A4216; G0378; J2405